=== PATIENT | female | born 1950 | race Caucasian/White ===

== ENCOUNTER 2023-05-22 08:50 | Emergency (ER) | payer OTHER, SELFPAY ==
[2023-05-22 08:57] VITALS: BP 101/59
[2023-05-22 09:05] LABS: Glucose - Point of Care 197 mg/dl (70-99)
[2023-05-22 09:58] LABS: Hemoglobin 13.7 g/dL (12.0-16.0); Mean Corp Hgb Conc. 36.1 g/dL (33.0-37.0); Mean Corpuscular Hgb 31.1 pg (27.0-31.0); Mean Corpuscular Volume 86.4 fL (81.0-99.0); Mean Platelet Volume 10.6 fL (7.4-10.4); Platelet Count 240 10^3/uL (130-400); Red Cell Dist. Width 11.9 % (11.5-14.5); White Blood Cell Count 7.7 10^3/uL (4.8-10.8)
[2023-05-22 10:13] LABS: ALT (SGPT) 16 U/L (0-35); AST (SGOT) 19 U/L (14-36); Albumin 3.5 g/dl (3.5-5.0); Alkaline Phosphatase 133 U/L (38-126); Blood Urea Nitrogen 14 mg/dl (7-17); Calcium 9.4 mg/dl (8.4-10.2); Carbon Dioxide 24 mmol/L (22-30); Chloride 101 mmol/L (98-107); Glucose 211 mg/dl (70-99); Potassium 4.2 mmol/L (3.5-5.1); Sodium 135 mmol/L (135-145); Total Bilirubin 0.6 mg/dl (0.2-1.3); Total Protein 6.1 g/dl (6.3-8.2); eGFR > 60.00
--- NOTE | 2023-05-22 10:47 | ED.GENMED ---
History of Present Illness
General
Chief Complaint: Blood Sugar Problem
Source: patient
Exam Limitations: none
Time Seen by Provider: 05/22/23 09:18
Nursing documentation reviewed up to this point in time: agreed with
Travel History
Have you had any contact with someone who has COVID-19?: No
Do you have any symptoms of coronavirus? Fever > 100 degrees, chills, cough, shortness of breath, sore throat, loss of taste or smell, muscle aches, or headache?: No
History of Present Illness
History of Present Illness:
Patient with history of type 2 diabetes on metformin, with recent hemoglobin A1c 13 last week, presents to ED secondary to elevated blood sugar noted on her glucometer this morning, which registered 'high' when checked multiple times. Denies
abdominal pain. Denies nausea or vomiting. Denies fever or chills. Denies recent illness. Denies recent change in medications or diet. Patient is scheduled to speak with her primary care physician next week regarding her treatment. In the
meantime, patient does admit that she has not been as careful with her diet.
Past History
Past History
ED Past Medical History: CAD, Cancer (basal cell), GERD, HTN, Hypercholesterolemia, NIDDM, Psychiatric (Anxiety, Depression) and Other (Restless leg syndrome, josefina ramirez, PNA)
ED Past Surgical History: Cardiac (Stents x 4), Gynecological (Partial hysterectomy), Orthopedic (Foot surgery, Carpal tunnel, Knee surgery X 3), Tonsilectomy and Other (Basal cell removal, breast augmentation)
Social History
Tobacco: Smoker
Alcohol: None
Drug: None
Personal:
Living: alone
Employment: Employed
Family History
Family History: Other
Review of Systems
Review of Systems
Allergies reviewed?: Yes
All Other Systems: ROS reviewed and negative except as documented in HPI and ROS
Constitutional: Reports no symptoms
EENT: Reports no symptoms
Respiratory: Reports no symptoms
ABD/GI: Reports no symptoms
: Reports no symptoms
Musculoskeletal: Reports no symptoms
Skin: Reports no symptoms
Neurological: Reports no symptoms
Phy Exam
Physical Exam
Physical Exam:
Physical Exam
General: no apparent distress, not acutely ill. afebrile
Head: nc/at. eomi
Neck: supple. no meningeal signs
Heart: s1/s2 regular rate and rhythm, no murmur. equal radial pulses.
Lungs: no acute respiratory distress. clear bilaterally
Abdomen: normal bowel sounds. not tender.
Neuro: alert and oriented. no focal neurological deficits
Skin: no rash
Psychiatric: well kept. interactive and cooperative
Extremities: no edema. no calf tenderness.
Course
Orders/Labs/Results
Orders:
Orders
05/22/23 09:53
Complete Blood Count/No Diff Urgent
Comprehensive Metabolic Panel Urgent
Abnormal Lab Results
05/22/23 05/22/23
09:02 09:53
MCH 31.1 H pg
(27.0-31.0)
MPV 10.6 H fL
(7.4-10.4)
Creatinine 0.5 L mg/dL
(0.6-1.0)
Glucose 211 H mg/dl
(70-99)
Alkaline Phosphatase 133 H U/L
(38-126)
Total Protein 6.1 L g/dl
(6.3-8.2)
POC Glucose 197 H mg/dl
(70-99)
05/22/23 09:53
05/22/23 09:53
Vital Signs
Initial and Last Documented VS:
Initial Vital Signs
Temp Pulse Resp BP Pulse Ox
98.1 F 79 18 101/59 98
05/22/23 08:57 05/22/23 08:57 05/22/23 08:57 05/22/23 08:57 05/22/23 08:57
Last Documented Vital Signs
Temp Pulse Resp BP Pulse Ox
98.1 F 78 16 121/74 98
05/22/23 08:57 05/22/23 11:25 05/22/23 11:25 05/22/23 11:25 05/22/23 11:25
MDM/Problems Addressed
MDM/Problems Addressed:
Blood work noted, significant for mild hyperglycemia without anion gap. Patient otherwise remains afebrile, hemodynamically stable, and nontoxic-appearing. Patient advised to speak with her primary care physician tomorrow regarding her treatment
plan, including obtaining or recalibrating her glucometer.
*Critical Care Note
Total Time (30-74mins, 75-104mins- exclusive of procedures): Not Applicable
ED Attending Note
-
Portions of this chart may have been created with voice recognition software.� Occasional wrong word or��sound alike� substitutions may have occurred due to the inherent limitations of voice recognition software.
Discharge Plan
Departure
Patient Disposition: Home (Routine Discharge)
Date of Disposition: 05/22/23
Time of Disposition: 11:08
Patient with high blood pressure during this ER visit?: Yes
Discharge Problem:
Hyperglycemia
Instructions: Guide to Eating When You Have Diabetes, High Blood Sugar, Adult (DC), Diabetes and diet
Prescriptions:
No Action
pramipexole 0.25 MG tablet
0.5 mg PO QPM
Patient Comments:
FOR RESTLESS LEGS
Rx Instructions:
MAY TAKE 0.75MG
spironolactone 25 MG tablet
50 mg PO DAILY
losartan 25 MG tablet
25 mg PO DAILY
ibuprofen [Advil] 200 MG tablet
200 mg PO PRN PRN (Reason: arthritis )
aspirin [Aspirin Childrens] 81 MG tablet,chewable
81 mg PO DAILY
nitroglycerin 0.4 MG tablet, sublingual
0.4 mg sublingual [id number] PRN (Reason: chest pain) Qty: 25 2RF
metformin 1,000 MG tablet
1,000 mg PO BID Qty: 0 0RF
simvastatin 40 mg Tablet
40 mg PO HS
furosemide [Lasix] 20 mg Tablet
20 mg PO DAILY PRN (Reason: ANKLE SWELLING)
repaglinide 2 mg Tablet
2 mg PO BID
Patient Comments:
BEFORE MEALS
cholecalciferol (vitamin D3) [Vitamin D3] 50 mcg (2,000 unit) Capsule
50 mcg PO DAILY
gabapentin 400 mg Tablet
400 mg PO DAILY
estradiol 0.01 % (0.1 mg/gram) Cream
1 g VAGINAL .TWICE PER WEEK
doxycycline hyclate 100 mg capsule
100 mg PO BID 10 Days Qty: 20 0RF
oxycodone 5 mg tablet
5 mg PO Q8H PRN (Reason: Pain) Qty: 10 0RF
azithromycin 250 mg tablet
250 mg PO DAILY 4 Days Qty: 4 0RF
Referrals:
Fly,Mimi, DO [Family Provider] -
Activity Restrictions/Additional Instructions:
As discussed, please follow-up with your primary care physician for reevaluation, including potentially adding a second agent to your current diabetic medication regimen.
Interventions
Interventions:
*Risk Screen - Suicide Last Done: 05/22/23 08:59
*General Assessment Last Done: 05/22/23 08:59
*Neglect/Abuse Screening Last Done: 05/22/23 08:59
ED- Fall Risk Assessment Last Done: 05/22/23 11:25
*ED COVID-19 Vaccine History Last Done: 05/22/23 08:59
*Nursing Disposition Last Done: 05/22/23 11:25
ED- Neurological Assessment Last Done: 05/22/23 09:46
Discharge Date and Time
Discharge Date/Time: 05/22/23 11:26
[2023-05-22 11:25] VITALS: BP 121/74
== END 2023-05-22 11:26 | disposition home or self-care (01) ==
LOC: EMR 08:50
PROVIDERS: EMERGENCY PHYSICIAN Emergency Medicine; FAMILY PHYSICIAN Internal Medicine
DX: E11.65 Type 2 diabetes mellitus with hyperglycemia (principal); I25.10 Atherosclerotic heart disease of native coronary artery without angina pectoris; K21.9 Gastro-esophageal reflux disease without esophagitis; I10 Essential (primary) hypertension; E78.00 Pure hypercholesterolemia, unspecified; G25.81 Restless legs syndrome; F17.200 Nicotine dependence, unspecified, uncomplicated; Z95.5 Presence of coronary angioplasty implant and graft
CPT/HCPCS: 99283; 80053; 82962; 85027

== ENCOUNTER 2023-05-26 11:22 | Emergency (ER) | payer OTHER, SELFPAY ==
[2023-05-26 11:30] VITALS: BP 134/80
--- NOTE | 2023-05-26 11:59 | ED.GENMED ---
History of Present Illness
General
Chief Complaint: Musculo-Skeletal Complaint
Time Seen by Provider: 05/26/23 11:40
Travel History
Have you had any contact with someone who has COVID-19?: No
Do you have any symptoms of coronavirus? Fever > 100 degrees, chills, cough, shortness of breath, sore throat, loss of taste or smell, muscle aches, or headache?: No
History of Present Illness
History of Present Illness:
73-year-old female presents to the emergency department for evaluation of right upper chest wall pain ongoing for the past 2 to 3 weeks. She states it began after receiving a forceful hug from her boyfriend and has not relented since onset. Pain
is pleuritic, nonradiating. Has not taken any [id number] medications for symptoms. Denies any cough or shortness of breath, denies any leg swelling
Past History
Past History
ED Past Medical History: CAD, Cancer (basal cell), GERD, HTN, Hypercholesterolemia, NIDDM, Psychiatric (Anxiety, Depression) and Other (Restless leg syndrome, josefina ramirez, PNA)
ED Past Surgical History: Cardiac (Stents x 4), Gynecological (Partial hysterectomy), Orthopedic (Foot surgery, Carpal tunnel, Knee surgery X 3), Tonsilectomy and Other (Basal cell removal, breast augmentation)
Social History
Tobacco: Smoker
Alcohol: None
Drug: None
Personal:
Living: alone
Employment: Employed
Family History
Family History: Other
Review of Systems
Review of Systems
Allergies reviewed?: Yes
All Other Systems: ROS reviewed and negative except as documented in HPI and ROS
Phy Exam
Physical Exam
Physical Exam:
GEN: Well appearing, NAD, WDWN
HEENT: Oral mucosa moist, no scleral icterus
Cardiac: Regular rate and rhythm, no murmurs
Lung: No respiratory distress, no tachypnea, lungs clear to auscultation bilaterally
MSK: No gross deformity or injuries. Focal chest wall tenderness to the right anterior axillary line, no crepitus or deformities
Skin: Good color, no pallor or jaundice, no rashes
Neuro: AO x3, moves all extremities freely
Psych: Calm, cooperative
Course
Orders/Labs/Results
Orders:
Orders
05/26/23 11:59
CR Chest - 2 Views Urgent
Comment:
Reason For Exam: R chest injury
Vital Signs
Initial and Last Documented VS:
Initial Vital Signs
Temp Pulse Resp BP Pulse Ox
98.8 F 89 18 134/80 97
05/26/23 11:30 05/26/23 11:30 05/26/23 11:30 05/26/23 11:30 05/26/23 11:30
Last Documented Vital Signs
Temp Pulse Resp BP Pulse Ox
98.8 F 89 18 134/80 97
05/26/23 11:30 05/26/23 11:30 05/26/23 11:30 05/26/23 11:30 05/26/23 11:30
MDM/Problems Addressed
MDM/Problems Addressed:
Patient's chest x-ray was independently interpreted by me showing no evidence for osseous abnormality or pulmonary injury. Likely chest wall pain on the basis of prior trauma, recommend NSAIDs and topical lidocaine
*Critical Care Note
Total Time (30-74mins, 75-104mins- exclusive of procedures): Not Applicable
ED Attending Note
-
Portions of this chart may have been created with voice recognition software.� Occasional wrong word or��sound alike� substitutions may have occurred due to the inherent limitations of voice recognition software.
Discharge Plan
Departure
Patient Disposition: Home (Routine Discharge)
Date of Disposition: 05/26/23
Time of Disposition: 13:23
Patient with high blood pressure during this ER visit?: No
Discharge Problem:
Muscle strain of anterior chest wall
Instructions: Chest Pain That Is Not Caused by the Heart (DC)
Prescriptions:
No Action
pramipexole 0.25 MG tablet
0.5 mg PO QPM
Patient Comments:
FOR RESTLESS LEGS
Rx Instructions:
MAY TAKE 0.75MG
spironolactone 25 MG tablet
50 mg PO DAILY
losartan 25 MG tablet
25 mg PO DAILY
ibuprofen [Advil] 200 MG tablet
200 mg PO PRN PRN (Reason: arthritis )
aspirin [Aspirin Childrens] 81 MG tablet,chewable
81 mg PO DAILY
nitroglycerin 0.4 MG tablet, sublingual
0.4 mg sublingual [id number] PRN (Reason: chest pain) Qty: 25 2RF
metformin 1,000 MG tablet
1,000 mg PO BID Qty: 0 0RF
simvastatin 40 mg Tablet
40 mg PO HS
furosemide [Lasix] 20 mg Tablet
20 mg PO DAILY PRN (Reason: ANKLE SWELLING)
repaglinide 2 mg Tablet
2 mg PO BID
Patient Comments:
BEFORE MEALS
cholecalciferol (vitamin D3) [Vitamin D3] 50 mcg (2,000 unit) Capsule
50 mcg PO DAILY
gabapentin 400 mg Tablet
400 mg PO DAILY
estradiol 0.01 % (0.1 mg/gram) Cream
1 g VAGINAL .TWICE PER WEEK
doxycycline hyclate 100 mg capsule
100 mg PO BID 10 Days Qty: 20 0RF
oxycodone 5 mg tablet
5 mg PO Q8H PRN (Reason: Pain) Qty: 10 0RF
azithromycin 250 mg tablet
250 mg PO DAILY 4 Days Qty: 4 0RF
Referrals:
Fly,Mimi, DO [Family Provider] -
Activity Restrictions/Additional Instructions:
Try ibuprofen and topical lidocaine patches for pain control
Interventions
Interventions:
*Risk Screen - Suicide Last Done: 05/26/23 11:30
*General Assessment Last Done: 05/26/23 11:30
*Neglect/Abuse Screening Last Done: 05/26/23 11:30
ED- Fall Risk Assessment Last Done: 05/26/23 12:07
*Nursing Disposition Last Done: 05/26/23 13:34
ED- Cardiac Assessment Last Done: 05/26/23 12:07
ED-Musculoskeletal Assessment Last Done: 05/26/23 12:07
ED- Pulmonary Assessment Last Done: 05/26/23 12:07
Discharge Date and Time
Discharge Date/Time: 05/26/23 13:35
== END 2023-05-26 13:35 | disposition home or self-care (01) ==
LOC: EMR 11:22
PROVIDERS: EMERGENCY PHYSICIAN Student in an Organized Health Care Education/Training Program; FAMILY PHYSICIAN Internal Medicine
DX: S29.011A Strain of muscle and tendon of front wall of thorax, initial encounter (principal); R07.89 Other chest pain; S21.101A Unspecified open wound of right front wall of thorax without penetration into thoracic cavity, initial encounter; X58.XXXA Exposure to other specified factors, initial encounter; Y93.89 Activity, other specified
CPT/HCPCS: 99283; 71046

== ENCOUNTER → 2023-06-29 11:43 | Day surgery (SDC) | payer OTHER, SELFPAY | LOC: SDS 11:43 | PROVIDERS: ATTENDING PHYSICIAN Internal Medicine | DX: D32.0 Benign neoplasm of cerebral meninges (principal); R40.0 Somnolence | CPT/HCPCS: 70553; A9575 ==

== ENCOUNTER 2023-07-19 22:12 | Emergency (ER) | payer OTHER, SELFPAY ==
[2023-07-19 22:15] VITALS: BP 118/60
[2023-07-19 22:39] LABS: % Basophils 0.7 % (0-2); % Eosinophils 1.8 % (0-6); % Immature Granulocytes 0.8 % (0-0.5); % Lymphocytes 24.3 % (20.5-51.1); % Monocytes 7.9 % (1.7-9.3); % Neutrophils 64.5 % (42.2-75.2); Absolute Basophils 0.1 10^3/uL (0-0.2); Absolute Eosinophils 0.2 10^3/uL (0-0.7); Absolute Immature Granulocytes 0.1 10^3/uL (0-0.05); Absolute Lymphocytes 2.1 10^3/uL (1.2-3.4); Absolute Monocytes 0.7 10^3/uL (0.1-0.6); Absolute Neutrophils 5.6 10^3/uL (1.4-6.5); Hematocrit 39.3 % (37.0-47.0); Hemoglobin 13.5 g/dL (12.0-16.0); Mean Corp Hgb Conc. 34.4 g/dL (33.0-37.0); Mean Corpuscular Hgb 30.3 pg (27.0-31.0); Mean Corpuscular Volume 88.1 fL (81.0-99.0); Mean Platelet Volume 9.8 fL (7.4-10.4); Nucleated Red Blood Cells % 0 %; Platelet Count 253 10^3/uL (130-400); Red Blood Cell Count 4.46 10^6/uL (4.20-5.40); Red Cell Dist. Width 12.9 % (11.5-14.5); White Blood Cell Count 8.7 10^3/uL (4.8-10.8)
[2023-07-19 22:51] LABS: ALT (SGPT) 20 U/L (0-35); AST (SGOT) 25 U/L (14-36); Alkaline Phosphatase 118 U/L (38-126); Blood Urea Nitrogen 25 mg/dl (7-17); Calcium 9.5 mg/dl (8.4-10.2); Carbon Dioxide 29 mmol/L (22-30); Chloride 105 mmol/L (98-107); Glucose 89 mg/dl (70-99); Potassium 4.5 mmol/L (3.5-5.1); Sodium 138 mmol/L (135-145); Total Bilirubin 0.4 mg/dl (0.2-1.3); Total Protein 6.6 g/dl (6.3-8.2); eGFR 53.39
[2023-07-20] VITALS (8 sets, daily range): BP systolic 96–133; BP diastolic 60–85; PULSE 73–80; BMI 27.8
--- NOTE | 2023-07-20 00:06 | ED.GENMED ---
History of Present Illness
General
Chief Complaint: Fainting Sensation
Source: patient
Exam Limitations: none
Time Seen by Provider: 07/19/23 23:40
Travel History
Have you had any contact with someone who has COVID-19?: No
Do you have any symptoms of coronavirus? Fever > 100 degrees, chills, cough, shortness of breath, sore throat, loss of taste or smell, muscle aches, or headache?: No
History of Present Illness
History of Present Illness:
This is a 73 year old female that comes in with c/o dizziness. States that she awoke yesterday morning around 4-4:30am and she was very dizzy. States that she felt like her head was spinning and she felt like she was going to pass out. States that
she could hardly walk. States that she went back to sleep till about 10:30am. States that she still felt dizzy when she got up and felt like she was going to pass out. State that she decided to wait to see if she felt better as she didn't want to
drive like that. States that she feels some better towards the end of the day but she still feels lightheaded. States that she did have a little diarrhea today. Denies any fever, chills, chest pain, SOB, abd pain, nausea, vomiting, headache, urinary
burning.
Past History
Past History
ED Past Medical History: CAD, Cancer (basal cell), GERD, HTN, Hypercholesterolemia, NIDDM, [place], Psychiatric (Anxiety, Depression) and Other (Restless leg syndrome, josefina ramirez, PNA, Headache, )
ED Past Surgical History: Cardiac (Stents x 4), Cholecystectomy, Gynecological (Partial hysterectomy), Orthopedic (Foot surgery, Carpal tunnel, Knee surgery X 3), Tonsilectomy and Other (Basal cell removal, breast augmentation, Abd adhesions )
Social History
Tobacco: Former smoker
Alcohol: Occasional
Drug: None
Personal:
Living: alone
Employment: Employed
Family History
Family History: Other
Review of Systems
Review of Systems
All Other Systems: ROS reviewed and negative except as documented in HPI and ROS
Constitutional: Reports no symptoms; Denies fever or chills
EENT: Reports no symptoms
Respiratory: Reports no symptoms; Denies cough or trouble breathing
Cardiac: Reports no symptoms; Denies chest pain
ABD/GI: Reports diarrhea; Denies abdominal pain, nausea or vomiting
: Reports no symptoms; Denies dysuria, frequency or urgency
Musculoskeletal: Reports no symptoms
Skin: Reports no symptoms
Neurological: Reports dizzy; Denies headache
Psychiatric: Reports no symptoms
Phy Exam
General Physical Exam
General Presentation: no apparent distress
General age: appears stated age
General Skin: warm and dry
General Habitus: elderly
General Mental: alert
General Hydration: appears well hydrated
ENT Exam
ENT Exam: TM's normal, pharynx normal and neck supple
Eye Exam
Eye Exam: PERRL and EOMI
Cardiovascular Exam
Cardiovascular Exam: regular rate/rhythm, no murmur and normal peripheral pulses
Pulmonary Exam
Pulmonary Exam: lungs clear, no respiratory distress, no rales, chest non tender, no crackles, no rhonchi, no wheezing and no cough
Gastrointestinal Exam
Gastrointestinal Exam: normal bowel sounds, soft, no organomegaly, no pulsatile mass, non distended and tender (Epigastric tenderness with palpation)
NIH Stroke Score
Level of Consciousness: 0 - Alert
LOC questions: 0-Answers both correctly
LOC Commands: 0-Performs both correctly
Best Gaze: 0-Normal
Visual Lloyd: 0=Normal, no visual loss
Facial palsy: 0=Normal, symmetrical
Motor - Right Arm: 0=No drift 10 seconds
Motor - Left Arm: 0=No drift 10 seconds
Motor - Right Le-No drift 5 seconds
Motor - Left Le-No drift 5 seconds
Limb Ataxia: 0-Absent
Sensation: 0-Normal
Best Language: 0-No aphasia
Dysarthria: 0-Normal
Extinction and Inattention: 0-No abnormality
Total Score:: 0
Musculoskeletal Exam
Musculoskeletal Exam: full ROM and edema (+1 pitting edema of ankles)
Skin Exam
Skin Exam: normal color, warm/dry, no rash and no petechia
Psychiatric Exam
Psychiatric Exam: normal mood/affect
Course
Orders/Labs/Results
Orders:
Orders
07/19/23 22:17
Electrocardiogram (*1) Urgent
Reason for Study: Syncope
EKG- Treatment ONCE
07/19/23 22:32
CMP [Comprehensive Metabolic Panel] Urgent
Complete Blood Count/With Diff Urgent
07/20/23 00:05
CT Head W/o Iv Contrast Urgent
Comment:
Reason For Exam: dizziness, feels her balance was off
Orthostatic VS- Treatment ONCE
0.9% Sodium Chloride 1000 ml [Nss] 1,000 ml IV BOLUS
07/20/23 01:13
Troponin I Urgent
Abnormal Lab Results
07/19/23
22:32
Abs Immat Gran (auto) 0.1 H 10^3/uL
(0-0.05)
Absolute Monos (auto) 0.7 H 10^3/uL
(0.1-0.6)
Immature Gran % 0.8 H %
(0-0.5)
BUN 25 H mg/dl
(7-17)
Creatinine 1.1 H mg/dL
(0.6-1.0)
07/19/23 22:32
07/19/23 22:32
Dehydration. Troponin <0.012
Vital Signs
Initial and Last Documented VS:
Initial Vital Signs
Temp Pulse Resp BP Pulse Ox
97.4 F 86 18 118/60 98
07/19/23 22:15 07/19/23 22:15 07/19/23 22:15 07/19/23 22:15 07/19/23 22:15
Last Documented Vital Signs
Temp Pulse Resp BP Pulse Ox
97.4 F 74 14 96/60 93
07/19/23 22:15 07/20/23 01:00 07/20/23 01:00 07/20/23 01:00 07/20/23 01:00
MDM/Problems Addressed
Differential Diagnosis Includes:
vertigo, dehydration.
MDM/Problems Addressed:
This is a 73 year old female that comes in with c/o dizziness. State that she got up at 4-4:30am and was dizzy. States that her head was spinning and she felt like she was going to pass out. States that she went back to bed and slept till 10:30am.
States that she was still dizzy when she got up. States that she waited to see if she would feel better and it got a little better. However, she felt she needed to be seen.
Will get labs, CT head. Give IV fluids
Back into see patient. patient resting comfortable. Explained that her blood work shows dehydration and her CT of the head was normal. Questioned patient how she felt when she stood up for the Orthostatic vitals signs. States that she was still
dizzy and had to hold onto the stretcher. Will walk patient after Troponin is back.
Back into see patient. Explained that the troponin is normal. Got patient OOB to ambulate. Patient states that she just feels like her head is not clear and is a little unsteady on her feet. States that she feels better then she did before. Was
going to admit patient due to dizziness and patient refused. States that she needs to go home. Will discharge patient home .
Chronic conditions affecting care: DM
Acute Exacerbation and/or Progression of Chronic Illness:
NA
*Radiology
Radiology exam reviewed: radiology read reviewed (CT head- No acute intracranial findinigs. No evidence of intracranial hemorrhage, mass-effect, midline shift, or extra-axial fluid collection. Atherosclerotic vascular diseae. )
*Pulse Oximetry
Patient hypoxic: no
*EKG
Interpreted by ED Provider?: Yes
Heart Rate: 78
Rate: normal
Rhythm: sinus
[place]: normal axis
Interval: normal interval
QRS Pattern: normal QRS
Ischemia: no ischemia
*Critical Care Note
Total Time (30-74mins, 75-104mins- exclusive of procedures): Not Applicable
ED Attending Note
-
Portions of this chart may have been created with voice recognition software.� Occasional wrong word or��sound alike� substitutions may have occurred due to the inherent limitations of voice recognition software.
Discharge Plan
Departure
Patient Disposition: Home (Routine Discharge)
Date of Disposition: 07/20/23
Time of Disposition: 02:07
Patient with high blood pressure during this ER visit?: No
Condition: Good
Covid-19: Not Applicable
Discharge Problem:
Acute dehydration, Dizziness
Instructions: Dehydration, Adult (DC), Dizziness, Adult ED
Prescriptions:
No Action
pramipexole 0.25 MG tablet
0.5 mg PO QPM
Patient Comments:
FOR RESTLESS LEGS
Rx Instructions:
MAY TAKE 0.75MG
spironolactone 25 MG tablet
50 mg PO DAILY
losartan 25 MG tablet
25 mg PO DAILY
ibuprofen [Advil] 200 MG tablet
200 mg PO PRN PRN (Reason: arthritis )
aspirin [Aspirin Childrens] 81 MG tablet,chewable
81 mg PO DAILY
nitroglycerin 0.4 MG tablet, sublingual
0.4 mg sublingual [id number] PRN (Reason: chest pain) Qty: 25 2RF
metformin 1,000 MG tablet
1,000 mg PO BID Qty: 0 0RF
simvastatin 40 mg Tablet
40 mg PO HS
furosemide [Lasix] 20 mg Tablet
20 mg PO DAILY PRN (Reason: ANKLE SWELLING)
repaglinide 2 mg Tablet
2 mg PO BID
Patient Comments:
BEFORE MEALS
cholecalciferol (vitamin D3) [Vitamin D3] 50 mcg (2,000 unit) Capsule
50 mcg PO DAILY
gabapentin 400 mg Tablet
400 mg PO DAILY
estradiol 0.01 % (0.1 mg/gram) Cream
1 g VAGINAL .TWICE PER WEEK
doxycycline hyclate 100 mg capsule
100 mg PO BID 10 Days Qty: 20 0RF
oxycodone 5 mg tablet
5 mg PO Q8H PRN (Reason: Pain) Qty: 10 0RF
azithromycin 250 mg tablet
250 mg PO DAILY 4 Days Qty: 4 0RF
Referrals:
Fly,Mimi, DO [Family Provider] - Follow up in 2-3 days
Activity Restrictions/Additional Instructions:
As discussed, your blood work shows that you are dehydrated. Please increase your water intake to 8-8oz glasses daily. Your CT of the head was normal along with your Troponin. You have been offered admission but refused. Please follow up with the
family doctor for further evaluation. IF YOU HAVE ANY OTHER CONCERNS PLEASE RETURN TO THE EMERGENCY ROOM.
Interventions
Interventions:
*Risk Screen - Suicide Last Done: 07/19/23 22:15
*General Assessment Last Done: 07/19/23 23:54
*Neglect/Abuse Screening Last Done: 07/19/23 22:15
ED- Fall Risk Assessment Last Done: 07/19/23 23:54
*ED COVID-19 Vaccine History Last Done: 07/19/23 23:54
ED- Neurological Assessment Last Done: 07/19/23 23:54
ED- Cardiac Assessment Last Done: 07/19/23 23:54
Discharge Date and Time
Print Language: ICELANDIC
[2023-07-20] MEDS: NSS 1000 IV (01:12)
[2023-07-20 02:01] LABS: Troponin I < 0.012 ng/ml
== END 2023-07-20 02:37 | disposition home or self-care (01) ==
LOC: EMR 22:12
PROVIDERS: Clinical Nurse Specialist Family Health; EMERGENCY PHYSICIAN Student in an Organized Health Care Education/Training Program; FAMILY PHYSICIAN Internal Medicine
DX: R42 Dizziness and giddiness (principal); E86.0 Dehydration; I25.10 Atherosclerotic heart disease of native coronary artery without angina pectoris; K21.9 Gastro-esophageal reflux disease without esophagitis; I10 Essential (primary) hypertension; E78.00 Pure hypercholesterolemia, unspecified; E11.9 Type 2 diabetes mellitus without complications; I25.2 Old myocardial infarction; F41.8 Other specified anxiety disorders; G25.81 Restless legs syndrome; Z87.891 Personal history of nicotine dependence; Z90.49 Acquired absence of other specified parts of digestive tract; Z95.5 Presence of coronary angioplasty implant and graft
CPT/HCPCS: 99284; 96360; 70450; 80053; 84484; 85025; 93005

== ENCOUNTER → 2023-07-29 18:30 | Outpatient (REF) | payer OTHER, SELFPAY | LOC: MRI 3T 18:30 | PROVIDERS: ATTENDING PHYSICIAN Orthopaedic Surgery Hand Surgery; FAMILY PHYSICIAN Internal Medicine | DX: S43.101A Unspecified dislocation of right acromioclavicular joint, initial encounter (principal); M25.511 Pain in right shoulder | CPT/HCPCS: 73221 ==

== ENCOUNTER 2023-09-30 22:23 | Emergency (ER) | payer OTHER, SELFPAY ==
[2023-09-30 22:29] VITALS: BP 134/68
[2023-09-30 22:44] LABS: Urine Albumin Negative (Neg - Trace); Urine Bilirubin Negative (Negative); Urine Character Slightly Cloudy (Clear); Urine Color Yellow; Urine Glucose Negative (Negative); Urine Ketone Negative (Negative); Urine Leukocyte 2+ (Negative); Urine Nitrite Negative (Negative); Urine Occult Blood Trace (Negative); Urine Specific Gravity 1.015 (<1.030); Urine Urobilinogen Negative (Neg - 1+)
[2023-09-30 22:51] LABS: Urine Bacteria Many (Negative); Urine Red Blood Cell 0-2 /HPF (0-2); Urine White Cell 26-30 /HPF (0-5)
[2023-09-30 22:52] VITALS: BMI 27.3
[2023-09-30 23:10] LABS: % Basophils 0.9 % (0-2); % Eosinophils 1.3 % (0-6); % Immature Granulocytes 0.4 % (0-0.5); % Lymphocytes 25.5 % (20.5-51.1); % Monocytes 6.8 % (1.7-9.3); % Neutrophils 65.1 % (42.2-75.2); Absolute Basophils 0.1 10^3/uL (0-0.2); Absolute Eosinophils 0.1 10^3/uL (0-0.7); Absolute Lymphocytes 1.9 10^3/uL (1.2-3.4); Absolute Monocytes 0.5 10^3/uL (0.1-0.6); Absolute Neutrophils 4.9 10^3/uL (1.4-6.5); Hematocrit 38.1 % (37.0-47.0); Hemoglobin 13.3 g/dL (12.0-16.0); Mean Corp Hgb Conc. 34.9 g/dL (33.0-37.0); Mean Corpuscular Hgb 30.4 pg (27.0-31.0); Mean Corpuscular Volume 87.2 fL (81.0-99.0); Mean Platelet Volume 9.9 fL (7.4-10.4); Nucleated Red Blood Cells % 0 %; Platelet Count 250 10^3/uL (130-400); Red Blood Cell Count 4.37 10^6/uL (4.20-5.40); Red Cell Dist. Width 12.5 % (11.5-14.5); White Blood Cell Count 7.5 10^3/uL (4.8-10.8)
[2023-09-30 23:18] VITALS: BP 142/77
--- NOTE | 2023-09-30 23:22 | ED.GENMED ---
History of Present Illness
General
Chief Complaint: Back Pain
Time Seen by Provider: 09/30/23 23:09
Travel History
Have you had any contact with someone who has COVID-19?: No
Do you have any symptoms of coronavirus? Fever > 100 degrees, chills, cough, shortness of breath, sore throat, loss of taste or smell, muscle aches, or headache?: No
History of Present Illness
History of Present Illness:
HPI: The patient has been having back pain / UTI symptoms 8d ago and was seen by PCP 7d ago and placed on Keflex. Tried Advil w/o improvement. She has been having back pain. She states she does not normally have dysuria with her urinary tract
infections but rather just has back pain.
EXAM:
GENERAL: Well appearing in no distress
HEENT: Moist oral mucosa
CARDIOVASCULAR: No murmurs, normal heart rate, regular rhythm, No chest wall tenderness
PULMONARY: No respiratory distress, breath sounds are clear and equal
ABDOMEN: Soft with no peritoneal signs, mild suprapubic tenderness
BACK: No CVA tenderness other than perhaps minimal right CVA tenderness
NEUROLOGIC: Excellent strength all extremities, no coordination deficits
PSYCHIATRIC: Appropriate mental status, normal insight and judgement
EXTREMITIES: Nontender, no edema, moves all extremities equally
SKIN: No rash, no lesions
TIME OF INITIAL ENCOUNTER: 11:20 PM
NUMBER AND COMPLEXITY OF PROBLEMS ADDRESSED AT THE ENCOUNTER
� Chronic conditions affecting care: High blood pressure, hyperlipidemia, CAD/VT, diabetes, anxiety/depression, thyroid disease
� Acute Exacerbation and/or Progression of Chronic Illness: This is an acute but recurring problem
� Differential Diagnosis includes: UTI, pyelonephritis, ureteral stone, diverticulitis unlikely
AMOUNT AND/OR COMPLEXITY OF DATA TO BE REVIEWED AND ANALYZED
� I performed an independent evaluation of and my interpretation is:
EKG:
CT:
X-rays:
Laboratory Studies: White count normal at 7.5, urinalysis shows 26-30 white cells with many bacteria and 2+ leukocyte esterase. Renal function normal.
Other:
� Review of other/old records: I look for old records but there are no old urine cultures for review. The patient was seen here with dehydration 2 months ago.
� Clinical information was obtained by an independent historian: None needed
� Prescriptions/Medications Considered but not given:
� Further testing considered but not performed: CT imaging however the patient has no significant CVA tenderness and symptoms are more consistent with UTI as opposed to kidney stone.
RISK OF COMPLICATIONS AND/OR MORBIDITY OR MORTALITY OF PATIENT MANAGEMENT
� Social determinants of health affecting care: Lives at home
� Discussion with other providers:
� Escalation of care including admission/observation vs risk of discharge considered: The patient is a diabetic and still has signs of urinary tract infection despite being on oral medications. Therefore I offered and considered
admission to the hospital however the patient strong prefers outpatient management show I feel would be reasonable. Give a dose of IV Rocephin as well as Toradol and will also switch to Cipro. She states she is tolerated Cipro in the past.
Past History
Past History
ED Past Medical History: CAD, Cancer (basal cell), GERD, HTN, Hypercholesterolemia, NIDDM, [place], Psychiatric (Anxiety, Depression) and Other (Restless leg syndrome, josefina ramirez, PNA, Headache, )
ED Past Surgical History: Cardiac (Stents x 4), Cholecystectomy, Gynecological (Partial hysterectomy), Orthopedic (Foot surgery, Carpal tunnel, Knee surgery X 3), Tonsilectomy and Other (Basal cell removal, breast augmentation, Abd adhesions )
Social History
Tobacco: Former smoker
Alcohol: Occasional
Drug: None
Personal:
Living: alone
Employment: Employed
Family History
Family History: Other
Phy Exam
Physical Exam
Physical Exam:
See HPI
Course
Orders/Labs/Results
Orders:
Orders
09/30/23 22:37
Urinalysis Reflex To Culture Urgent
Date Specimen was Collected: 09/30/23
Time Specimen was Collected: 22:36
Urine Microscopic Reflex Cult Urgent
Urine Culture Urgent
JOHNY Source: U
Specimen Description:
Date Specimen was Collected: 09/30/23
Time Specimen was Collected: 22:36
09/30/23 23:04
CMP [Comprehensive Metabolic Panel] Urgent
Complete Blood Count/With Diff Urgent
09/30/23 23:23
CefTRIAXone [Rocephin] 1,000 mg IV NOW STA
09/30/23 23:35
Ketorolac [Toradol] 15 mg IV NOW STA
Abnormal Lab Results
09/30/23 09/30/23
22:37 23:04
BUN 18 H mg/dl
(7-17)
Glucose 169 H mg/dl
(70-99)
Alkaline Phosphatase 135 H U/L
(38-126)
Ur Occult Blood Reflex Trace A
(Negative)
Leukocyte Esterase Rfl 2+ A
(Negative)
Urine WBC (Reflex) 26-30 A /HPF
(0-5)
Urine Bacteria (Reflex) Many A
(Negative)
09/30/23 23:04
09/30/23 23:04
Vital Signs
Initial and Last Documented VS:
Initial Vital Signs
Temp Pulse Resp BP Pulse Ox
99.1 F 81 15 134/68 99
09/30/23 22:29 09/30/23 22:29 09/30/23 22:29 09/30/23 22:29 09/30/23 22:29
Last Documented Vital Signs
Temp Pulse Resp BP Pulse Ox
98.4 F 83 18 142/77 99
09/30/23 23:05 09/30/23 23:18 09/30/23 23:18 09/30/23 23:18 09/30/23 23:18
*Critical Care Note
Total Time (30-74mins, 75-104mins- exclusive of procedures): Not Applicable
ED Attending Note
-
Portions of this chart may have been created with voice recognition software.� Occasional wrong word or��sound alike� substitutions may have occurred due to the inherent limitations of voice recognition software.
Discharge Plan
Departure
Patient Disposition: Home (Routine Discharge)
Date of Disposition: 09/30/23
Time of Disposition: 23:35
Patient with high blood pressure during this ER visit?: Yes
Discharge Problem:
Urinary tract infection
Prescriptions:
New
ciprofloxacin HCl 500 mg tablet
500 mg PO BID Qty: 14 0RF
No Action
pramipexole 0.25 MG tablet
0.5 mg PO QPM
Patient Comments:
FOR RESTLESS LEGS
Rx Instructions:
MAY TAKE 0.75MG
spironolactone 25 MG tablet
50 mg PO DAILY
losartan 25 MG tablet
25 mg PO DAILY
ibuprofen [Advil] 200 MG tablet
200 mg PO PRN PRN (Reason: arthritis )
aspirin [Aspirin Childrens] 81 MG tablet,chewable
81 mg PO DAILY
nitroglycerin 0.4 MG tablet, sublingual
0.4 mg sublingual [id number] PRN (Reason: chest pain) Qty: 25 2RF
metformin 1,000 MG tablet
1,000 mg PO BID Qty: 0 0RF
simvastatin 40 mg Tablet
40 mg PO HS
furosemide [Lasix] 20 mg Tablet
20 mg PO DAILY PRN (Reason: ANKLE SWELLING)
repaglinide 2 mg Tablet
2 mg PO BID
Patient Comments:
BEFORE MEALS
cholecalciferol (vitamin D3) [Vitamin D3] 50 mcg (2,000 unit) Capsule
50 mcg PO DAILY
gabapentin 400 mg Tablet
400 mg PO DAILY
estradiol 0.01 % (0.1 mg/gram) Cream
1 g VAGINAL .TWICE PER WEEK
doxycycline hyclate 100 mg capsule
100 mg PO BID 10 Days Qty: 20 0RF
oxycodone 5 mg tablet
5 mg PO Q8H PRN (Reason: Pain) Qty: 10 0RF
azithromycin 250 mg tablet
250 mg PO DAILY 4 Days Qty: 4 0RF
Activity Restrictions/Additional Instructions:
The urinalysis tonight does show signs of infection. Your white blood cell count is normal. Your blood sugar is high at 169. We gave a dose of Rocephin as well as a dose of IV Toradol to help with the pain. Continue intermittent use of
ibuprofen. You can also try Tylenol. I sent a prescription to your pharmacy for Cipro. Return here if worse. Follow-up with your primary care doctor.
Interventions
Interventions:
*Risk Screen - Suicide Last Done: 09/30/23 22:29
*General Assessment Last Done: 09/30/23 22:29
*Neglect/Abuse Screening Last Done: 09/30/23 22:29
ED-Musculoskeletal Assessment Last Done: 09/30/23 22:53
Discharge Date and Time
Print Language: CROATIAN
[2023-09-30 23:25] LABS: ALT (SGPT) 15 U/L (0-35); AST (SGOT) 22 U/L (14-36); Albumin 4.1 g/dl (3.5-5.0); Alkaline Phosphatase 135 U/L (38-126); Blood Urea Nitrogen 18 mg/dl (7-17); Calcium 9.7 mg/dl (8.4-10.2); Carbon Dioxide 24 mmol/L (22-30); Chloride 107 mmol/L (98-107); Estimated Creatinine Clearance 87 ml/min; Glucose 169 mg/dl (70-99); Sodium 141 mmol/L (135-145); Total Bilirubin 0.4 mg/dl (0.2-1.3); Total Protein 6.8 g/dl (6.3-8.2); eGFR > 60.00
[2023-09-30] MEDS: TORADOL 15 MG IV (23:39)
[2023-09-30] MEDS: ROCEPHIN 1000 MG IV (23:42)
[2023-09-30 23:50] VITALS: BP 123/66
== END 2023-10-01 00:17 | disposition home or self-care (01) ==
LOC: EMR 22:23
PROVIDERS: EMERGENCY PHYSICIAN Emergency Medicine; FAMILY PHYSICIAN Internal Medicine
DX: N39.0 Urinary tract infection, site not specified (principal); I10 Essential (primary) hypertension; Z87.891 Personal history of nicotine dependence; E11.9 Type 2 diabetes mellitus without complications
CPT/HCPCS: 99284; 96374; 96375; 80053; 81003; 81015; 85025; 87086

== ENCOUNTER 2023-10-15 16:35 | Emergency (ER) | payer OTHER, SELFPAY ==
[2023-10-15 16:46] VITALS: BP 105/57
[2023-10-15 17:40] VITALS: BP 126/53
[2023-10-15 17:47] LABS: % Basophils 0.6 % (0-2); % Immature Granulocytes 0.6 % (0-0.5); % Lymphocytes 20.2 % (20.5-51.1); % Neutrophils 71.6 % (42.2-75.2); Absolute Basophils 0.1 10^3/uL (0-0.2); Absolute Eosinophils 0.1 10^3/uL (0-0.7); Absolute Immature Granulocytes 0.1 10^3/uL (0-0.05); Absolute Lymphocytes 2.2 10^3/uL (1.2-3.4); Absolute Monocytes 0.6 10^3/uL (0.1-0.6); Absolute Neutrophils 7.6 10^3/uL (1.4-6.5); Hematocrit 40.6 % (37.0-47.0); Hemoglobin 14.3 g/dL (12.0-16.0); Mean Corp Hgb Conc. 35.2 g/dL (33.0-37.0); Mean Corpuscular Hgb 30.4 pg (27.0-31.0); Mean Corpuscular Volume 86.4 fL (81.0-99.0); Mean Platelet Volume 10.1 fL (7.4-10.4); Nucleated Red Blood Cells % 0 %; Platelet Count 237 10^3/uL (130-400); Red Cell Dist. Width 12.7 % (11.5-14.5); White Blood Cell Count 10.6 10^3/uL (4.8-10.8)
[2023-10-15 18:12] LABS: ALT (SGPT) 15 U/L (0-35); AST (SGOT) 24 U/L (14-36); Albumin 4.2 g/dl (3.5-5.0); Alkaline Phosphatase 104 U/L (38-126); Blood Urea Nitrogen 19 mg/dl (7-17); Calcium 9.5 mg/dl (8.4-10.2); Carbon Dioxide 27 mmol/L (22-30); Chloride 100 mmol/L (98-107); Glucose 142 mg/dl (70-99); Potassium 4.1 mmol/L (3.5-5.1); Sodium 138 mmol/L (135-145); Total Bilirubin 0.6 mg/dl (0.2-1.3); Total Protein 6.9 g/dl (6.3-8.2); eGFR > 60.00
--- NOTE | 2023-10-15 18:27 | ED.GENMED ---
History of Present Illness
General
Chief Complaint: Fainting Sensation
Time Seen by Provider: 10/15/23 18:12
History of Present Illness
History of Present Illness:
HPI: Patient came in because of a near syncopal event/fall. I saw this patient 2 weeks ago related to ongoing urinary symptoms which I switched antibiotic to Cipro. Today while shopping in [place], she abruptly had vertiginous symptoms. She
fell but did not strike her head and she was caught by a worker at the store. She did not have any chest pain or shortness of breath. She went home and started crying 'for 2 hours'. She was able to drive herself here.
EXAM:
GENERAL: Well appearing in no distress
HEENT: Moist oral mucosa
CARDIOVASCULAR: No murmurs, normal heart rate, regular rhythm, No chest wall tenderness
PULMONARY: No respiratory distress, breath sounds are clear and equal
ABDOMEN: Soft with no peritoneal signs, no tenderness
NEUROLOGIC: Excellent strength all extremities, no coordination deficits, normal finger-nose testing
PSYCHIATRIC: Appropriate mental status, normal insight and judgement
EXTREMITIES: Nontender, no edema, moves all extremities equally
SKIN: No rash, no lesions
TIME OF INITIAL ENCOUNTER: 6:30 PM
NUMBER AND COMPLEXITY OF PROBLEMS ADDRESSED AT THE ENCOUNTER
� Chronic conditions affecting care: High blood pressure, hyperlipidemia, CAD, diabetes, anxiety/depression
� Acute Exacerbation and/or Progression of Chronic Illness: This is an acute problem
� Differential Diagnosis includes: Positional vertigo, doubt dysrhythmia, CVA very unlikely, hypoglycemia, dehydration
AMOUNT AND/OR COMPLEXITY OF DATA TO BE REVIEWED AND ANALYZED
� I performed an independent evaluation of and my interpretation is:
EKG:
CT:
X-rays:
Laboratory Studies: White count 10.6, hemoglobin 14.3, normal renal function, glucose 142, lactic elevated
Other:
� Review of other/old records: Urine culture from 2 weeks ago suggested contamination, white count from 2 weeks ago was lower than it is tonight
� Clinical information was obtained by an independent historian: None needed
� Prescriptions/Medications Considered but not given:
� Further testing considered but not performed: Considered CT brain however the patient has a nonfocal neurologic examination with no abnormal coordination
RISK OF COMPLICATIONS AND/OR MORBIDITY OR MORTALITY OF PATIENT MANAGEMENT
� Social determinants of health affecting care: Lives at home.
� Discussion with other providers:
� Escalation of care including admission/observation vs risk of discharge considered: The patient also was concerned of UTI as a cause of her episode of vertigo. Temperature was slightly high here and states this is higher than
her typical normal�will check lactic and blood cultures as her white count is slightly higher than prior. She was restarted on another round of Cipro recently for possible UTI recurrence. Lactic 2.8 - ordered additional IVF. Given the elevation
of the lactic, urinalysis obtained but shows no sign of infection. Of note, the patient is on metformin which I suspect is the more likely cause of the mild elevation of lactate. On reassessment at 9:40 PM, the patient overall feels improved going
home.
Past History
Past History
ED Past Medical History: CAD, Cancer (basal cell), GERD, HTN, Hypercholesterolemia, NIDDM, [place], Psychiatric (Anxiety, Depression) and Other (Restless leg syndrome, josefina ramirez, PNA, Headache, )
ED Past Surgical History: Cardiac (Stents x 4), Cholecystectomy, Gynecological (Partial hysterectomy), Orthopedic (Foot surgery, Carpal tunnel, Knee surgery X 3), Tonsilectomy and Other (Basal cell removal, breast augmentation, Abd adhesions )
Social History
Tobacco: Former smoker
Alcohol: Occasional
Drug: None
Personal:
Living: alone
Employment: Employed
Family History
Family History: Other
Phy Exam
Physical Exam
Physical Exam:
See HPI
Course
Orders/Labs/Results
Orders:
Orders
10/15/23 17:43
Complete Blood Count/With Diff Urgent
Comprehensive Metabolic Panel Urgent
10/15/23 18:30
Electrocardiogram (*1) Urgent
Reason for Study: Syncope
EKG- Treatment ONCE
10/15/23 18:38
0.9% Sodium Chloride 500 ml [Nss] 500 ml IV BOLUS
10/15/23 18:50
Lactic Acid Q4H
Comment: CANCEL 2nd LACTIC ACID IF 1st LACTIC ACID IS LESS THAN 2
10/15/23 18:51
Blood Culture Q30M
JOHNY Source: Blood/Venous
Specimen Description:
Blood Culture Q30M
JOHNY Source: Blood/Venous
Specimen Description:
10/15/23 19:59
0.9% Sodium Chloride 1000 ml [Nss] 1,000 ml IV BOLUS
10/15/23 20:11
Urinalysis Reflex To Culture Urgent
Date Specimen was Collected: 10/15/23
Time Specimen was Collected: 20:08
10/15/23 21:40
Lactic Acid Q4H
Comment: CANCEL 2nd LACTIC ACID IF 1st LACTIC ACID IS LESS THAN 2
Abnormal Lab Results
10/15/23 10/15/23 10/15/23
17:43 18:50 20:11
Abs Immat Gran (auto) 0.1 H 10^3/uL
(0-0.05)
Absolute Neuts (auto) 7.6 H 10^3/uL
(1.4-6.5)
Immature Gran % 0.6 H %
(0-0.5)
Lymphocytes % 20.2 L %
(20.5-51.1)
BUN 19 H mg/dl
(7-17)
Glucose 142 H mg/dl
(70-99)
Lactic Acid 2.8 H mmol/L
(0.7-2.0)
Urine Ketones Trace A
(Negative)
10/15/23 17:43
10/15/23 17:43
Vital Signs
Initial and Last Documented VS:
Initial Vital Signs
Temp Pulse Resp BP Pulse Ox
99.5 F 95 18 105/57 98
10/15/23 16:46 10/15/23 16:46 10/15/23 16:46 10/15/23 16:46 10/15/23 16:46
Last Documented Vital Signs
Temp Pulse Resp BP Pulse Ox
99.5 F 95 18 126/53 98
10/15/23 16:46 10/15/23 16:46 10/15/23 16:46 10/15/23 17:40 10/15/23 16:46
*Critical Care Note
Total Time (30-74mins, 75-104mins- exclusive of procedures): Not Applicable
ED Attending Note
-
Portions of this chart may have been created with voice recognition software.� Occasional wrong word or��sound alike� substitutions may have occurred due to the inherent limitations of voice recognition software.
Discharge Plan
Departure
Patient Disposition: Home (Routine Discharge)
Date of Disposition: 10/15/23
Time of Disposition: 22:23
Patient with high blood pressure during this ER visit?: Yes
Discharge Problem:
Headache
Prescriptions:
No Action
pramipexole 0.25 MG tablet
0.5 mg PO QPM
Patient Comments:
FOR RESTLESS LEGS
Rx Instructions:
MAY TAKE 0.75MG
spironolactone 25 MG tablet
50 mg PO DAILY
losartan 25 MG tablet
25 mg PO DAILY
ibuprofen [Advil] 200 MG tablet
200 mg PO PRN PRN (Reason: arthritis )
aspirin [Aspirin Childrens] 81 MG tablet,chewable
81 mg PO DAILY
nitroglycerin 0.4 MG tablet, sublingual
0.4 mg sublingual [id number] PRN (Reason: chest pain) Qty: 25 2RF
metformin 1,000 MG tablet
1,000 mg PO BID Qty: 0 0RF
simvastatin 40 mg Tablet
40 mg PO HS
furosemide [Lasix] 20 mg Tablet
20 mg PO DAILY PRN (Reason: ANKLE SWELLING)
repaglinide 2 mg Tablet
2 mg PO BID
Patient Comments:
BEFORE MEALS
cholecalciferol (vitamin D3) [Vitamin D3] 50 mcg (2,000 unit) Capsule
50 mcg PO DAILY
gabapentin 400 mg Tablet
400 mg PO DAILY
estradiol 0.01 % (0.1 mg/gram) Cream
1 g VAGINAL .TWICE PER WEEK
doxycycline hyclate 100 mg capsule
100 mg PO BID 10 Days Qty: 20 0RF
oxycodone 5 mg tablet
5 mg PO Q8H PRN (Reason: Pain) Qty: 10 0RF
azithromycin 250 mg tablet
250 mg PO DAILY 4 Days Qty: 4 0RF
ciprofloxacin HCl 500 mg tablet
500 mg PO BID Qty: 14 0RF
Referrals:
Fly,Mimi, DO [Family Provider] -
Activity Restrictions/Additional Instructions:
Your initial lactic acid level was slightly elevated but after fluids it was back to normal. This can sometimes be seen with metformin use. Other basic work is unremarkable. The urinalysis shows no sign of infection. Return here if worse.
Interventions
Interventions:
*Risk Screen - Suicide Last Done: 10/15/23 17:50
*General Assessment Last Done: 10/15/23 17:50
*Neglect/Abuse Screening Last Done: 10/15/23 17:50
*ED COVID-19 Vaccine History Last Done: 10/15/23 22:45
*Nursing Disposition Last Done: 10/15/23 22:45
ED- Neurological Assessment Last Done: 10/15/23 17:48
Discharge Date and Time
Discharge Date/Time: 10/15/23 22:45
Print Language: [id number]
[2023-10-15] MEDS: NSS 500 IV (18:54)
[2023-10-15 19:11] LABS: Lactic Acid 2.8 mmol/L (0.7-2.0)
[2023-10-15 20:19] LABS: Urine Albumin Negative (Neg - Trace); Urine Bilirubin Negative (Negative); Urine Character Clear (Clear); Urine Color Yellow; Urine Glucose Negative (Negative); Urine Ketone Trace (Negative); Urine Leukocyte Negative (Negative); Urine Nitrite Negative (Negative); Urine Occult Blood Negative (Negative); Urine Urobilinogen Negative (Neg - 1+)
[2023-10-15] MEDS: NSS 1000 IV (20:33)
[2023-10-15 22:22] LABS: Lactic Acid 1.7 mmol/L (0.7-2.0)
== END 2023-10-15 22:45 | disposition home or self-care (01) ==
LOC: EMR 16:35
PROVIDERS: EMERGENCY PHYSICIAN Emergency Medicine; FAMILY PHYSICIAN Internal Medicine
DX: R51.9 Headache, unspecified (principal); I25.10 Atherosclerotic heart disease of native coronary artery without angina pectoris; K21.9 Gastro-esophageal reflux disease without esophagitis; I10 Essential (primary) hypertension; E78.00 Pure hypercholesterolemia, unspecified; E11.9 Type 2 diabetes mellitus without complications; G25.81 Restless legs syndrome; Z87.891 Personal history of nicotine dependence; Z90.49 Acquired absence of other specified parts of digestive tract; Z95.5 Presence of coronary angioplasty implant and graft
CPT/HCPCS: 99283; 80053; 81003; 83605; 85025; 87040; 93005

== ENCOUNTER 2023-11-01 21:18 | Emergency (ER) | payer OTHER, SELFPAY ==
[2023-11-01 21:19] VITALS: BP 115/67
[2023-11-01 21:42] VITALS: BP 115/58
[2023-11-01 21:44] VITALS: BMI 25.3
[2023-11-01 21:46] LABS: % Basophils 0.6 % (0-2); % Eosinophils 1.5 % (0-6); % Immature Granulocytes 0.4 % (0-0.5); % Lymphocytes 21.6 % (20.5-51.1); % Monocytes 5.5 % (1.7-9.3); % Neutrophils 70.4 % (42.2-75.2); Absolute Basophils 0.1 10^3/uL (0-0.2); Absolute Eosinophils 0.2 10^3/uL (0-0.7); Absolute Lymphocytes 2.2 10^3/uL (1.2-3.4); Absolute Monocytes 0.6 10^3/uL (0.1-0.6); Absolute Neutrophils 7.1 10^3/uL (1.4-6.5); Hematocrit 40.5 % (37.0-47.0); Hemoglobin 14.2 g/dL (12.0-16.0); Mean Corp Hgb Conc. 35.1 g/dL (33.0-37.0); Mean Corpuscular Hgb 30.5 pg (27.0-31.0); Mean Corpuscular Volume 87.1 fL (81.0-99.0); Mean Platelet Volume 10.1 fL (7.4-10.4); Nucleated Red Blood Cells % 0 %; Platelet Count 268 10^3/uL (130-400); Red Blood Cell Count 4.65 10^6/uL (4.20-5.40); White Blood Cell Count 10.1 10^3/uL (4.8-10.8)
[2023-11-01 22:00] VITALS: BP 105/59
[2023-11-01 22:00] LABS: ALT (SGPT) 13 U/L (0-35); AST (SGOT) 21 U/L (14-36); Albumin 4.3 g/dl (3.5-5.0); Alkaline Phosphatase 115 U/L (38-126); Blood Urea Nitrogen 30 mg/dl (7-17); Calcium 9.7 mg/dl (8.4-10.2); Carbon Dioxide 34 mmol/L (22-30); Chloride 97 mmol/L (98-107); Estimated Creatinine Clearance 53 ml/min; Glucose 185 mg/dl (70-99); Potassium 3.9 mmol/L (3.5-5.1); Sodium 139 mmol/L (135-145); Total Bilirubin 0.5 mg/dl (0.2-1.3); Total Protein 6.9 g/dl (6.3-8.2); eGFR > 60.00
--- NOTE | 2023-11-01 22:15 | ED.GENMED ---
History of Present Illness
<Dhiraj Craven MD, Resident - Last Filed: 11/04/23 22:34>
General
Chief Complaint: Fainting Sensation
Time Seen by Provider: 11/01/23 21:34
History of Present Illness
History of Present Illness:
73-year-old female with history of hypertension, hyperlipidemia, CAD status post CABG , type 2 diabetes melitis, anxiety, depression presented to the ED with complaints of lightheadedness for the past 3 to 4 days she describes the lightheaded as a
feeling of passing out. Although she typically walks unassisted, she has needed to hold onto something to walk over the past few days. She admits symptoms are worse with standing from sitting position. She has also been feeling lethargic and
fatigued for the past 6 months. This morning, she has she was so lightheaded that she could not drive to her family doctor. While texting a friend of her symptoms in a car, she fell asleep for over an hour. Upon waking up and stepping out of the
car, she felt like passing out. She experienced the same feeling in the afternoon and slept for like 4 to 5 hours before deciding to come to the ED for further evaluation. She mentioned that sometimes she feels like she walks like a 'drunk lady'.
The patient denies headache ,room spinning ,double vision ,chest pain, and shortness of breath.
Past History
<Dhiraj Craven MD, Resident - Last Filed: 11/04/23 22:34>
Past History
ED Past Medical History: CAD, Cancer (basal cell), GERD, HTN, Hypercholesterolemia, NIDDM, PR, Psychiatric (Anxiety, Depression) and Other (Restless leg syndrome, josefina ramirez, PNA, Headache, )
ED Past Surgical History: Cardiac (Stents x 4), Cholecystectomy, Gynecological (Partial hysterectomy), Orthopedic (Foot surgery, Carpal tunnel, Knee surgery X 3), Tonsilectomy and Other (Basal cell removal, breast augmentation, Abd adhesions )
Social History
Tobacco: Former smoker
Alcohol: Occasional
Drug: None
Personal:
Living: alone
Employment: Employed
Family History
Family History: Other
Review of Systems
<Dhiraj Craven MD, Resident - Last Filed: 11/04/23 22:34>
Review of Systems
Neurological: Reports dizzy
Phy Exam
<Dhiraj Craven MD, Resident - Last Filed: 11/04/23 22:34>
General Physical Exam
General Presentation: well appearing and no apparent distress
Eye Exam
Eye Exam: PERRL and other (no horizontal nystagmus)
Cardiovascular Exam
Cardiovascular Exam: regular rate/rhythm
Pulmonary Exam
Pulmonary Exam: lungs clear, no rales, no crackles, no rhonchi and no wheezing
Gastrointestinal Exam
Gastrointestinal Exam: normal bowel sounds and tender (epigastrium and left lower quadrant, no guarding, no rigidity, no rebound tenderness)
Neurological Exam
Neurological Exam: alert and oriented x3
Psychiatric Exam
Psychiatric Exam: normal mood/affect
Course
<Dhiraj Craven MD, Resident - Last Filed: 11/04/23 22:34>
Orders/Labs/Results
Orders:
Orders
11/01/23 21:31
EKG [Electrocardiogram (*1)] Urgent
Reason for Study: Vertigo / Dizzy
EKG- Treatment ONCE
11/01/23 21:36
CBC/With Diff [Complete Blood Count/With Diff] Urgent
CMP [Comprehensive Metabolic Panel] Urgent
11/01/23 22:39
CT Head W/o Iv Contrast Urgent
Comment:
Reason For Exam: dizziness, history of meningioma
0.9% Sodium Chloride 500 ml [Nss] 500 ml IV BOLUS
Abnormal Lab Results
11/01/23
21:36
Absolute Neuts (auto) 7.1 H 10^3/uL
(1.4-6.5)
Chloride 97 L mmol/L
(98-107)
Carbon Dioxide 34 H mmol/L
(22-30)
BUN 30 H mg/dl
(7-17)
Glucose 185 H mg/dl
(70-99)
11/01/23 21:36
11/01/23 21:36
Vital Signs
Initial and Last Documented VS:
Initial Vital Signs
Temp Pulse Resp BP Pulse Ox
98.1 F 88 22 115/67 99
11/01/23 21:19 11/01/23 21:19 11/01/23 21:19 11/01/23 21:19 11/01/23 21:19
Last Documented Vital Signs
Temp Pulse Resp BP Pulse Ox
98.1 F 90 22 136/82 94
11/01/23 21:19 11/02/23 00:15 11/02/23 00:15 11/02/23 00:00 11/02/23 00:15
<Inocente Nathan, DO - Last Filed: 11/01/23 22:42>
Orders/Labs/Results
Orders:
Orders
11/01/23 21:31
EKG [Electrocardiogram (*1)] Urgent
Reason for Study: Vertigo / Dizzy
EKG- Treatment ONCE
11/01/23 21:36
CBC/With Diff [Complete Blood Count/With Diff] Urgent
CMP [Comprehensive Metabolic Panel] Urgent
11/01/23 22:39
CT Head W/o Iv Contrast Urgent
Comment:
Reason For Exam: dizziness, history of meningioma
0.9% Sodium Chloride 500 ml [Nss] 500 ml IV BOLUS
Abnormal Lab Results
11/01/23
21:36
Absolute Neuts (auto) 7.1 H 10^3/uL
(1.4-6.5)
Chloride 97 L mmol/L
(98-107)
Carbon Dioxide 34 H mmol/L
(22-30)
BUN 30 H mg/dl
(7-17)
Glucose 185 H mg/dl
(70-99)
11/01/23 21:36
11/01/23 21:36
Vital Signs
Initial and Last Documented VS:
Initial Vital Signs
Temp Pulse Resp BP Pulse Ox
98.1 F 88 22 115/67 99
11/01/23 21:19 11/01/23 21:19 11/01/23 21:19 11/01/23 21:19 11/01/23 21:19
Last Documented Vital Signs
Temp Pulse Resp BP Pulse Ox
98.1 F 90 22 136/82 94
11/01/23 21:19 11/02/23 00:15 11/02/23 00:15 11/02/23 00:00 11/02/23 00:15
<Dhiraj Craven MD, Resident - Last Filed: 11/04/23 22:34>
*Critical Care Note
Total Time (30-74mins, 75-104mins- exclusive of procedures): Not Applicable
<Dhiraj Craven MD, Resident - Last Filed: 11/04/23 22:34>
Update Note
Update Note:
73-year-old female presented to the ED with lightheadedness. Patient has a history of meningioma. MRI of the brain 06/29/2023 showed no acute intracranial abnormalities 8 to 10 mm lateral left frontal meningioma without secondary complication. EKG
shows normal sinus rhythm and laboratory evaluation reveals hyperglycemia. Head CT is to be ordered to rule out neurological conditions. IV fluids given for mild dehydration. These episodes of lightheadedness could be due to arrhythmia. We will
observe the patient for couple hours. If everything remains stable, the plan is for her to follow-up with her family doctor and a speeder operator to discuss placing a Holter monitor to monitor her heart rate.
ED Attending Note
<Dhiraj Craven MD, Resident - Last Filed: 11/04/23 22:34>
-
Portions of this chart may have been created with voice recognition software.� Occasional wrong word or��sound alike� substitutions may have occurred due to the inherent limitations of voice recognition software.
<Inocente Nathan DO - Last Filed: 11/01/23 22:42>
ED Attending Note
Patient seen and examined by attending physician: Yes
I performed a history and physical exam of patient and discussed management with resident, I reviewed resident's note and agree with documented findings and plan of care.: Yes
ED Attending Note:
I have seen and evaluated the patient with a [id number] encounter. I have spoken to the advance practicer provider and involved in the medical history, the physical exam, medical decision making.
Evaluation and management service: agree unless noted differently below.
Results interpretation: agree unless noted differently below.
Focused HPI: 73-year-old female presenting with lightheadedness. This has been ongoing for the past few days. It usually occurs in the morning when she gets out of bed. Patient was worried because it is happening at nighttime. Patient denies
chest pain, shortness of breath or headache. Patient denies palpitations
Physical exam: Sitting in bed comfortably. Negative Mateo-Hallpike. Normal finger-nose bilaterally. Heart regular rate and rhythm. Symptomatic when going from supine to seated
Medical Decision Making: We discussed likely orthostasis. Will give IV fluids. Given her risk factors and active smoker, will obtain CT head. After we had a long discussion about her symptoms, patient started to explain how much stress she is
under. We discussed that her stress could be a factor in all of her symptoms. Patient does agree and acknowledge. We also discussed different ways of smoking cessation. If patient feeling better after fluids and if CT head is negative, we
discussed talking to her PCP and speeder operator about a possible Holter monitor
Discharge Plan
Departure
Patient Disposition: Home (Routine Discharge)
Date of Disposition: 11/02/23
Time of Disposition: 00:21
Patient with high blood pressure during this ER visit?: Yes
Condition: Good
Discharge Problem:
Near syncope
Prescriptions:
No Action
pramipexole 0.25 MG tablet
0.5 mg PO QPM
Patient Comments:
FOR RESTLESS LEGS
Rx Instructions:
MAY TAKE 0.75MG
spironolactone 25 MG tablet
50 mg PO DAILY
losartan 25 MG tablet
25 mg PO DAILY
ibuprofen [Advil] 200 MG tablet
200 mg PO PRN PRN (Reason: arthritis )
aspirin [Aspirin Childrens] 81 MG tablet,chewable
81 mg PO DAILY
nitroglycerin 0.4 MG tablet, sublingual
0.4 mg sublingual [id number] PRN (Reason: chest pain) Qty: 25 2RF
metformin 1,000 MG tablet
1,000 mg PO BID Qty: 0 0RF
simvastatin 40 mg Tablet
40 mg PO HS
furosemide [Lasix] 20 mg Tablet
20 mg PO DAILY PRN (Reason: ANKLE SWELLING)
repaglinide 2 mg Tablet
2 mg PO BID
Patient Comments:
BEFORE MEALS
cholecalciferol (vitamin D3) [Vitamin D3] 50 mcg (2,000 unit) Capsule
50 mcg PO DAILY
gabapentin 400 mg Tablet
400 mg PO DAILY
estradiol 0.01 % (0.1 mg/gram) Cream
1 g VAGINAL .TWICE PER WEEK
doxycycline hyclate 100 mg capsule
100 mg PO BID 10 Days Qty: 20 0RF
oxycodone 5 mg tablet
5 mg PO Q8H PRN (Reason: Pain) Qty: 10 0RF
azithromycin 250 mg tablet
250 mg PO DAILY 4 Days Qty: 4 0RF
ciprofloxacin HCl 500 mg tablet
500 mg PO BID Qty: 14 0RF
Referrals:
Fly,Mimi, DO [Family Provider] - Follow up in 2-3 days
Saad Hunt DO [Active] - Follow up in 5-7 days
Activity Restrictions/Additional Instructions:
IF symptoms return of chest pain, dizziness, palpitations, SOB please return to ED as soon as possible.
Interventions
Interventions:
*Risk Screen - Suicide Last Done: 11/01/23 21:20
*General Assessment Last Done: 11/01/23 21:44
*Neglect/Abuse Screening Last Done: 11/01/23 21:20
ED- Fall Risk Assessment Last Done: 11/01/23 21:44
*Nursing Disposition Last Done: 11/02/23 00:36
ED- Neurological Assessment Last Done: 11/01/23 21:44
ED- Cardiac Assessment Last Done: 11/01/23 21:44
Discharge Date and Time
Discharge Date/Time: 11/02/23 00:39
Print Language: MACEDONIAN
[2023-11-01] MEDS: NSS 500 IV (22:47)
[2023-11-01 23:00] VITALS: BP 125/67
[2023-11-02] VITALS: BP 136/82
== END 2023-11-02 00:39 | disposition home or self-care (01) ==
LOC: EMR 21:18
PROVIDERS: EMERGENCY PHYSICIAN Student in an Organized Health Care Education/Training Program; FAMILY PHYSICIAN Internal Medicine
DX: R55 Syncope and collapse (principal); I10 Essential (primary) hypertension; E78.00 Pure hypercholesterolemia, unspecified; I25.10 Atherosclerotic heart disease of native coronary artery without angina pectoris; Z95.1 Presence of aortocoronary bypass graft; E11.9 Type 2 diabetes mellitus without complications; Z87.891 Personal history of nicotine dependence
CPT/HCPCS: 99284; 96360; 70450; 80053; 85025; 93005

== ENCOUNTER 2023-11-19 14:12 | Emergency (ER) | payer OTHER, SELFPAY ==
[2023-11-19 14:14] VITALS: BP 131/85
--- NOTE | 2023-11-19 15:15 | ED.MUSCINJ ---
HPI-Injury
General
Chief Complaint: Musculo-Skeletal Complaint
Source: patient
Exam Limitations: none
Time Seen by Provider: 11/19/23 15:14
Nursing documentation reviewed up to this point in time: agreed with
History of Present Illness-Injury
Initial Injury comments:
73-year-old female with history of HTN, HLD, SC, GERD, NIDDM, anxiety/depression presents with R shoulder pain that started last p.m.. No recollection of overuse or recent injury.
Patient injured right shoulder in a fall October 2022. She was evaluated at [facility] and followed up with Dr. Freire. 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 Freire. She cannot afford the surgery at this
time. The pain she has today is different than her typical pain from this injury. Her chronic pain is upper scapular area. This pain is over the humeral head. She took Ibuprofen 400 mg twice with no relief. Pain with any movement
Past History
Past History
ED Past Medical History: CAD, Cancer (basal cell), GERD, HTN, Hypercholesterolemia, NIDDM, SC, Psychiatric (Anxiety, Depression), Other (Restless leg syndrome, josefina ramirez, PNA, Headache, ) and Other (Right shoulder deformity from fall 2022,
followed by Dr. Freire)
ED Past Surgical History: Cardiac (Stents x 4), Cholecystectomy, Gynecological (Partial hysterectomy), Orthopedic (Foot surgery, Carpal tunnel, Knee surgery X 3), Tonsilectomy and Other (Basal cell removal, breast augmentation, Abd adhesions )
Social History
Tobacco: Former smoker
Alcohol: Occasional
Drug: None
Personal:
Living: alone
Employment: Employed
Family History
Family History: Other
Review of Systems
Review of Systems
Allergies reviewed?: Yes
All Other Systems: ROS reviewed and negative except as documented in HPI and ROS
Constitutional: Denies fever
Musculoskeletal: Reports other (right shoulder pain. Chronic deformity distal clavical from previous fall.)
Skin: Reports no symptoms
Neurological: Denies weakness or numbness
Phy Exam
Physical Exam
Physical Exam:
GENERAL: No acute distress. A&Ox3.
CONSTITUTIONAL: Afebrile.
RESPIRATORY: Regular respirations, nonlabored, lungs clear.
CARDIOVASCULAR: Regular rate and rhythm, no murmurs, no rubs.
MUSCULOSKELETAL: Very tender over humeral head anterior and laterally, No notable swelling. Significant limited ROM. Distal n/v intact. Well perfused.
SKIN: Warm, dry, pink
PSYCH: Normal mood and affect. Well kept, interactive and appropriate
NEUROLOGIC: Awake, alert and oriented. No focal neurological deficits. Hand grasps equal 5/5.
Injury Course
Orders/Labs/Results
Orders:
Orders
11/19/23 14:19
CR Shoulder - Right Min 2 View Urgent
Comment:
Reason For Exam: pain
11/19/23 15:34
Bedside Glucose- Treatment ONCE
11/19/23 16:06
Ketorolac [Toradol] 30 mg IM NOW STA
Abnormal Lab Results
11/19/23
15:35
POC Glucose 171 H mg/dl
(70-99)
MDM/Problems Addressed
Differential Diagnosis Includes:
bursitis, calcific bursitis, sprain
MDM/Problems Addressed:
73-year-old female with history of HTN, HLD, SC, GERD, NIDDM, anxiety/depression presents with R shoulder pain that started last p.m.. No recollection of overuse or recent injury.
Patient injured right shoulder in a fall October 2022. She was evaluated at [facility] and followed up with Dr. Freire. 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 Freire. She cannot afford the surgery at this
time. The pain she has today is different than her typical pain from this injury. Her chronic pain is upper scapular area. This pain is over the humeral head. She took Ibuprofen 400 mg twice with no relief. Pain with any movement
X-ray right shoulder initially read by this examiner: Mild DJD, nothing acute
Sent a prescription for diclofenac gel to patient's pharmacy, she received a message on her phone that her insurance does not cover it. She states she has no money so that prescription was canceled
She states she was here once before and someone gave her something for pain that was nonnarcotic started with the T and it worked well. Assuming it is Toradol we will give her a dose of IM Toradol right now and send a prescription to her pharmacy
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 Pt offered sling but states she has a sling at home she will lose. Stressed importance of follow up w Dr. Freire.
She was very appreciative of the care.
*Critical Care Note
Total Time (30-74mins, 75-104mins- exclusive of procedures): Not Applicable
ED Attending Note
-
Portions of this chart may have been created with voice recognition software.� Occasional wrong word or��sound alike� substitutions may have occurred due to the inherent limitations of voice recognition software.
Discharge Plan
Departure
Patient Disposition: Home (Routine Discharge)
Date of Disposition: 11/19/23
Time of Disposition: 15:59
Patient with high blood pressure during this ER visit?: No
Condition: Good
Discharge Problem:
Acute pain of right shoulder, Acute bursitis of right shoulder
Instructions: Ketorolac (Systemic), Shoulder Bursitis (DC)
Prescriptions:
New
ketorolac 10 mg tablet
10 mg PO Q8H PRN (Reason: Pain) Qty: 20 0RF
Rx Instructions:
maximum total duration of 5 days from all oral, intranasal, or parenteral formulations
No Action
pramipexole 0.25 MG tablet
0.5 mg PO QPM
Patient Comments:
FOR RESTLESS LEGS
Rx Instructions:
MAY TAKE 0.75MG
spironolactone 25 MG tablet
50 mg PO DAILY
losartan 25 MG tablet
25 mg PO DAILY
ibuprofen [Advil] 200 MG tablet
200 mg PO PRN PRN (Reason: arthritis )
aspirin [Aspirin Childrens] 81 MG tablet,chewable
81 mg PO DAILY
nitroglycerin 0.4 MG tablet, sublingual
0.4 mg sublingual [id number] PRN (Reason: chest pain) Qty: 25 2RF
metformin 1,000 MG tablet
1,000 mg PO BID Qty: 0 0RF
simvastatin 40 mg Tablet
40 mg PO HS
furosemide [Lasix] 20 mg Tablet
20 mg PO DAILY PRN (Reason: ANKLE SWELLING)
repaglinide 2 mg Tablet
2 mg PO BID
Patient Comments:
BEFORE MEALS
cholecalciferol (vitamin D3) [Vitamin D3] 50 mcg (2,000 unit) Capsule
50 mcg PO DAILY
gabapentin 400 mg Tablet
400 mg PO DAILY
estradiol 0.01 % (0.1 mg/gram) Cream
1 g VAGINAL .TWICE PER WEEK
doxycycline hyclate 100 mg capsule
100 mg PO BID 10 Days Qty: 20 0RF
oxycodone 5 mg tablet
5 mg PO Q8H PRN (Reason: Pain) Qty: 10 0RF
azithromycin 250 mg tablet
250 mg PO DAILY 4 Days Qty: 4 0RF
ciprofloxacin HCl 500 mg tablet
500 mg PO BID Qty: 14 0RF
Referrals:
Mimi Keller DO [Family Provider] -
Kehinde Freire MD [Active] - Next open appointment
Activity Restrictions/Additional Instructions:
As we discussed, I sent a prescription to your pharmacy for Toradol 10 mg to to take every 8 hours as needed for pain. Do not use it for more than one week.
Call Dr. Freire's office Tuesday a.m. for next available appointment as he MAY recommend an injection for pain
Your blood sugar is 171 so we cannot use steroids at this time.
Heating pad may help.
Interventions
Interventions:
*Risk Screen - Suicide Last Done: 11/19/23 14:14
*General Assessment Last Done: 11/19/23 14:14
*Neglect/Abuse Screening Last Done: 11/19/23 14:14
ED- Fall Risk Assessment Last Done: 11/19/23 16:36
*ED COVID-19 Vaccine History Last Done: 11/19/23 14:14
*Nursing Disposition Last Done: 11/19/23 16:36
ED-Musculoskeletal Assessment Last Done: 11/19/23 16:00
Discharge Date and Time
Discharge Date/Time: 11/19/23 16:37
Print Language: RUSSIAN
[2023-11-19 15:38] LABS: Glucose - Point of Care 171 mg/dl (70-99)
[2023-11-19] MEDS: TORADOL 30 MG IM (16:11)
== END 2023-11-19 16:37 | disposition home or self-care (01) ==
LOC: EMR 14:12
PROVIDERS: EMERGENCY PHYSICIAN Student in an Organized Health Care Education/Training Program; FAMILY PHYSICIAN Internal Medicine
DX: M75.51 Bursitis of right shoulder (principal); M25.511 Pain in right shoulder; Z87.891 Personal history of nicotine dependence; I10 Essential (primary) hypertension; E78.00 Pure hypercholesterolemia, unspecified; K21.9 Gastro-esophageal reflux disease without esophagitis; E11.9 Type 2 diabetes mellitus without complications; F41.9 Anxiety disorder, unspecified; F32.A Depression, unspecified
CPT/HCPCS: 99284; 96372; 73030; 82962

== ENCOUNTER 2023-11-26 22:01 | Emergency (ER) | payer OTHER, SELFPAY ==
[2023-11-26 22:05] VITALS: BP 130/98
[2023-11-27 00:55] VITALS: BP 145/66; BMI 25.4
--- NOTE | 2023-11-27 01:27 | ED.GENMED ---
History of Present Illness
General
Chief Complaint: Anxiety
Source: patient
Exam Limitations: none
Time Seen by Provider: 11/27/23 01:01
Nursing documentation reviewed up to this point in time: agreed with
History of Present Illness
History of Present Illness:
73-year-old female presents with anxiety. She states that for the last few years she has been increasingly anxious. She states that she is selling her home of 38 years due to inability to afford it. This has been going on for some time. She has
seen her family doctor and had a prescription for Ativan. She states that she lost the prescription before getting it filled. She denies suicidal or homicidal ideation, intent, or plan. She was seen by crisis who cleared her.
Past History
Past History
ED Past Medical History: CAD, Cancer (basal cell), GERD, HTN, Hypercholesterolemia, NIDDM, CA, Psychiatric (Anxiety, Depression), Other (Restless leg syndrome, josefina ramirez, PNA, Headache, ) and Other (Right shoulder deformity from fall 2022,
followed by Dr. Freire)
ED Past Surgical History: Cardiac (Stents x 4), Cholecystectomy, Gynecological (Partial hysterectomy), Orthopedic (Foot surgery, Carpal tunnel, Knee surgery X 3), Tonsilectomy and Other (Basal cell removal, breast augmentation, Abd adhesions )
Social History
Tobacco: Former smoker
Alcohol: Occasional
Drug: None
Personal:
Living: alone
Employment: Employed
Family History
Family History: Other
Review of Systems
Review of Systems
Allergies reviewed?: Yes
Other source history: family
All Other Systems: ROS reviewed and negative except as documented in HPI and ROS
Constitutional: Reports no symptoms; Denies fever or fatigue
EENT: Reports no symptoms
Respiratory: Reports no symptoms
Cardiac: Reports no symptoms
ABD/GI: Reports no symptoms
: Reports no symptoms
Musculoskeletal: Reports no symptoms
Skin: Reports no symptoms
Neurological: Reports no symptoms
Endocrine: Reports no symptoms
Hematologic/Lymphatic: Reports no symptoms
Psychiatric: Reports depression and anxiety; Denies suicidal or hallucinations
Phy Exam
General Physical Exam
General Presentation: well appearing and no apparent distress
General Skin: warm and dry
General Habitus: normal
General Mental: alert
General Hydration: appears well hydrated
ENT Exam
ENT Exam: EOMI, pharynx normal, neck supple and normocephalic
Eye Exam
Eye Exam: PERRL, cornea clear and conjunctiva normal
Cardiovascular Exam
Cardiovascular Exam: regular rate/rhythm, no edema, no murmur and normal peripheral pulses
Pulmonary Exam
Pulmonary Exam: lungs clear, no respiratory distress, no rales, no crackles, no rhonchi, no stridor, no wheezing and no cough
Gastrointestinal Exam
Gastrointestinal Exam: normal bowel sounds, non tender, soft, no organomegaly, no pulsatile mass and non distended
Neurological Exam
Neurological Exam: alert, oriented x3, no motor deficits and speech normal
Musculoskeletal Exam
Musculoskeletal Exam: full ROM and no edema
Skin Exam
Skin Exam: normal color, warm/dry, no rash and no petechia
Psychiatric Exam
Psychiatric Exam: anxious and depressed
Course
Vital Signs
Initial and Last Documented VS:
Initial Vital Signs
Temp Pulse Resp BP Pulse Ox
98.2 F 80 22 130/98 100
11/26/23 22:05 11/26/23 22:05 11/26/23 22:05 11/26/23 22:05 11/26/23 22:05
Last Documented Vital Signs
Temp Pulse Resp BP Pulse Ox
98.2 F 65 18 145/66 94
11/26/23 22:05 11/27/23 00:55 11/27/23 00:55 11/27/23 00:55 11/27/23 00:55
*Critical Care Note
Total Time (30-74mins, 75-104mins- exclusive of procedures): Not Applicable
Update Note
Update Note:
Patient requested prescription for Ativan. I feel that this is reasonable at this time. She has true anxiety and does have good follow-up with her family doctor. She will get a prescription for an angiolytic from him. Patient denies suicidal
homicidal ideation, intent, or plan.
ED Attending Note
-
Portions of this chart may have been created with voice recognition software.� Occasional wrong word or��sound alike� substitutions may have occurred due to the inherent limitations of voice recognition software.
Discharge Plan
Departure
Patient Disposition: Home (Routine Discharge)
Date of Disposition: 11/27/23
Time of Disposition: 01:44
Patient with high blood pressure during this ER visit?: Yes
Condition: Good
Discharge Problem:
Anxiety
Instructions: Depression, Adult (DC), Anxiety, Adult (DC), BLOOD PRESSURE
Prescriptions:
New
lorazepam [Ativan] 0.5 mg tablet
0.5 mg PO BID PRN (Reason: anxiety) Qty: 10 0RF
No Action
pramipexole 0.25 MG tablet
0.5 mg PO QPM
Patient Comments:
FOR RESTLESS LEGS
Rx Instructions:
MAY TAKE 0.75MG
spironolactone 25 MG tablet
50 mg PO DAILY
losartan 25 MG tablet
25 mg PO DAILY
ibuprofen [Advil] 200 MG tablet
200 mg PO PRN PRN (Reason: arthritis )
aspirin [Aspirin Childrens] 81 MG tablet,chewable
81 mg PO DAILY
nitroglycerin 0.4 MG tablet, sublingual
0.4 mg sublingual [id number] PRN (Reason: chest pain) Qty: 25 2RF
metformin 1,000 MG tablet
1,000 mg PO BID Qty: 0 0RF
simvastatin 40 mg Tablet
40 mg PO HS
furosemide [Lasix] 20 mg Tablet
20 mg PO DAILY PRN (Reason: ANKLE SWELLING)
repaglinide 2 mg Tablet
2 mg PO BID
Patient Comments:
BEFORE MEALS
cholecalciferol (vitamin D3) [Vitamin D3] 50 mcg (2,000 unit) Capsule
50 mcg PO DAILY
gabapentin 400 mg Tablet
400 mg PO DAILY
estradiol 0.01 % (0.1 mg/gram) Cream
1 g VAGINAL .TWICE PER WEEK
doxycycline hyclate 100 mg capsule
100 mg PO BID 10 Days Qty: 20 0RF
oxycodone 5 mg tablet
5 mg PO Q8H PRN (Reason: Pain) Qty: 10 0RF
azithromycin 250 mg tablet
250 mg PO DAILY 4 Days Qty: 4 0RF
ciprofloxacin HCl 500 mg tablet
500 mg PO BID Qty: 14 0RF
ketorolac 10 mg tablet
10 mg PO Q8H PRN (Reason: Pain) Qty: 20 0RF
Rx Instructions:
maximum total duration of 5 days from all oral, intranasal, or parenteral formulations
Referrals:
Mimi Keller DO [Family Provider] -
Liu Calderon [Active] -
Activity Restrictions/Additional Instructions:
It was a pleasure meeting you and taking part in your care. We hope for your continued healing and wellness.
Please read discharge instructions in their entirety. However, they are for general education and may not describe your exact diagnosis at discharge. Information on your ER visit and medical conditions were discussed with you along with appropriate
follow up information...
If indicated, please take your medications as instructed and indicated on discharge paperwork.
Please schedule a follow up appointment as directed. Call to schedule an appointment
Please return to the emergency department with ANY change in, persisting, or worsening of symptoms. If any of your symptoms do not improve, or persist, or become more severe within 6-12 hours, please return to the emergency department for further
care.
Please return to the emergency department if you develop a headache, neck pain/stiffness, fever greater than 100.4F, chest pain, shortness of breath, persistent nausea, vomiting, slurred speech, difficulty walking, numbness/tingling, weakness, signs
of infection or any other symptoms that are worrisome to you.
If you have any questions or concerns please do not hesitate to call the Hospital at or E-mail me directly at [email or web address]
Interventions
Interventions:
*Risk Screen - Suicide Last Done: 11/26/23 22:05
*General Assessment Last Done: 11/27/23 01:00
*Neglect/Abuse Screening Last Done: 11/26/23 22:05
ED- Fall Risk Assessment Last Done: 11/27/23 01:01
*ED COVID-19 Vaccine History Last Done: 11/27/23 01:00
*Nursing Disposition Last Done: 11/27/23 01:30
ED-Psychological Assessment Last Done: 11/27/23 01:01
Discharge Date and Time
Print Language: ETHIOPIAN
== END 2023-11-27 01:45 | disposition home or self-care (01) ==
LOC: EMR 22:01
PROVIDERS: EMERGENCY PHYSICIAN Student in an Organized Health Care Education/Training Program; FAMILY PHYSICIAN Internal Medicine
DX: F41.9 Anxiety disorder, unspecified (principal); F32.A Depression, unspecified; I10 Essential (primary) hypertension; E11.9 Type 2 diabetes mellitus without complications; E78.00 Pure hypercholesterolemia, unspecified; I25.10 Atherosclerotic heart disease of native coronary artery without angina pectoris; G25.81 Restless legs syndrome; K21.9 Gastro-esophageal reflux disease without esophagitis; Z79.84 Long term (current) use of oral hypoglycemic drugs; Z85.828 Personal history of other malignant neoplasm of skin; Z87.891 Personal history of nicotine dependence; Z95.5 Presence of coronary angioplasty implant and graft; Z90.49 Acquired absence of other specified parts of digestive tract; Z88.5 Allergy status to narcotic agent; Z88.8 Allergy status to other drugs, medicaments and biological substances; Z88.6 Allergy status to analgesic agent; Z91.041 Radiographic dye allergy status
CPT/HCPCS: 99283

== ENCOUNTER 2024-02-16 01:03 | Emergency (ER) | payer OTHER, SELFPAY ==
[2024-02-16 01:11] VITALS: BP 140/75
[2024-02-16 02:28] VITALS: BMI 38.8
--- NOTE | 2024-02-16 02:35 | ED.GENMED ---
History of Present Illness
General
Chief Complaint: Chest Pain
Source: patient and previous hospital records (Previous ED visits, November with complaints of anxiety, earlier November bursitis of the shoulder, October for episode of near syncope, September and episode of headache, February 2023 episode of chest pain.
Reportedly unremarkable negative stress test just prior to that ED visit.)
Exam Limitations: none
Time Seen by Provider: 02/16/24 02:23
Nursing documentation reviewed up to this point in time: agreed with
History of Present Illness
History of Present Illness:
This is a 73-year-old woman who has history of hypertension, hyperlipidemia, CAD with reported ID [id number] with stents x 4 at that time. She has history of GERD, [id number] diabetes as well as anxiety.
She follows with Dr. Ritter, cardiology at [place].
She states she is in the process of relocating, as such has been packing and tonight while in a storage unit, looking through boxes she developed substernal chest pressure around 11:30 PM. Chest pressure was mild to moderate in nature,
nonradiating, associated with mild shortness of breath, mild nausea but no diaphoresis, no palpitations, no dizziness nor lightheadedness. Chest pressure felt quite different from discomfort she felt with ID in 2018 at that time had severe pressure
to her back, left shoulder.
She does continue to smoke cigarettes but has been cutting down, currently at 10 cigarettes/day.
She denies heavy lifting nor injury. She has not had a cough, no fever no chills, no leg pain or swelling.
Currently chest pain-free. She did not take anything for discomfort.
Past History
Past History
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
followed by Dr. Freire)
ED Past Surgical History: Cardiac (Stents x 4 2018), Cholecystectomy, Gynecological (Partial hysterectomy), Orthopedic (Foot surgery, Carpal tunnel, Knee surgery X 3), Tonsilectomy and Other (Basal cell removal, breast augmentation, Abd adhesions )
Social History
Tobacco: Smoker
Alcohol: Occasional
Drug: None
Personal:
Living: alone
Employment: Employed
Family History
Family History: Other (Noncontributory)
Phy Exam
Physical Exam
Physical Exam:
GENERAL: 73-year-old woman appears her stated age, sleeping upon initially entering exam room. Awakens easily and once awake she is bright and alert, pleasant, appears in no acute distress.
EYE: anicteric
NECK: Supple, nontender, no meningismus, no significant adenopathy.
ENT: oral mucosa is moist. No rhinorrhea.
CARDIAC: Regular rate and rhythm. no murmur. No chest wall tenderness.
LUNGS: Clear breath sounds bilaterally, no acute respiratory distress, no wheezes/rales/rhonchi
ABDOMEN: Soft, nondistended, without focal tenderness, no r/g, normoactive BS.
NEUROLOGICAL: Alert and oriented x3, no focal neuro deficits.
SKIN: Warm and dry, normal color, skin intact. No rash.
MUSCULOSKELETAL: No C/C/E. peripheral pulses are full and equal b/l. No palpable tenderness.
PSYCH: Normal and appropriate interaction.
Scores
Heart Score for Chest Pain Patients
STEMI patient?: No
History: Slightly or Non-Suspicious
ECG: Normal
Age: >/= 65 years
Risk Factors: >/= 3 Risk Factors or History of CAD
Troponin: </= Normal Limit
Heart Score for Chest Pain Patients: 4
Heart Score Risk: 20.3% MACE over next 6 weeks
Course
Orders/Labs/Results
Orders:
Orders
02/16/24 01:04
Electrocardiogram (*1) Urgent
Reason for Study: Chest Pain
EKG- Treatment ONCE
02/16/24 02:44
Complete Blood Count/With Diff Urgent
Comprehensive Metabolic Panel Urgent
Lipase Urgent
PTT Urgent
Troponin I Urgent
02/16/24 04:27
Mag Hydrox/Al Hydrox/Simeth [Maalox] 30 ml Phenobarb/Hyoscy/Atropine/Scop [] 10 ml Viscous Lidocaine 2% [Xylocaine Viscous Cup] 10 ml PO NOW
Pantoprazole [Protonix IV] 40 mg IV NOW STA
Abnormal Lab Results
02/16/24
02:44
RBC 4.17 L 10^6/uL
(4.20-5.40)
Hct 36.2 L %
(37.0-47.0)
Chloride 108 H mmol/L
(98-107)
Creatinine 0.5 L mg/dL
(0.6-1.0)
Glucose 147 H mg/dl
(70-99)
Calcium 8.0 L mg/dl
(8.4-10.2)
Total Protein 5.7 L g/dl
(6.3-8.2)
Albumin 3.4 L g/dl
(3.5-5.0)
02/16/24 02:44
02/16/24 02:44
Vital Signs
Initial and Last Documented VS:
Initial Vital Signs
Temp Pulse Resp BP Pulse Ox
97.9 F 74 18 140/75 99
02/16/24 01:11 02/16/24 01:11 02/16/24 01:11 02/16/24 01:11 02/16/24 01:11
Last Documented Vital Signs
Temp Pulse Resp BP Pulse Ox
97.9 F 77 15 143/75 95
02/16/24 01:11 02/16/24 04:00 02/16/24 04:00 02/16/24 03:00 02/16/24 03:45
MDM/Problems Addressed
Differential Diagnosis Includes:
Concern for ACS, GERD, musculoskeletal chest wall pain. PE/dissection are unlikely.
EKG overall unremarkable and unchanged from previous October 2023.
Will check labs including troponin.
Chronic conditions affecting care: DM, HTN, CAD and Other (History of GERD)
Acute Exacerbation and/or Progression of Chronic Illness: Other (I suspect exacerbation of GERD)
*Pulse Oximetry
Patient hypoxic: no
*EKG
Interpreted by ED Provider?: Yes
Interpretation: normal
Comparison EKG: no changes (Unchanged from previous October 2023)
Rate: normal
Rhythm: sinus
Bradley: normal axis
Interval: normal interval
QRS Pattern: normal QRS
Ischemia: no ischemia
*Sharepoint Web Developer Interpretation
Rate: normal
Interpretation: normal
Rhythm: sinus
*Critical Care Note
Total Time (30-74mins, 75-104mins- exclusive of procedures): Not Applicable
Update Note
Update Note:
02/16/2024 0430 AM
Patient remains chest pain-free. Sleeps when undisturbed.
Labs are unremarkable save for mild hypocalcemia. Troponin is negative.
I suspect an element of GERD.
Will give an IV dose of Protonix.
Plan is for discharge to home with recommendations for prompt follow-up with her primary administrative law judge, Dr. Anne in [place] for recheck.
Return precautions discussed.
ED Attending Note
-
Portions of this chart may have been created with voice recognition software.� Occasional wrong word or��sound alike� substitutions may have occurred due to the inherent limitations of voice recognition software.
Discharge Plan
Departure
Patient Disposition: Home (Routine Discharge)
Date of Disposition: 02/16/24
Time of Disposition: 04:32
Patient with high blood pressure during this ER visit?: No
Condition: Good
Discharge Problem:
Nonspecific chest pain
Instructions: Acid Reflux and GERD in Adults (DC), Chest Pain NON-DHP Retail Field Representative Follow Up
Prescriptions:
No Action
pramipexole 0.25 MG tablet
0.5 mg PO QPM
Patient Comments:
FOR RESTLESS LEGS
Rx Instructions:
MAY TAKE 0.75MG
spironolactone 25 MG tablet
50 mg PO DAILY
losartan 25 MG tablet
25 mg PO DAILY
ibuprofen [Advil] 200 MG tablet
200 mg PO PRN PRN (Reason: arthritis )
aspirin [Aspirin Childrens] 81 MG tablet,chewable
81 mg PO DAILY
nitroglycerin 0.4 MG tablet, sublingual
0.4 mg sublingual [id number] PRN (Reason: chest pain) Qty: 25 2RF
metformin 1,000 MG tablet
1,000 mg PO BID Qty: 0 0RF
simvastatin 40 mg Tablet
40 mg PO HS
furosemide [Lasix] 20 mg Tablet
20 mg PO DAILY PRN (Reason: ANKLE SWELLING)
repaglinide 2 mg Tablet
2 mg PO BID
Patient Comments:
BEFORE MEALS
cholecalciferol (vitamin D3) [Vitamin D3] 50 mcg (2,000 unit) Capsule
50 mcg PO DAILY
gabapentin 400 mg Tablet
400 mg PO DAILY
estradiol 0.01 % (0.1 mg/gram) Cream
1 g VAGINAL .TWICE PER WEEK
doxycycline hyclate 100 mg capsule
100 mg PO BID 10 Days Qty: 20 0RF
oxycodone 5 mg tablet
5 mg PO Q8H PRN (Reason: Pain) Qty: 10 0RF
azithromycin 250 mg tablet
250 mg PO DAILY 4 Days Qty: 4 0RF
ciprofloxacin HCl 500 mg tablet
500 mg PO BID Qty: 14 0RF
ketorolac 10 mg tablet
10 mg PO Q8H PRN (Reason: Pain) Qty: 20 0RF
Rx Instructions:
maximum total duration of 5 days from all oral, intranasal, or parenteral formulations
lorazepam [Ativan] 0.5 mg tablet
0.5 mg PO BID PRN (Reason: anxiety) Qty: 10 0RF
Referrals:
Fly,Mimi, DO [Family Provider] -
Interventions
Interventions:
*Risk Screen - Suicide Last Done: 02/16/24 01:11
*General Assessment Last Done: 02/16/24 01:11
*Neglect/Abuse Screening Last Done: 02/16/24 01:11
ED- Fall Risk Assessment Last Done: 02/16/24 02:28
*ED COVID-19 Vaccine History Last Done: 02/16/24 02:28
ED- Cardiac Assessment Last Done: 02/16/24 02:28
Discharge Date and Time
Print Language: CENTRAL AFRICAN
[2024-02-16 02:43] VITALS: BP 150/73
[2024-02-16 03:00] VITALS: BP 143/75
[2024-02-16 03:08] LABS: % Basophils 0.6 % (0-2); % Eosinophils 2.5 % (0-6); % Immature Granulocytes 0.4 % (0-0.5); % Lymphocytes 25.3 % (20.5-51.1); % Monocytes 6.4 % (1.7-9.3); % Neutrophils 64.8 % (42.2-75.2); Absolute Basophils 0.1 10^3/uL (0-0.2); Absolute Eosinophils 0.2 10^3/uL (0-0.7); Absolute Lymphocytes 2.1 10^3/uL (1.2-3.4); Absolute Monocytes 0.5 10^3/uL (0.1-0.6); Absolute Neutrophils 5.3 10^3/uL (1.4-6.5); Hematocrit 36.2 % (37.0-47.0); Hemoglobin 12.9 g/dL (12.0-16.0); Mean Corp Hgb Conc. 35.6 g/dL (33.0-37.0); Mean Corpuscular Hgb 30.9 pg (27.0-31.0); Mean Corpuscular Volume 86.8 fL (81.0-99.0); Mean Platelet Volume 10.3 fL (7.4-10.4); Nucleated Red Blood Cells % 0 %; Platelet Count 247 10^3/uL (130-400); Red Blood Cell Count 4.17 10^6/uL (4.20-5.40); Red Cell Dist. Width 12.7 % (11.5-14.5); White Blood Cell Count 8.1 10^3/uL (4.8-10.8)
[2024-02-16 03:14] LABS: APTT 30.2 Sec (23.4-35.0)
[2024-02-16 03:26] LABS: ALT (SGPT) 13 U/L (0-35); AST (SGOT) 16 U/L (14-36); Albumin 3.4 g/dl (3.5-5.0); Alkaline Phosphatase 112 U/L (38-126); Blood Urea Nitrogen 14 mg/dl (7-17); Carbon Dioxide 22 mmol/L (22-30); Chloride 108 mmol/L (98-107); Estimated Creatinine Clearance 68 ml/min; Glucose 147 mg/dl (70-99); Lipase 247 U/L (23-300); Potassium 3.8 mmol/L (3.5-5.1); Sodium 140 mmol/L (135-145); Total Bilirubin 0.3 mg/dl (0.2-1.3); Total Protein 5.7 g/dl (6.3-8.2); eGFR > 60.00
[2024-02-16 03:29] LABS: Troponin I < 0.012 ng/ml
[2024-02-16 04:00] VITALS: BP 136/75
[2024-02-16] MEDS: PROTONIX IV 40 MG IV (04:46)
== END 2024-02-16 04:52 | disposition home or self-care (01) ==
LOC: EMR 01:03
PROVIDERS: EMERGENCY PHYSICIAN Emergency Medicine; FAMILY PHYSICIAN Internal Medicine
DX: R07.89 Other chest pain (principal); I10 Essential (primary) hypertension; E78.00 Pure hypercholesterolemia, unspecified; I25.10 Atherosclerotic heart disease of native coronary artery without angina pectoris; E11.9 Type 2 diabetes mellitus without complications; F41.9 Anxiety disorder, unspecified; G25.81 Restless legs syndrome; I25.2 Old myocardial infarction; K21.9 Gastro-esophageal reflux disease without esophagitis; Z90.49 Acquired absence of other specified parts of digestive tract; Z95.5 Presence of coronary angioplasty implant and graft; F17.210 Nicotine dependence, cigarettes, uncomplicated
CPT/HCPCS: 99283; 96374; 80053; 83690; 84484; 85025; 85730; 93005

== ENCOUNTER 2024-04-13 22:23 | Emergency (ER) | payer OTHER, SELFPAY ==
[2024-04-13 22:23] VITALS: BMI 26.4
[2024-04-13 22:39] VITALS: BP 127/64
[2024-04-13 23:00] LABS: % Basophils 0.9 % (0-2); % Eosinophils 1.8 % (0-6); % Immature Granulocytes 0.5 % (0-0.5); % Lymphocytes 25.8 % (20.5-51.1); % Monocytes 7.1 % (1.7-9.3); % Neutrophils 63.9 % (42.2-75.2); Absolute Basophils 0.1 10^3/uL (0-0.2); Absolute Eosinophils 0.2 10^3/uL (0-0.7); Absolute Lymphocytes 2.2 10^3/uL (1.2-3.4); Absolute Monocytes 0.6 10^3/uL (0.1-0.6); Absolute Neutrophils 5.5 10^3/uL (1.4-6.5); Hematocrit 39.1 % (37.0-47.0); Hemoglobin 13.5 g/dL (12.0-16.0); Mean Corp Hgb Conc. 34.5 g/dL (33.0-37.0); Mean Corpuscular Hgb 30.1 pg (27.0-31.0); Mean Corpuscular Volume 87.3 fL (81.0-99.0); Mean Platelet Volume 9.8 fL (7.4-10.4); Nucleated Red Blood Cells % 0 %; Platelet Count 247 10^3/uL (130-400); Red Blood Cell Count 4.48 10^6/uL (4.20-5.40); Red Cell Dist. Width 12.3 % (11.5-14.5); Urine Albumin Negative (Neg - Trace); Urine Bilirubin Negative (Negative); Urine Character Clear (Clear); Urine Color Straw; Urine Glucose Negative (Negative); Urine Ketone Negative (Negative); Urine Leukocyte Trace (Negative); Urine Nitrite Negative (Negative); Urine Occult Blood Negative (Negative); Urine Urobilinogen Negative (Neg - 1+); White Blood Cell Count 8.6 10^3/uL (4.8-10.8)
[2024-04-13 23:08] LABS: Urine Red Blood Cell 0-2 /HPF (0-2); Urine Squamous Cell 0-2 /LPF (Few)
[2024-04-13 23:20] LABS: ALT (SGPT) 13 U/L (0-35); AST (SGOT) 18 U/L (14-36); Alkaline Phosphatase 115 U/L (38-126); Blood Urea Nitrogen 18 mg/dl (7-17); Calcium 9.3 mg/dl (8.4-10.2); Carbon Dioxide 36 mmol/L (22-30); Chloride 96 mmol/L (98-107); Glucose 232 mg/dl (70-99); Lipase 408 U/L (23-300); Potassium 4.3 mmol/L (3.5-5.1); Sodium 136 mmol/L (135-145); Total Bilirubin 0.4 mg/dl (0.2-1.3); Total Protein 6.6 g/dl (6.3-8.2); eGFR > 60.00
[2024-04-14 05:42] VITALS: BP 118/64
[2024-04-14] MEDS: TORADOL 15 MG IM (05:46)
[2024-04-14 07:00] VITALS: BP 94/63
--- NOTE | 2024-04-14 07:14 | ED.GENMED ---
History of Present Illness
General
Chief Complaint: Abdominal Pain
Time Seen by Provider: 04/14/24 05:24
History of Present Illness
History of Present Illness:
73-year-old female with history of high blood pressure, diabetes, homelessness presenting for abdominal pain. Patient reports symptoms started yesterday on the right side with radiation to her back. Denies any nausea or vomiting. Denies any
changes in her stool. Denies any fever. Denies chest pain or difficulty breathing. Reports history of appendectomy and cholecystectomy in the past. Denies any issues with urination. She has not tried any medications for pain. Denies injury or
trauma. Denies additional acute medical
Past History
Past History
ED Past Medical History: CAD, Cancer (basal cell), GERD, HTN, Hypercholesterolemia, NIDDM, CA, Psychiatric (Anxiety, Depression), Other (Restless leg syndrome, josefina ramirez, PNA, Headache, ) and Other (Right shoulder deformity from fall 2022,
followed by Dr. Freire)
ED Past Surgical History: Cardiac (Stents x 4 2018), Cholecystectomy, Gynecological (Partial hysterectomy), Orthopedic (Foot surgery, Carpal tunnel, Knee surgery X 3), Tonsilectomy and Other (Basal cell removal, breast augmentation, Abd adhesions )
Social History
Tobacco: Smoker
Alcohol: Occasional
Drug: None
Personal:
Living: alone
Employment: Employed
Family History
Family History: Other (Noncontributory)
Phy Exam
Physical Exam
Physical Exam:
General: Well-appearing, no clinical signs of dehydration, nontoxic and in no acute distress
HEENT: protecting airway
Neck: appears supple
CV: Normal heart rate, regular rhythm
Resp: No accessory muscle use, no increased work of breathing, lungs clear to auscultation bilaterally
Abd: Soft and non-distended, mild generalized tenderness to the right side of the abdomen and right side of thoracic back, without overlying
Extremities: No deformities, no swelling
Neuro: alert, no focal neurologic deficit
: deferred
Rectal: deferred
Psych: Normal affect
Skin: Intact
Course
Orders/Labs/Results
Orders:
Orders
04/13/24 22:54
Complete Blood Count/With Diff Urgent
Comprehensive Metabolic Panel Urgent
Lipase Urgent
Urinalysis Reflex To Culture Urgent
Date Specimen was Collected: 04/13/24
Time Specimen was Collected: 22:42
Urine Microscopic Reflex Cult Urgent
04/14/24 05:39
CT Abd/pel Without Iv Or Oral Urgent
Reason For Exam: right sided abdominal and flank pain
Ketorolac [Toradol] 15 mg IM NOW STA
Abnormal Lab Results
04/13/24
22:54
Chloride 96 L mmol/L
(98-107)
Carbon Dioxide 36 H mmol/L
(22-30)
BUN 18 H mg/dl
(7-17)
Glucose 232 H mg/dl
(70-99)
Lipase 408 H U/L
(23-300)
Leukocyte Esterase Rfl Trace A
(Negative)
04/13/24 22:54
04/13/24 22:54
Vital Signs
Initial and Last Documented VS:
Initial Vital Signs
Temp Pulse Resp BP Pulse Ox
98.9 F 83 18 127/64 98
04/13/24 22:39 04/13/24 22:39 04/13/24 22:39 04/13/24 22:39 04/13/24 22:39
Last Documented Vital Signs
Temp Pulse Resp BP Pulse Ox
98.9 F 76 14 104/13 96
04/13/24 22:39 04/14/24 05:42 04/14/24 05:42 04/14/24 08:02 04/14/24 08:02
MDM/Problems Addressed
MDM/Problems Addressed:
73-year-old female presenting for right-sided abdominal pain and back pain, onset yesterday. Vital signs on arrival are normal.
On exam, patient is sleeping, requiring awakening. She is afebrile today. Mild generalized tenderness to the right side of the abdomen and the right flank. Lower suspicion for acute intra-abdominal pathology given benign examination and history
of appendectomy and cholecystectomy. Gastric pathology is a consideration versus musculoskeletal quality to pain versus kidney stone. Patient with a history of allergy to contrast. Will obtain CT imaging and continue to closely monitor
*Critical Care Note
Total Time (30-74mins, 75-104mins- exclusive of procedures): Not Applicable
ED Attending Note
-
Portions of this chart may have been created with voice recognition software.� Occasional wrong word or��sound alike� substitutions may have occurred due to the inherent limitations of voice recognition software.
Discharge Plan
Departure
Patient Disposition: Home (Routine Discharge)
Date of Disposition: 04/14/24
Time of Disposition: 09:33
Patient with high blood pressure during this ER visit?: No
Condition: Good
Discharge Problem:
Abdominal pain
Instructions: Abdominal Pain
Prescriptions:
No Action
pramipexole 0.25 MG tablet
0.5 mg PO QPM
Patient Comments:
FOR RESTLESS LEGS
Rx Instructions:
MAY TAKE 0.75MG
spironolactone 25 MG tablet
50 mg PO DAILY
losartan 25 MG tablet
25 mg PO DAILY
ibuprofen [Advil] 200 MG tablet
200 mg PO PRN PRN (Reason: arthritis )
aspirin [Aspirin Childrens] 81 MG tablet,chewable
81 mg PO DAILY
nitroglycerin 0.4 MG tablet, sublingual
0.4 mg sublingual [id number] PRN (Reason: chest pain) Qty: 25 2RF
metformin 1,000 MG tablet
1,000 mg PO BID Qty: 0 0RF
simvastatin 40 mg Tablet
40 mg PO HS
furosemide [Lasix] 20 mg Tablet
20 mg PO DAILY PRN (Reason: ANKLE SWELLING)
repaglinide 2 mg Tablet
2 mg PO BID
Patient Comments:
BEFORE MEALS
cholecalciferol (vitamin D3) [Vitamin D3] 50 mcg (2,000 unit) Capsule
50 mcg PO DAILY
gabapentin 400 mg Tablet
400 mg PO DAILY
estradiol 0.01 % (0.1 mg/gram) Cream
1 g VAGINAL .TWICE PER WEEK
doxycycline hyclate 100 mg capsule
100 mg PO BID 10 Days Qty: 20 0RF
oxycodone 5 mg tablet
5 mg PO Q8H PRN (Reason: Pain) Qty: 10 0RF
azithromycin 250 mg tablet
250 mg PO DAILY 4 Days Qty: 4 0RF
ciprofloxacin HCl 500 mg tablet
500 mg PO BID Qty: 14 0RF
ketorolac 10 mg tablet
10 mg PO Q8H PRN (Reason: Pain) Qty: 20 0RF
Rx Instructions:
maximum total duration of 5 days from all oral, intranasal, or parenteral formulations
lorazepam [Ativan] 0.5 mg tablet
0.5 mg PO BID PRN (Reason: anxiety) Qty: 10 0RF
Referrals:
UNKNOWN - PT DOES,NOT KNOW [Family Provider] -
Activity Restrictions/Additional Instructions:
You were seen in the emergency department for abdominal pain
You were found to have normal blood work and CT imaging of your abdomen
Please follow-up closely with your primary care physician.
Return to the emergency department for any worsening of your symptoms, or any development of chest pain, difficulty breathing, abdominal pain with persistent vomiting and inability to tolerate food or liquid by mouth (concern for dehydration),
weakness, headache or confusion, fever greater than 100.4, or any additional symptoms that are concerning to you.
Thank you for choosing [facility].
Interventions
Interventions:
*Risk Screen - Suicide Last Done: 04/14/24 04:04
*General Assessment Last Done: 04/14/24 04:00
*Neglect/Abuse Screening Last Done: 04/14/24 04:04
ED- Fall Risk Assessment Last Done: 04/14/24 05:35
*ED COVID-19 Vaccine History Last Done: 04/14/24 04:03
PH-Ubixkc-Dhvhbjcqhn Assessment Last Done: 04/14/24 03:57
Discharge Date and Time
Print Language: GREEK
[2024-04-14 08:02] VITALS: BP 104/13
== END 2024-04-14 10:00 | disposition home or self-care (01) ==
LOC: EMR 22:23
PROVIDERS: EMERGENCY PHYSICIAN Student in an Organized Health Care Education/Training Program
DX: R10.9 Unspecified abdominal pain (principal); E11.9 Type 2 diabetes mellitus without complications; Z59.00 Homelessness unspecified; F17.200 Nicotine dependence, unspecified, uncomplicated; I10 Essential (primary) hypertension
CPT/HCPCS: 99284; 96372; 74176; 80053; 81003; 81015; 83690; 85025

== ENCOUNTER 2024-09-04 11:23 | Emergency (ER) | payer OTHER, SELFPAY ==
[2024-09-04 11:43] VITALS: BP 153/82
[2024-09-04 12:08] LABS: % Basophils 0.4 % (0-2); % Eosinophils 0.8 % (0-6); % Immature Granulocytes 0.4 % (0-0.5); % Monocytes 6.9 % (1.7-9.3); % Neutrophils 71.5 % (42.2-75.2); Absolute Eosinophils 0.1 10^3/uL (0-0.7); Absolute Lymphocytes 1.8 10^3/uL (1.2-3.4); Absolute Monocytes 0.6 10^3/uL (0.1-0.6); Absolute Neutrophils 6.4 10^3/uL (1.4-6.5); Hematocrit 38.3 % (37.0-47.0); Hemoglobin 13.1 g/dL (12.0-16.0); Mean Corp Hgb Conc. 34.2 g/dL (33.0-37.0); Mean Corpuscular Hgb 31.9 pg (27.0-31.0); Mean Corpuscular Volume 93.2 fL (81.0-99.0); Mean Platelet Volume 10.1 fL (7.4-10.4); Nucleated Red Blood Cells % 0 %; Platelet Count 226 10^3/uL (130-400); Red Blood Cell Count 4.11 10^6/uL (4.20-5.40); White Blood Cell Count 8.9 10^3/uL (4.8-10.8)
[2024-09-04 12:22] LABS: ALT (SGPT) 12 U/L (0-35); AST (SGOT) 16 U/L (14-36); Albumin 4.1 g/dl (3.5-5.0); Alkaline Phosphatase 105 U/L (38-126); Blood Urea Nitrogen 23 mg/dl (7-17); Calcium 9.5 mg/dl (8.4-10.2); Carbon Dioxide 28 mmol/L (22-30); Chloride 107 mmol/L (98-107); Glucose 195 mg/dl (70-99); Potassium 4.9 mmol/L (3.5-5.1); Sodium 140 mmol/L (135-145); Total Bilirubin 0.5 mg/dl (0.2-1.3); Total Protein 6.6 g/dl (6.3-8.2); eGFR > 60.00
[2024-09-04 12:30] LABS: Urine Albumin Negative (Neg - Trace); Urine Bilirubin Negative (Negative); Urine Character Clear (Clear); Urine Color Yellow; Urine Glucose 1+ (Negative); Urine Ketone Negative (Negative); Urine Leukocyte 2+ (Negative); Urine Nitrite Negative (Negative); Urine Occult Blood Negative (Negative); Urine Urobilinogen Negative (Neg - 1+)
[2024-09-04 12:46] LABS: Urine Urothelial Cell 0-2 /LPF (FEW)
[2024-09-04 12:47] LABS: Urine Hyaline Cast 0-2 /LPF (0-2); Urine Squamous Cell >30 /LPF (Few)
[2024-09-04 12:49] LABS: Urine Bacteria Few (Negative); Urine Red Blood Cell 0-2 /HPF (0-2)
[2024-09-04 13:43] VITALS: BP 138/72
--- NOTE | 2024-09-04 14:09 | ED.GENMED ---
History of Present Illness
General
Chief Complaint: Dehydration Symptoms
Source: patient
Exam Limitations: none
Time Seen by Provider: 09/04/24 13:23
Nursing documentation reviewed up to this point in time: agreed with
History of Present Illness
History of Present Illness:
74-year-old female states 2 days ago she felt 'a little dizzy, she made an appointment to see her PCP and saw her PCP yesterday. At that office she states her blood pressure was 70/40 and she was sent to [facility] ER. She was given IV fluids and
magnesium and told that she was dehydrated and had acute kidney injury. She is homeless, she lives in her car, she has a boyfriend in [place] [place], she has access to food and drink and her medications, she has a [employer] dog that was in her car the
entire time she was in the ER at [facility]. They wanted to admit her to [facility] but because of her dog she refused and she signed out AMA. Prior to discharge they told her she would if she did not continue to get IV fluids as her kidneys
are failing.
She left, took her dog to her boyfriend's house in [place] today and on her way back came here instead of [facility]. She states she drank a lot more water last night and today than she usually does.
She states she feels better today, no weakness or dizziness or lightheadedness.
Past History
Past History
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
followed by Dr. Freire)
ED Past Surgical History: Cardiac (Stents x 4 2017), Cholecystectomy, Gynecological (Partial hysterectomy), Orthopedic (Foot surgery, Carpal tunnel, Knee surgery X 3), Tonsilectomy and Other (Basal cell removal, breast augmentation, Abd adhesions )
Social History
Tobacco: Smoker
Alcohol: Occasional
Drug: None
Personal:
Living: alone
Employment: Employed
Family History
Family History: Other (Noncontributory)
Review of Systems
Review of Systems
Allergies reviewed?: Yes
All Other Systems: ROS reviewed and negative except as documented in HPI and ROS
Constitutional: Denies fever or fatigue
Respiratory: Denies cough or trouble breathing
Cardiac: Denies chest pain
ABD/GI: Denies abdominal pain, nausea, vomiting, diarrhea or anorexia
: Denies dysuria, frequency or difficulty voiding
Musculoskeletal: Reports no symptoms
Skin: Reports no symptoms
Neurological: Reports no symptoms
Phy Exam
Physical Exam
Physical Exam:
GENERAL: No acute distress. A&Ox3.
CONSTITUTIONAL: Afebrile.
EYES: clear, conjunctivae normal
ENMT: moist mucus membranes, Pharynx nl
RESPIRATORY: Regular respirations, nonlabored, lungs clear.
CARDIOVASCULAR: Regular rate and rhythm, no murmurs, no rubs.
GI: Soft, nontender, normal BS
MUSCULOSKELETAL: Moves with ease. Well perfused.
SKIN: Warm, dry, pink
PSYCH: Normal mood and affect. Well kept, interactive and appropriate
NEUROLOGIC: Awake, alert and oriented. No focal neurological deficits
Course
Orders/Labs/Results
Orders:
Orders
09/04/24 11:55
Complete Blood Count/With Diff Urgent
Comprehensive Metabolic Panel Urgent
Urinalysis Reflex To Culture Urgent
Date Specimen was Collected: 09/04/24
Time Specimen was Collected: 11:49
Urine Microscopic Reflex Cult Urgent
Urine Culture Urgent
JOHNY Source: U
Specimen Description:
Date Specimen was Collected: 09/04/24
Time Specimen was Collected: 11:49
Abnormal Lab Results
09/04/24
11:55
RBC 4.11 L 10^6/uL
(4.20-5.40)
MCH 31.9 H pg
(27.0-31.0)
Lymphocytes % 20.0 L %
(20.5-51.1)
BUN 23 H mg/dl
(7-17)
Glucose 195 H mg/dl
(70-99)
Leukocyte Esterase Rfl 2+ A
(Negative)
Urine Bacteria (Reflex) Few A
(Negative)
Urine Glucose 1+ A
(Negative)
09/04/24 11:55
09/04/24 11:55
Vital Signs
Initial and Last Documented VS:
Initial Vital Signs
Temp Pulse Resp BP Pulse Ox
98.2 F 88 18 153/82 99
09/04/24 11:43 09/04/24 11:43 09/04/24 11:43 09/04/24 11:43 09/04/24 11:43
Last Documented Vital Signs
Temp Pulse Resp BP Pulse Ox
98.1 F 79 18 138/72 98
09/04/24 13:43 09/04/24 13:43 09/04/24 13:43 09/04/24 13:43 09/04/24 13:43
MDM/Problems Addressed
MDM/Problems Addressed:
[id number] female states 2 days ago she felt 'a little dizzy, she made an appointment to see her PCP and saw her PCP yesterday. At that office she states her blood pressure was 70/40 and she was sent to [facility] ER. She was given IV
fluids and magnesium and told that she was dehydrated and had acute kidney injury. She is homeless, she lives in her car, she has a boyfriend in [place], she has access to food and drink and her medications, she has a Chihuahua dog that was in her
car the entire time she was in the ER at [facility]. They wanted to admit her to [facility] but because of her dog she refused and she signed out AMA. Prior to discharge they told her she would if she did not continue to get IV fluids as her
kidneys are failing.
She left, took her dog to her boyfriend's house in [place] [facility] [place] today and on her way back came here instead of [facility]. She states she drank a lot more water last night and today than she usually does.
She states she feels better today, no weakness or dizziness or lightheadedness.
2:15 p.m.
CBC normal
CMP normal save for glucose of 195. Patient is on metformin and takes it sporadically as she does all her medications. She is informed to take it regularly
Given a copy of all her lab results
UA unremarkable
Patient is pleasant, appears well, informed her to stay hydrated.
She states she is living out of her car, she has a boyfriend in [place], she is comfortable and has access to all her medications, food and drink.
Stable for discharge.
Pharmacy updated her medication list. She states she takes her medications sporadically.
*Critical Care Note
Total Time (30-74mins, 75-104mins- exclusive of procedures): Not Applicable
ED Attending Note
-
Portions of this chart may have been created with voice recognition software.� Occasional wrong word or��sound alike� substitutions may have occurred due to the inherent limitations of voice recognition software.
Discharge Plan
Departure
Patient Disposition: Home (Routine Discharge)
Patient with high blood pressure during this ER visit?: No
Condition: Good
Discharge Problem:
Health education
Prescriptions:
No Action
pramipexole 0.25 MG tablet
0.75 mg PO QPM
aspirin [Aspirin Childrens] 81 MG tablet,chewable
81 mg PO DAILY
nitroglycerin 0.4 MG tablet, sublingual
0.4 mg sublingual [id number] PRN (Reason: chest pain) Qty: 25 2RF
metformin 1,000 MG tablet
1,000 mg PO BID Qty: 0 0RF
simvastatin 40 mg Tablet
40 mg PO HS
repaglinide 2 mg Tablet
2 mg PO AC
gabapentin 400 mg Tablet
400 mg PO DAILY
estradiol 0.01 % (0.1 mg/gram) Cream
1 g VAGINAL .TWICE PER WEEK
methylphenidate HCl [Ritalin] 5 mg Tablet
5 mg PO BID
albuterol sulfate [ProAir HFA] 90 mcg/actuation Hfa Aerosol Inhaler
2 puff INHALATION R Q6HPRN PRN (Reason: sob)
bupropion HCl [Wellbutrin XL] 150 mg Tablet Extended Release 24 Hr
150 mg PO BID
dulaglutide 4.5 mg/0.5 mL Pen Injector
4.5 mg SC QWEEK
lorazepam [Ativan] 0.5 mg tablet
0.5 mg PO BIDPRN PRN (Reason: anxiety)
Referrals:
Fly,Mimi, DO [Family Provider] - As needed
Activity Restrictions/Additional Instructions:
As we discussed, nothing worrisome in your workup here today. No sign of dehydration. No sign of kidney insufficiency. No sign of urinary tract infection.
Your blood pressure is normal.
Interventions
Interventions:
*Risk Screen - Suicide Last Done: 09/04/24 11:43
*General Assessment Last Done: 09/04/24 11:43
*Neglect/Abuse Screening Last Done: 09/04/24 11:43
*ED- Fall Risk Assessment Last Done: 09/04/24 14:00
*ED COVID-19 Vaccine History Last Done: 09/04/24 14:00
*Nursing Disposition Last Done: 09/04/24 14:37
ED- Cardiac Assessment Last Done: 09/04/24 13:36
ED- Neurological Assessment Last Done: 09/04/24 13:36
ED- Pulmonary Assessment Last Done: 09/04/24 13:36
Discharge Date and Time
Discharge Date/Time: 09/04/24 14:38
Print Language: GRENADIAN
== END 2024-09-04 14:38 | disposition home or self-care (01) ==
LOC: EMR 11:23
PROVIDERS: Emergency Medicine; EMERGENCY PHYSICIAN Student in an Organized Health Care Education/Training Program; FAMILY PHYSICIAN Internal Medicine
DX: Z71.89 Other specified counseling (principal); Z59.02 Unsheltered homelessness; F17.200 Nicotine dependence, unspecified, uncomplicated
CPT/HCPCS: 99283; 80053; 81003; 81015; 85025; 87086

== ENCOUNTER 2024-10-31 14:29 | Inpatient (IN) | payer OTHER, SELFPAY ==
[2024-10-31] VITALS (27 sets, daily range): BP systolic 105–177; BP diastolic 59–98; BMI 25.5
--- NOTE | 2024-10-31 12:55 | ED.GENMED ---
History of Present Illness
General
Chief Complaint: Chest Pain
Source: patient
Exam Limitations: none
Time Seen by Provider: 10/31/24 12:48
Nursing documentation reviewed up to this point in time: agreed with
History of Present Illness
History of Present Illness:
74-year-old female presents emergency room due to chest pain ongoing since yesterday. She had some pain this morning which brought her in. She denies any at this time. STEMI alert called upon reviewing her EKG.
Past History
Past History
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
followed by Dr. Freire)
ED Past Surgical History: Cardiac (Stents x 4 2018), Cholecystectomy, Gynecological (Partial hysterectomy), Orthopedic (Foot surgery, Carpal tunnel, Knee surgery X 3), Tonsilectomy and Other (Basal cell removal, breast augmentation, Abd adhesions )
Social History
Tobacco: Smoker
Alcohol: Occasional
Drug: None
Personal:
Living: alone
Employment: Employed
Family History
Family History: Other (Noncontributory)
Review of Systems
Review of Systems
Allergies reviewed?: Yes
Constitutional: Reports no symptoms
EENT: Reports no symptoms
Respiratory: Reports no symptoms
Cardiac: Reports chest pain
ABD/GI: Reports no symptoms
: Reports no symptoms
Musculoskeletal: Reports no symptoms
Skin: Reports no symptoms
Neurological: Reports no symptoms
Endocrine: Reports no symptoms
Hematologic/Lymphatic: Reports no symptoms
Psychiatric: Reports no symptoms
Phy Exam
Physical Exam
Physical Exam:
Physical Exam
General: no apparent distress, not acutely ill
Neck: supple. no meningeal signs. normal posterior pharynx
Heart: s1/s2 Tachycardia, no murmur. equal radial
pulses.
HEENT: Pupils equal round reactive to light, EOMI
Lungs: no acute respiratory distress. clear bilaterally
Abdomen: normal bowel sounds. not tender. no CVAT
Neuro: alert and oriented. no focal neurological deficits cranial nerves II through XII intact
Skin: no rash
Psychiatric: well kept. interactive and cooperative
Extremities: Bilateral tibial edema. no calf tenderness. negative homans. good distal pulses
Scores
Heart Score for Chest Pain Patients
STEMI patient?: Yes
Course
Orders/Labs/Results
Orders:
Orders
10/31/24 12:38
Electrocardiogram (*1) Urgent
Reason for Study: Chest Pain
EKG- Treatment ONCE
10/31/24 12:58
IV Insert/Care/Rem.- Treatment PRN
Aspirin Chewable [Low Strength Aspirin] 324 mg PO NOW STA
Heparin 4,900 units IV NOW STA
Ticagrelor [Brilinta] 180 mg PO ONCE ONE
Pulse Ox/cont/shift [RESP] Stat
Quantity: 1
10/31/24 12:59
Cardiac Monitoring- Treatment ONCE
10/31/24 13:01
Complete Blood Count/With Diff Urgent
Comprehensive Metabolic Panel Urgent
NT-proBNP Urgent
Troponin I Urgent
10/31/24 13:11
Fentanyl Citrate/Pf [Sublimaze] 100 mcg .ROUTE .STK-MED ONE
Heparin 10,000 units .ROUTE .STK-MED ONE
Midazolam HCl [Versed] 2 mg .ROUTE .STK-MED ONE
Abnormal Lab Results
10/31/24
13:01
WBC 11.1 H 10^3/uL
(4.8-10.8)
MCH 31.4 H pg
(27.0-31.0)
Absolute Neuts (auto) 8.8 H 10^3/uL
(1.4-6.5)
Neutrophils % 79.6 H %
(42.2-75.2)
Lymphocytes % 12.3 L %
(20.5-51.1)
BUN 21 H mg/dl
(7-17)
Glucose 312 H mg/dl
(70-99)
10/31/24 13:01
10/31/24 13:01
Vital Signs
Initial and Last Documented VS:
Initial Vital Signs
Temp Pulse Resp BP Pulse Ox
98.7 F 107 16 139/90 98
10/31/24 12:36 10/31/24 12:36 10/31/24 12:36 10/31/24 12:36 10/31/24 12:36
Last Documented Vital Signs
Temp Pulse Resp BP Pulse Ox
98.7 F 113 21 177/98 98
10/31/24 12:36 10/31/24 12:49 10/31/24 12:49 10/31/24 12:49 10/31/24 12:58
MDM/Problems Addressed
Differential Diagnosis Includes:
ACS, PE
MDM/Problems Addressed:
74-year-old female with STEMI. Now pain-free.
Chronic conditions affecting care: HTN, CAD and Cardiomyopathy
Acute Exacerbation and/or Progression of Chronic Illness: CAD and Cardiomyopathy
*Pulse Oximetry
SaO2: 98
Oxygen Mode of Delivery: Room air
Patient hypoxic: no
*EKG
Interpreted by ED Provider?: Yes
EKG Intrepretation Date: 10/31/24
EKG Intrepretation Time: 12:43
Interpretation: abnormal
Comparison EKG: no comparison EKG present
Heart Rate: 98
Rate: normal
Rhythm: sinus
Honaker: normal axis
Interval: normal interval
QRS Pattern: normal QRS
Ischemia: ST elevation
*Care Professional Interpretation
Rate: normal
Interpretation: normal
Heart Rate: 98
Rhythm: sinus
*Critical Care Note
Total Time (30-74mins, 75-104mins- exclusive of procedures): Not Applicable
Data Reviewed
Review of Other/Old Records Reveals: Operative Reports (09/02/17, STENTS IN MID lad, PROXIMA lad, MID rca, OSTIAL rca)
Source: records
Patient Management
Social determinants of health affecting care: Living situation, Financial situation and Poor social support
Discussion with other providers: Rental Sales Associate (cardiology Dr. Ramos)
Escalation/DeEscalation of care consider admission/obs:
admit to central lab technician indicated
ED Attending Note
-
Portions of this chart may have been created with voice recognition software.� Occasional wrong word or��sound alike� substitutions may have occurred due to the inherent limitations of voice recognition software.
Discharge Plan
Departure
Patient Disposition: MANAGER TECHNICAL
Date of Disposition: 10/31/24
Time of Disposition: 13:02
Admit to: laborer concrete paving
Presentation/result/management discussed w/ accepting MD/DO: Dr. Ramos, cardioinvasive
Patient with high blood pressure during this ER visit?: Yes
Condition: Fair
Discharge Problem:
ST elevation (STEMI) myocardial infarction
Prescriptions:
No Action
pramipexole 0.25 MG tablet
0.75 mg PO QPM
aspirin [Aspirin Childrens] 81 MG tablet,chewable
81 mg PO DAILY
nitroglycerin 0.4 MG tablet, sublingual
0.4 mg sublingual [id number] PRN (Reason: chest pain) Qty: 25 2RF
metformin 1,000 MG tablet
1,000 mg PO BID Qty: 0 0RF
simvastatin 40 mg Tablet
40 mg PO HS
repaglinide 2 mg Tablet
2 mg PO AC
gabapentin 400 mg Tablet
400 mg PO DAILY
estradiol 0.01 % (0.1 mg/gram) Cream
1 g VAGINAL .TWICE PER WEEK
methylphenidate HCl [Ritalin] 5 mg Tablet
5 mg PO BID
albuterol sulfate [ProAir HFA] 90 mcg/actuation Hfa Aerosol Inhaler
2 puff INHALATION R Q6HPRN PRN (Reason: sob)
bupropion HCl [Wellbutrin XL] 150 mg Tablet Extended Release 24 Hr
150 mg PO BID
dulaglutide 4.5 mg/0.5 mL Pen Injector
4.5 mg SC QWEEK
lorazepam [Ativan] 0.5 mg tablet
0.5 mg PO BIDPRN PRN (Reason: anxiety)
Referrals:
UNKNOWN - PT NOT,INTERVIEWE [Family Provider]
Interventions
Interventions:
*Risk Screen - Suicide Last Done: 10/31/24 12:36
*General Assessment Last Done: 10/31/24 12:51
*Neglect/Abuse Screening Last Done: 10/31/24 12:36
ED- Cardiac Assessment Last Done: 10/31/24 12:50
Discharge Date and Time
Print Language: FRENCH
[2024-10-31 13:07] LABS: Hematocrit 38.9 % (37.0-47.0); Hemoglobin 13.6 g/dL (12.0-16.0); Mean Corp Hgb Conc. 35.0 g/dL (33.0-37.0); Mean Corpuscular Volume 89.8 fL (81.0-99.0); Nucleated Red Blood Cells % 0 %; Platelet Count 248 10^3/uL (130-400); Red Cell Dist. Width 12.3 % (11.5-14.5)
[2024-10-31 13:23] LABS: AST (SGOT) 18 U/L (14-36); Albumin 4.2 g/dl (3.5-5.0); Alkaline Phosphatase 107 U/L (38-126); Blood Urea Nitrogen 21 mg/dl (7-17); Calcium 10.1 mg/dl (8.4-10.2); Carbon Dioxide 25 mmol/L (22-30); Chloride 105 mmol/L (98-107); Estimated Creatinine Clearance 75 ml/min; Glucose 312 mg/dl (70-99); Potassium 3.9 mmol/L (3.5-5.1); Sodium 137 mmol/L (135-145); Total Protein 6.8 g/dl (6.3-8.2); eGFR > 60.00
[2024-10-31 13:37] LABS: Troponin I 0.121 ng/ml
[2024-10-31 13:53] LABS: ALT (SGPT) 13 U/L (0-35)
[2024-10-31 14:02] LABS: ACT-LR - POC 266 Seconds (116-155)
[2024-10-31 14:10] LABS: ACT-LR - POC 279 Seconds (116-155)
[2024-10-31 14:23] LABS: ACT-LR - POC 302 Seconds (116-155)
--- NOTE | 2024-10-31 14:37 | HPS.HSE ---
Addendum entered and electronically signed by Smiley Ramos MD 11/01/24 18:34:
I saw and examined the patient.
The Customer Retention Representative's note was reviewed and I agree with the note.
Comment: Patient is a 74-year-old female with past medical history of hypertension, hyperlipidemia, type 2 diabetes mellitus, depression/anxiety, coronary artery disease status post multivessel PCI with stents to LAD and RCA in 2018, chronic heart
failure with preserved ejection fraction on Lasix who presents after 3-4 episodes of 20 to 30 minutes of substernal chest discomfort since yesterday. Patient was emergently seen in the emergency room given on presentation she was noted to have ST
elevations in the anterolateral leads concerning for a possible ST elevation SC. For the time she presented to the emergency room she was chest pain-free
On exam she is well-appearing in no acute distress, awake, alert and oriented x 3, talking in full sentences without distress, tachycardic normal S1 and S2, no murmurs, rubs or gallops, fine bibasilar Rales, abdomen is soft, nontender, nondistended
with active bowel sounds, warm extremities without significant edema.
Of note she tells me that they had struggles going up the right radial access before.
Recommendations:
1. Though she presented to the emergency room chest pain-free given her history of chest pain since yesterday which made us concerned about a late presenting SC in the setting of significant ST changes, after discussing the risk and benefits,
decision was made to proceed with urgent heart catheterization for concern for high risk ACS and late presenting SC. Detailed informed consent was obtained from patient after reviewing the risk and benefits with her in significant detail.
2. ACS medications including full dose aspirin, statin, beta-viktor, IV unfractionated heparin and Brilinta loaded with 180 mg of Brilinta.
Further recommendations based on heart catheterization.
Smiley Ramos MD, [facility], [facility]
Original Note:
Family Physician
-
Family Physician: Mimi Keller DO
Primary Coordinate Measuring Equipment Operator: Noel Anne MD
Chief Complaint
-
Anterior STEMI
History of Present Illness
74-year-old female h/o CAD MV PCI LAD x2, RCA x2, HTN, HLD, DM2, depression who presents to [facility] ER with ongoing chest pain since yesterday. She had some pain this morning which brought her in. On arrival her chest pain has subsided. STEMI alert
called upon reviewing her EKG with anterior LAVONNE. She was given heparin, asa and Brilinta and brought urgently to cath lab tech.
Medical History
Past Medical History
Past Medical History: Reports CAD (PCI LADx2, RCAx2 2018), Cancer (basal cell skin), GERD, HTN, Hypercholesterolemia and Psychiatric (Anxiety and depression)
Past Surgical History: Reports Cholecystectomy, Gynocological (partial hysterectomy), Orthopedic (carpal tunnel, meniscus x3) and Tonsilectomy
Additional Past Surgical History:
breast augmentation
Social History
Tobacco: Smoker
Alcohol: Occasional
Personal: Partner
Living: Homeless (lives in her car with her dog)
Family History
Family History: Sudden (mother 36)
Allergies / Home Medications
Allergies reflects when Allergies were last updated in [employer].
Home Medications with original date entered in [employer]
Allergy/Medication List:
Allergies
Allergy/AdvReac Type Severity Reaction Status Date / Time
acetaminophen (From Allergy irritates Verified 10/31/24 12:38
Tylenol-Codeine #3) stomach
atorvastatin (From Lipitor) Allergy body aches Verified 10/31/24 12:38
codeine (From Allergy irritates Verified 10/31/24 12:38
Tylenol-Codeine #3) stomach
guaifenesin (From Entex LA) Allergy Swelling Verified 10/31/24 12:38
hydromorphone Allergy n/v Verified 10/31/24 12:38
Iodinated Contrast Media (IV Allergy Unknown Verified 10/31/24 13:05
Dye, Iodine Containing
Contrast )
iodine Allergy inflammatio Verified 10/31/24 12:38
n
lisinopril Allergy cough Verified 10/31/24 12:38
phenylephrine HCl (From Allergy Swelling Verified 10/31/24 12:38
Entex LA)
phenylpropanolamine HCl Allergy Swelling Verified 10/31/24 12:38
(From Entex LA)
povidone-iodine Allergy inflammatio Verified 10/31/24 12:38
n
satin tape Allergy blistering Uncoded 10/31/24 12:38
�Medication �Instructions �Recorded �Confirmed �Type
aspirin 81 mg chewable tablet 81 mg PO DAILY 08/29/17 10/31/24 History
(Aspirin Childrens)
nitroglycerin 0.4 mg sublingual 0.4 mg sublingual [id number] PRN 08/29/17 10/31/24 Rx
tablet chest pain #25 tabs
gabapentin 400 mg tablet 400 mg PO DAILY 02/16/23 10/31/24 History
repaglinide 2 mg tablet 2 mg PO AC 02/16/23 10/31/24 History
albuterol sulfate 90 mcg/actuation 2 puff inhalation R Q6HPRN PRN sob 09/04/24 10/31/24 History
aerosol inhaler
bupropion HCl 150 mg 24 hr tablet, 150 mg PO BID 09/04/24 10/31/24 History
extended release (Wellbutrin XL)
dulaglutide 4.5 mg/0.5 mL 4.5 mg SC QWEEK 09/04/24 10/31/24 History
subcutaneous pen injector
lorazepam 0.5 mg tablet (Ativan) 0.5 mg PO BIDPRN PRN anxiety 09/04/24 10/31/24 History
methylphenidate HCl 5 mg tablet 5 mg PO BID PRN to focus 09/04/24 10/31/24 History
(Ritalin)
cholecalciferol (vitamin D3) 50 50 mcg PO DAILY 10/31/24 10/31/24 History
mcg (2,000 unit) tablet (Vitamin
D3)
furosemide 40 mg tablet (Lasix) 40 mg PO DAILY 10/31/24 10/31/24 History
metformin 1,000 mg tablet 1,000 mg PO DAILY 10/31/24 10/31/24 History
pramipexole 0.5 mg tablet 0.5 mg PO QPM 10/31/24 10/31/24 History
pramipexole 0.75 mg tablet 0.75 mg PO DAILY PRN restless leg 10/31/24 10/31/24 History
simvastatin 40 mg tablet 40 mg PO DAILY 10/31/24 10/31/24 History
levothyroxine 25 mcg tablet 25 mcg PO DAILY 11/01/24 11/01/24 History
(Synthroid)
Review of Systems
-
Cardiac: Reports Chest Pain (resolved on arrival to ER)
Physical Exam
Vital Signs
Vital Signs
Temp Pulse Resp BP Pulse Ox
98.7 F 113 21 177/98 98
10/31/24 12:36 10/31/24 12:49 10/31/24 12:49 10/31/24 12:49 10/31/24 12:58
Physical Exam
General: Conversant
Laboratory Results
-
10/31/24 13:01
10/31/24 13:01
Laboratory Results
Total Bilirubin 0.6 mg/dl (0.2-1.3) 10/31/24 13:01
AST 18 U/L (14-36) 10/31/24 13:01
ALT 13 U/L (0-35) 10/31/24 13:01
Alkaline Phosphatase 107 U/L (38-126) 10/31/24 13:01
Troponin I 0.121 ng/ml H* 10/31/24 13:01
Data Reviewed
-
Medical Tests (Nuc Med, Echo, EKG etc): Report Reviewed by me
Lab Data: Labs Reviewed by me
Old Records: Requested (from Coordinate Measuring Equipment Operator Dr. Anne)
Impression/Plan
-
Family Physician: Mimi Keller DO
Primary Coordinate Measuring Equipment Operator: Noel Anne MD
74-year-old female h/o CAD MV PCI LAD x2, RCA x2, HTN, HLD, DM2, depression she is currently living in her car with her [facility]. She presents to [facility] ER with ongoing chest pain since yesterday. She had some pain this morning which brought her in.
On arrival her chest pain has subsided. STEMI alert called upon reviewing her EKG with anterior LAVONNE. She was given heparin, asa and Brilinta and brought urgently to cath lab tech.
IMPRESSION:
STEMI
SC/CAD prior PCI LAD x2 and RCAx2 09/02/17
HTN
HLD
NIDDM
GERD
Restless leg syndrome
Skin cancer basal cell
Anxiety
Depression
Smoker
PLAN:
Admit IVU post urgent cath
Serial troponin to peak
Check Echo in am
DAPT ASA/Brilinta (CM to eval cost)
Check Lipids - switch simvastatin to rosuvastatin
DM - check A1c, SSI, hold metformin post 48hrs post procedure
cardiac rehab c/s
f/u Dr. Anne in 2-4 weeks
--- NOTE | 2024-10-31 15:53 | CM ---
Priced Brilinta + Prasugrel through patient's insurance plan; [phone].
Estimated cost of Brilinta would be 116.05/mo; Estimated cost of Prasugrel would be $19.78/mo.
TT to KAREN to update.
[2024-10-31 16:06] LABS: Glucose - Point of Care 158 mg/dl (70-99)
--- NOTE | 2024-10-31 16:38 | CM ---
Attempted to meet w/ patient at bedside to complete initial assessment.
Pt. was with nursing. Will re-attempt at a later time.
--- NOTE | 2024-10-31 17:08 | ITS.CL.CATH ---
Spreader - Catheterization
Cardiac Catheterization
Procedure Report:
LEFT HEART CATHETERIZATION AND CORONARY INTERVENTION
Date of Procedure: October 31, 2024
Referring: [facility]
PROCEDURES:
1. Left heart catheterization, coronary angiogram.
2. Moderate sedation.
3. Successful percutaneous coronary artery intervention of a hazy 95% mid LAD stenosis (type C lesion, MADELINE 3) with one 2.5 x 34 mm Medtronic Zaire drug-eluting stent, postdilated using IVUS guidance with 2.5 x 20 mm NC balloon at 18 brent distally
and 2.75 x 15 mm NC balloon at 20 brent proximally with an excellent angiographic result
4. Intravascular Ultrasound (IVUS)
INDICATION: Late presenting HI, high risk ACS
ACCESS: Right common femoral artery, 6Fr. sheath, under US guidance using micropuncture kit.
HEMODYNAMICS : (mmHg)
AO (s/d) : 129/70
LVEDP : 21
No significant gradient across the aortic valve to suggest aortic stenosis.
CORONARY FINDINGS
Dominance: Right
Left main: Large caliber vessel that gives rise to the LAD and LCx branches and is free of angiographic disease.
LAD: Large caliber vessel that gives off two small caliber major diagonals as it course in the interventricular groove to wrap around the apex. The ostial LAD has a 30% stenosis. There are proximal and mid-LAD widely patent stents. Just proximal to
the LAD stent is a 95% stenosis that is the culprit for the HI.�
LCx: Large caliber co-dominant vessel that gives off a large caliber first major obtuse marginal, and several small caliber left posterolateral branches and a left posterior descending artery. The ostial to proximal OM1 has 30-40% stenosis.�
RCA: Large caliber dominant vessel that gives off a long small caliber right posterior descending artery. The ostial RCA has a widely patent stent. The RCA is severely diffusely disease with proximal to mid-vessel long area of 80-90% stenosis. The
RPDA is a small caliber vessel with a mid-vessel 95% stenosis in a location where it is < 2mm.
CORONARY INTERVENTION: We then proceeded with PCI of the LAD. LCA was selectively engaged using 6Fr EBU 3.5 guide.�The patient was given adjunctive heparin and had received aspirin pre-treatment and ticagrelor. �An 0.014� RunThrough wire was
navigated into the distal LAD. �The severe 95% stenosis (MADELINE III, type C) was pre-dilated with a 2.5 x 15 mm Trek Rx balloon and then stented with a 2.5 x 34mm [place] drug-eluting stent that was post-dilated using IVUS guidance with a 2.5 mm
in the mid to distal segment and 2.75 mm in the proximal segment with NC Trek Zach balloons at high pressures. We then performed intravascular ultrasound that showed excellent stent apposition and expansion without proximal or distal edge dissection.
There was 0% residual stenosis of the stented segment and preserved MADELINE III flow at completion angiography.
SEDATION: 67 minutes of procedural sedation was utilized. IV Midazolam and IV Fentanyl were administered. An independent medical engineer was present to assist with and help manage the patient's level of consciousness and physiologic status.
RADIATION SUMMARY: Fluoro Time (min): 7.3, Dose (mGy): 642.37, DAP (Gy.cm2) : 45.6
Closure Device: Femoral angiography demonstrated arteriotomy in the common femoral artery before the bifurcation and below the inferior epigastric artery.�There were no intra-procedural complications. �The sheath was removed with Perclose for groin
hemostasis. �
CONCLUSIONS
1. Successful percutaneous coronary artery intervention of a hazy 95% mid LAD stenosis (type C lesion, MADELINE 3) with one 2.5 x 34 mm Medtronic Zaire drug-eluting stent, postdilated using IVUS guidance with 2.5 x 20 mm NC balloon at 18 brent distally and
2.75 x 15 mm NC balloon at 20 brent proximally with an excellent angiographic result.
2. LVEDP 21mmHG.
RECOMMENDATIONS
1. Bedrest per protocol.
2. Continue aggressive medical therapy and risk factor modification for secondary CAD prevention.
3. Continue ASA 81 mg daily for life.
4. Continue Brilinta for at least 12 months of uninterrupted dual anti-platelet therapy given drug-eluting stent (ABDOULAYE) implantation to mitigate the risk of stent thrombosis. This is not to be stopped for any reason without the guidance of a
cooperer.
5. Hydrate with normal saline to mitigate the risk of contrast-induced acute kidney injury.
6. Referral for outpatient cardiac rehab.
7. Echocardiogram to assess LVEF
8. Follow-up with Dr. Anne.
Copy to: Dr. Noel Anne ([facility] Cardiology)
Smiley Ramos MD, FACC, [facility]
--- NOTE | 2024-10-31 18:21 | PTCARENOTE ---
Received patient from the worm farm laborer at 1451 after PCI done via right femoral artery. Patient lying flat in bed, dressing right groin was dry and intact. Reinforced activity restrictions and need to maintain bedrest x 3 hours. Patient needed frequent
reminding to keep her head on the pillow and to hold her groin when coughing. At 1530 check, patient had a scant amount of drainage on the dressing. When rechecked, right groin dressing was saturated. Dressing removed, oozing noted at site, held
pressure x 15mins and hemostasis pad applied. Tawny Claire NP aware and I informed the patient that she would need to maintain bedrest an additional hour. At site check at 1730, patient found with both legs bent up and right groin dressing again
saturated. Dressing removed, applied manual pressure, Dr. Ramos notified, Yudith TALBERT from CVICU in to see the patient, applied additional pressure to right groin. New hemostasis pad and dressing applied with sandbag. Pure wick placed on the patient
and she was instructed of need to remain in bed tonight. Reinforced post cath restrictions, call flores in reach.
[2024-10-31] MEDS: CRESTOR 20 MG PO (18:40)
[2024-10-31] MEDS: NOVOLOG FLEXPEN-MODERATE RESISTANCE 1 UNITS SC (18:41)
--- NOTE | 2024-10-31 19:26 | PTCARENOTE ---
No further bleeding from the right groin but proximal to cath site area is now firm. Pressure applied and TT to Dr. Ramos. Patient also very concerned about receiving her mirapex for restless leg. Order obtained from Dr. Ramos and CVICU BROADCAST SYSTEMS ENGINEER's seeing
patient, plan to apply fem-stop. Patient informed of maintaining activity restrictions and remaining on bedrest.
[2024-10-31] MEDS: MIRAPEX, GENERIC 0.75 MG PO (19:46)
--- NOTE | 2024-10-31 20:45 | PTCARENOTE ---
Received patient at change of shift. SR on the monitor, HR in the 80s. Firm R groin noted during nursing hand off, pressure held by nurse and CT surgery PA. Groin now soft, dressing intact. No complaints from pt at this time, call flores within reach.
--- NOTE | 2024-10-31 21:48 | CON.HOSP ---
Consultation
-
Date/Time Consultation Requested: 10/31/24 7:25PM
Date/Time Consultation Performed: 10/31/24 9:00PM
Requesting Provider: Dr. Ramos
Performing Provider: Dr. Pressley
Reason for Consultation: Medical Management
Family Physician
-
Family Physician: INTERVIEWE UNKNOWN - PT NOT
Chief Complaint
-
Chest Pain
History of Present Illness
Patient is a 74y F with PMH significant for ASCVD, hypertension and DM-II who presents to ED complaining of chest pain. Patient started with chest pain yesterday AM. She had 3-4 episodes, each lasting about 10 minutes. Episodes occurred at
rest. She presented to the ED today for evaluation and EKG was concerning for STEMI. Patient was seen by Cardiology and taken for urgent cardiac catheterization. Cath revealed 90% lesion to the LAD which was stented.
Patient seen and examined in the IVU. She is resting comfortably. She denies any chest pain, dyspnea at present.
She complains of back pain which she attributes to position restrictions and R femoral pressure application earlier (at puncture site / for hemostasis).
No other complaints of concerns at present.
Medical History
Past Medical History
Past Medical History: Reports Other
Additional Past Medical History:
ASCVD
Hypertension
DM-II
Hypothyroidism
Restless Leg Syndrome
Past Surgical History: Reports Other
Additional Past Surgical History:
PTCA with Stent (x5 including today)
Partial Hysterectomy
Breast Implants
Carpal Tunnel Surgery
Left Knee Arthroscopy
Right Ankle Surgery
Cholecystectomy
T&A
Social History
Tobacco: Smoker (Current every day smoker. > 40 pack years total use.)
Alcohol: Occasional (Rare)
Drug: None
Personal: Other
Living: Homeless (Lives in her car.)
Family History
Family History: Other (Mother: Sudden at age 36.)
Allergies / Home Medications
Allergies reflects when Allergies were last updated in [facility].
Home Medications with original date entered in [facility]
Allergy/Medication List:
Allergies
Allergy/AdvReac Type Severity Reaction Status Date / Time
acetaminophen (From Allergy irritates Verified 10/31/24 12:38
Tylenol-Codeine #3) stomach
atorvastatin (From Lipitor) Allergy body aches Verified 10/31/24 12:38
codeine (From Allergy irritates Verified 10/31/24 12:38
Tylenol-Codeine #3) stomach
guaifenesin (From Entex LA) Allergy Swelling Verified 10/31/24 12:38
hydromorphone Allergy n/v Verified 10/31/24 12:38
Iodinated Contrast Media (IV Allergy Unknown Verified 10/31/24 13:05
Dye, Iodine Containing
Contrast )
iodine Allergy inflammatio Verified 10/31/24 12:38
n
lisinopril Allergy cough Verified 10/31/24 12:38
phenylephrine HCl (From Allergy Swelling Verified 10/31/24 12:38
Entex LA)
phenylpropanolamine HCl Allergy Swelling Verified 10/31/24 12:38
(From Entex LA)
povidone-iodine Allergy inflammatio Verified 10/31/24 12:38
n
satin tape Allergy blistering Uncoded 10/31/24 12:38
Home Medications
aspirin 81 mg chewable tablet (Aspirin Childrens) 81 mg PO DAILY 08/29/17
nitroglycerin 0.4 mg sublingual tablet 0.4 mg sublingual [id number] PRN chest pain #25 tabs 08/29/17
gabapentin 400 mg tablet 400 mg PO DAILY 02/16/23
repaglinide 2 mg tablet 2 mg PO AC 02/16/23
albuterol sulfate 90 mcg/actuation aerosol inhaler 2 puff inhalation R [id number] PRN sob 09/04/24
bupropion HCl 150 mg 24 hr tablet, extended release (Wellbutrin XL) 150 mg PO BID 09/04/24
dulaglutide 4.5 mg/0.5 mL subcutaneous pen injector 4.5 mg SC QWEEK 09/04/24
lorazepam 0.5 mg tablet (Ativan) 0.5 mg PO BIDPRN PRN anxiety 09/04/24
methylphenidate HCl 5 mg tablet (Ritalin) 5 mg PO BID PRN to focus 09/04/24
cholecalciferol (vitamin D3) 50 mcg (2,000 unit) tablet (Vitamin D3) 50 mcg PO DAILY 10/31/24
furosemide 40 mg tablet (Lasix) 40 mg PO DAILY 10/31/24
metformin 1,000 mg tablet 1,000 mg PO DAILY 10/31/24
pramipexole 0.5 mg tablet 0.5 mg PO QPM 10/31/24
pramipexole 0.75 mg tablet 0.75 mg PO DAILY PRN restless leg 10/31/24
simvastatin 40 mg tablet 40 mg PO DAILY 10/31/24
Review of Systems
-
History Source: Patient
Constitutional: Denies Fever or Chills
EENT: Denies Sore Throat
Respiratory: Denies Cough or Trouble Breathing
Cardiac: Denies Chest Pain or Palpitations
Abdomen/GI: Denies Abdominal Pain, Nausea, Vomiting or Diarrhea
: Denies Dysuria or Frequency
Musculoskeletal: Denies Joint Pain or Edema
Neurological: Denies Dizzy or Headache
Psych: Denies Depression or Anxiety
Physical Exam
Vital Signs
Vital Signs
Temp Pulse Resp BP Pulse Ox
98.6 F 86 18 138/72 98
10/31/24 19:43 10/31/24 20:45 10/31/24 16:01 10/31/24 20:40 10/31/24 16:01
Physical Exam
General: Other (74y F in no acute distress.)
HEENT: Moist Mucous Membranes and PERRLA
Respiratory: Clear; Negative Wheezes, Rales or Rhonchi
Cardiac: S1/S2 and Regular Rhythm; Negative Murmur
GI: Soft, Non Tender, Non Distended and Normal Bowel Sounds
Musculoskeletal: No Clubbing, No Cyanosis and No Edema
Neuro: AO x 3
Hematologic/Lymphatic: Other (Dressing in place R groin without bleeding / strikethrough.)
Laboratory Results
-
Laboratory Results
10/31/24 13:01
10/31/24 13:01
Total Bilirubin 0.6 mg/dl (0.2-1.3) 10/31/24 13:01
AST 18 U/L (14-36) 10/31/24 13:01
ALT 13 U/L (0-35) 10/31/24 13:01
Alkaline Phosphatase 107 U/L (38-126) 10/31/24 13:01
Troponin I Cancelled 10/31/24 20:30
Impression / Plan
-
A/R: Patient is a 74y F with PMH significant for ASCVD, hypertension and DM-II who presented to complaining of chest pain. Taken to cathode washer for STEMI and mid LAD stent placed. Medical service consulted for management of other medical issues.
STEMI
ASCVD
- Post-cath care per Cardiology.
- ASA indefinitely. Plavix for at least 1 year.
- Continue aggressive risk factor modification.
- Strongly encourage smoking cessation.
Benign Hypertension
- Stable. Patient on Lasix, but not specific antihypertensive medications.
- Would likely benefit from additional medications for GDMT as BP allows.
DM-II
- Hyperglycemic at present - likely stress response.
- Hold metformin post-cath.
- Follow glucose and cover with SSI as needed.
- Update A1C.
Restless Leg Syndrome
- Stable. Continue usual pramipexole dosing.
Thank you very much for this consultation.
Medical service will follow along with you.
[2024-10-31 21:58] LABS: Troponin I 5.750 ng/ml
[2024-10-31 22:55] LABS: Glucose - Point of Care 210 mg/dl (70-99)
[2024-11-01 03:10] VITALS: BP 130/77
[2024-11-01 05:35] LABS: Hematocrit 35.5 % (37.0-47.0); Hemoglobin 12.3 g/dL (12.0-16.0); Mean Corp Hgb Conc. 34.6 g/dL (33.0-37.0); Mean Corpuscular Volume 89.0 fL (81.0-99.0); Platelet Count 201 10^3/uL (130-400); Red Cell Dist. Width 12.3 % (11.5-14.5)
[2024-11-01 05:57] LABS: Blood Urea Nitrogen 18 mg/dl (7-17); Calcium 8.9 mg/dl (8.4-10.2); Carbon Dioxide 27 mmol/L (22-30); Chloride 106 mmol/L (98-107); Estimated Creatinine Clearance 75 ml/min; Glucose 158 mg/dl (70-99); HDL Cholesterol 44 mg/dl; LDL Cholesterol, Calculated 94 mg/dl; Potassium 4.1 mmol/L (3.5-5.1); Sodium 135 mmol/L (135-145); Very Low Density Lipoprotein 21 mg/dl (0-30); eGFR > 60.00
[2024-11-01 06:09] LABS: Troponin I 4.020 ng/ml
[2024-11-01 07:01] VITALS: BP 117/79
[2024-11-01 07:13] VITALS: BMI 25.1
[2024-11-01 08:10] LABS: Glucose - Point of Care 155 mg/dl (70-99)
[2024-11-01] MEDS: FLUSH (NSS) 1 FLUSH IV (08:48)
[2024-11-01] MEDS: NOVOLOG FLEXPEN-MODERATE RESISTANCE 1 UNITS SC ×2 (08:48→11:59)
[2024-11-01] MEDS: LOW STRENGTH ASPIRIN 81 MG PO (08:48)
[2024-11-01] MEDS: WELLBUTRIN XL (24 hour extended release) 150 MG PO (09:30)
--- NOTE | 2024-11-01 09:33 | PTCARENOTE ---
Right groin dressing is dry and intact, groin soft but tender when palpated. Patient seen by Dr. Ramos, will order ultrasound. Patient informed that she will need another stent either tomorrow or as an outpatient next week. Patient is working on
finding someone to watch her dog if she needs to stay over the weekend.
[2024-11-01 10:04] LABS: Glycohemoglobin (HgbA1c) 8.3 % (4.0-5.6)
--- NOTE | 2024-11-01 11:49 | CARDSERVDEF ---
Echocardiogram with Definity completed after protocol screening completed. Allergies verified.
Patent IV site: __Left arm 18 G PC___
IV site flushed with 0.9% NaCl pre and post administration.
Diluted bolus method utilized to enhance visualization of ventricular coles.
Total volume given: __2.5__ mL
Patient tolerated all procedures well without complications.
[2024-11-01 11:52] LABS: Glucose - Point of Care 176 mg/dl (70-99)
[2024-11-01] MEDS: PLAVIX 600 MG PO (11:59)
--- NOTE | 2024-11-01 12:04 | W.PN.CARDCBS ---
Today's Communication / Plan
-
continue post IL care
DAPT ASA/Plavix
groin u/s negative for PSA/HT
poss staged PCI tomorrow vs outpt
Impression / Plan
-
Family Physician: Mimi Keller, DO
Primary Dental Lab Technician: Noel Anne MD
74-year-old female h/o CAD MV PCI LAD x2, RCA x2, HTN, HLD, DM2, depression she is currently living in her car with her Tee. She presents to [facility] ER with ongoing chest pain since yesterday. She had some pain this morning which brought her in.
On arrival her chest pain has subsided. STEMI alert called upon reviewing her EKG with anterior LAVONNE. She was given heparin, asa and Brilinta and brought urgently to rn labor and delivery.
IMPRESSION:
STEMI
IL/CAD prior PCI LAD x2 and RCAx2 09/02/17
HTN
HLD
NIDDM
GERD
Restless leg syndrome
Skin cancer basal cell
Anxiety
Depression
Smoker
PLAN:
Post PCI 95%hazy LAD x 1 ABDOULAYE 10/31/24
residual 80-90%RCA stenosis, poss treat with PCI tomorrow vs outpt in a few weeks
troponin peaked at 5.75 and trended down
tele SR some PVC's, 3b run NSVT
groin with some tenderness, u/s with no PSA or HT
Echo pending
DAPT ASA/Plavix (loaded today 600mg)
LDL 94 - switch simvastatin to rosuvastatin, goal LDL <55
DM - A1c 8.3%, continue SSI, hold metformin post 48hrs post procedure, defer to medicine to help with management
cardiac rehab c/s
f/u Dr. Anne in 2-4 weeks
oob ambulate, she is working on trying to figure out who will be watching her dog if she stays for staged PCI tomorrow
Progress Note - Dental Lab Technician
Subjective
Date of Service: November 01, 2024
no cp, sob, L shoulder pain from lying flat and mild groin tenderness
Objective
Labs:
11/01/24 05:19
11/01/24 05:19
Labs
Hgb 12.3 g/dL (12.0-16.0) 11/01/24 05:19
Hct 35.5 % (37.0-47.0) L 11/01/24 05:19
Plt Count 201 10^3/uL (130-400) 11/01/24 05:19
Sodium 135 mmol/L (135-145) 11/01/24 05:19
Potassium 4.1 mmol/L (3.5-5.1) 11/01/24 05:19
BUN 18 mg/dl (7-17) H 11/01/24 05:19
Creatinine 0.5 mg/dL (0.6-1.0) L 11/01/24 05:19
Glucose 158 mg/dl (70-99) H 11/01/24 05:19
Troponins
10/31/24 10/31/24 10/31/24
13:01 14:30 20:30
Troponin I 0.121 H* Cancelled Cancelled
10/31/24 11/01/24
21:25 05:19
Troponin I 5.750 H* 4.020 H* D
Vital Signs and I&O:
Vital Signs
Temp Pulse Resp BP Pulse Ox
98.4 F 83 20 117/79 98
11/01/24 07:02 11/01/24 07:45 11/01/24 07:02 11/01/24 07:01 11/01/24 07:02
Vital Signs
Temp Pulse Resp BP Pulse Ox
98.4 F 83 20 117/79 98
11/01/24 07:02 11/01/24 07:45 11/01/24 07:02 11/01/24 07:01 11/01/24 07:02
Intake & Output
10/30/24 10/31/24 11/01/24 11/02/24
06:59 06:59 06:59 06:59
Intake Total 480 / 480
Balance 480 / 480
Physical Exam
Physical Exam
NAD, AOX3
s1, s2, RRR
CTAB, non labored, no wheeze
SNTND bsx4
R fem site c/d/i soft, mildly tender
[2024-11-01 12:23] VITALS: BP 151/84
--- NOTE | 2024-11-01 12:47 | W.PN.HOSP.TC ---
Today's Communication/Plan
-
Monitor vital signs see plan
Restart Synthroid
Restart repaglinide
Continue aspirin and Plavix
Echo pending
Assessment / Plan
Assessment / Plan
General: Other (74y F in no acute distress.)
HEENT: Moist Mucous Membranes and PERRLA
Respiratory: Clear; Negative Wheezes, Rales or Rhonchi
Cardiac: S1/S2 and Regular Rhythm; Negative Murmur
GI: Soft, Non Tender, Non Distended and Normal Bowel Sounds
Musculoskeletal:No Edema
Neuro: AO x 3
STEMI
ASCVD
- Post-cath care per Cardiology.
- ASA indefinitely. Continue Plavix per cardiology
- Continue aggressive risk factor modification.
- Strongly encourage smoking cessation.
Echo pending
Benign Hypertension
- Stable. Patient on Lasix, but not specific antihypertensive medications.
- Would likely benefit from additional medications for GDMT as BP allows.
DM-II
- A1c 8.3
- Hold metformin post-cath.
- Follow glucose and cover with SSI as needed.
Restart repaglinide
Hold dupagliide while inpatient
Restless Leg Syndrome
- Stable. Continue usual pramipexole dosing
Hypothyroidism
Continue Synthroid
TSH noted
DVTppx
per primary
Anticipated Discharge: Within 24 hours
Subjective/Interval History
-
Date of Service: November 01, 2024
Denies pain
Objective Data
-
Labs:
Laboratory Results
11/01/24
05:19
WBC 8.9
Hgb 12.3
Hct 35.5 L
Plt Count 201
Sodium 135
Potassium 4.1
Chloride 106
Carbon Dioxide 27
BUN 18 H
Creatinine 0.5 L
Glucose 158 H
Calcium 8.9
Vital Signs:
Vital Signs
Temp Pulse Resp BP Pulse Ox
97.7 F 83 20 151/84 96
11/01/24 12:23 11/01/24 12:30 11/01/24 12:23 11/01/24 12:23 11/01/24 12:23
I&O
10/31/24 11/01/24 11/02/24
06:59 06:59 06:59
Intake Total 480 / 480
Balance 480 / 480
[2024-11-01] MEDS: MIRAPEX, GENERIC 0.5 MG PO (14:57)
[2024-11-01 15:42] VITALS: BP 153/82
--- NOTE | 2024-11-01 16:30 | CM ---
CM following for DC planning needs.
I met w/ patient at bedside to complete initial assessment.
Pt. informs that she is homeless; she resides in her car. She has been residing in her car since January 2024 when she lost her home. Functionally, she is independent with ADLs, mobility. She has a chihuahua that she cares for in her car. This dog
is currently being boarded.
Patient is well aware of all community supports. She notes that she is on a waiting list for Senior low income housing but states that this can be years. She reports that she was involved with [facility] and was on a waiting list
for supports but in order to access these supports she needed to go to the prison in [place], which she refuses to do. She has connected with Liban through [facility] (she notes no psych dx except Depression) and he has been helpful
and she plans to reach him; last known contact was x2 wks. ago. She has been to a number of churches and outreach organizations for assist.
She has a source of finances through a pension and social security. In fact, this has bumped her income up to a place where her income level is too high for some supports. She does have medical insurance and a primary care Dr. (Mimi Keller in
[place]).
She would be open to CM contacting [employer] at time of DC for funds to stay in a hotel for a night. She reports that she has not used this before.
Will provide info. on [email or web address].
Pt. has declined CM to place any calls on her behalf to outreach programs.
Will cont. to follow.
[2024-11-01 16:48] LABS: Glucose - Point of Care 205 mg/dl (70-99)
[2024-11-01] MEDS: CRESTOR 20 MG PO (17:15)
[2024-11-01] MEDS: NOVOLOG FLEXPEN-MODERATE RESISTANCE 3 UNITS SC (17:15)
--- NOTE | 2024-11-01 18:34 | W.PN.CARDCBS ---
Addendum entered and electronically signed by Smiley Ramos MD 11/02/24 17:34:
Of note, patient presented as a high risk NSTEMI in the setting of symptoms concerning for a late presenting [place] and high risk ECG but was chest pain-free on presentation.
Smiley Ramos MD, [facility], [facility]
Original Note:
Today's Communication / Plan
-
PLAN: 1. Patient is status post PCI to 95% hazy LAD in the midportion with a one 2.5 x 34 mm Medtronic Zaire drug-eluting stent, postdilated using IVUS guidance at high pressure.
2. Uninterrupted dual antiplatelet therapy with daily baby aspirin. Given cost of Brilinta as she is now switched over to Plavix with a load of 600 mg this morning and plan to continue 75 mg daily for at least 1 year. High intensity statin and
beta-viktor as tolerated.
3. Troponin peaked at 5.75 and is downtrending.
4. Telemetry with some PVCs and a short run of NSVT.
5. Echocardiogram is pending to assess biventricular function.
6. Aggressive management of cardiovascular risk factors.
7. Educated at length in regards to importance of smoking cessation and a heart healthy Mediterranean type diet.
8. Discussion was had about residual 80 to 90% proximal to mid RCA stenosis with plan for PCI tomorrow as long as patient is agreeable. N.p.o. after midnight tonight.
9. Outpatient cardiac rehab referral.
10. Eventual referral with outpatient film touch up inspector, Dr. Anne who informed yesterday in regards to her presenting event.
11. Given ongoing discomfort at the right common femoral site with some bruising yesterday we performed a groin ultrasound which was negative for pseudoaneurysm or hematoma.
Discussed with nursing at bedside.
Total time spent: 52-minutes
Impression / Plan
-
Family Physician: Mimi Keller DO
Primary Music Theory Teacher: Noel Anne MD
74-year-old female h/o CAD MV PCI LAD x2, RCA x2, HTN, HLD, DM2, depression she is currently living in her car with her Tee. She presents to [facility] ER with ongoing chest pain since yesterday. She had some pain this morning which brought her in.
On arrival her chest pain has subsided. STEMI alert called upon reviewing her EKG with anterior LAVONNE. She was given heparin, asa and Brilinta and brought urgently to lab tech.
IMPRESSION:
STEMI
[place]/CAD prior PCI LAD x2 and RCAx2 09/02/17
HTN
HLD
NIDDM
GERD
Restless leg syndrome
Skin cancer basal cell
Anxiety
Depression
Smoker
PLAN: 1. Patient is status post PCI to 95% hazy LAD in the midportion with a one 2.5 x 34 mm Medtronic [place] drug-eluting stent, postdilated using IVUS guidance at high pressure.
2. Uninterrupted dual antiplatelet therapy with daily baby aspirin. Given cost of Brilinta as she is now switched over to Plavix with a load of 600 mg this morning and plan to continue 75 mg daily for at least 1 year. High intensity statin and
beta-viktor as tolerated.
3. Troponin peaked at 5.75 and is downtrending.
4. Telemetry with some PVCs and a short run of NSVT.
5. Echocardiogram is pending to assess biventricular function.
6. Aggressive management of cardiovascular risk factors.
7. Educated at length in regards to importance of smoking cessation and a heart healthy Mediterranean type diet.
8. Discussion was had about residual 80 to 90% proximal to mid RCA stenosis with plan for PCI tomorrow as long as patient is agreeable. N.p.o. after midnight tonight.
9. Outpatient cardiac rehab referral.
10. Eventual referral with outpatient film touch up inspector, Dr. Anne who informed yesterday in regards to her presenting event.
11. Given ongoing discomfort at the right common femoral site with some bruising yesterday we performed a groin ultrasound which was negative for pseudoaneurysm or hematoma.
Discussed with nursing at bedside.
Progress Note - Music Theory Teacher
Subjective
Date of Service: November 01, 2024
Oozing at the groin site which is stopped now after additional pressure last night. Some discomfort this morning.
Objective
Labs:
11/01/24 05:19
11/01/24 05:19
Labs
Hgb 12.3 g/dL (12.0-16.0) 11/01/24 05:19
Hct 35.5 % (37.0-47.0) L 11/01/24 05:19
Plt Count 201 10^3/uL (130-400) 11/01/24 05:19
Sodium 135 mmol/L (135-145) 11/01/24 05:19
Potassium 4.1 mmol/L (3.5-5.1) 11/01/24 05:19
BUN 18 mg/dl (7-17) H 11/01/24 05:19
Creatinine 0.5 mg/dL (0.6-1.0) L 11/01/24 05:19
Glucose 158 mg/dl (70-99) H 11/01/24 05:19
Troponins
10/31/24 10/31/24 10/31/24
13:01 14:30 20:30
Troponin I 0.121 H* Cancelled Cancelled
10/31/24 11/01/24
21:25 05:19
Troponin I 5.750 H* 4.020 H* D
Vital Signs and I&O:
Vital Signs
Temp Pulse Resp BP Pulse Ox
98.3 F 92 20 153/82 98
11/01/24 15:41 11/01/24 16:15 11/01/24 15:41 11/01/24 15:42 11/01/24 15:42
Vital Signs
Temp Pulse Resp BP Pulse Ox
98.3 F 92 20 153/82 98
11/01/24 15:41 11/01/24 16:15 11/01/24 15:41 11/01/24 15:42 11/01/24 15:42
Intake & Output
10/30/24 10/31/24 11/01/24 11/02/24
06:59 06:59 06:59 06:59
Intake Total 500 / 500 480 / 480
Balance 500 / 500 480 / 480
Physical Exam
Physical Exam
ANO x 3, no acute distress, well-appearing
Regular rate, normal S1 and S2, no murmurs, rubs or gallops
No JVD, lungs are clear to auscultation bilaterally, normal carotid upstrokes, no carotid bruit
Abdomen soft, nontender, nondistended with active bowel sounds, right common femoral groin access site with dressing in place which is clean, dry and intact without evidence of hematoma or bruit however patient remains tender to touch.
Warm extremities without significant edema
[2024-11-01] MEDS: PRANDIN 2 MG PO (18:38)
[2024-11-01 19:44] VITALS: BP 123/75
[2024-11-01 21:24] LABS: Glucose - Point of Care 84 mg/dl (70-99)
[2024-11-01 22:13] VITALS: BP 113/73
--- NOTE | 2024-11-01 22:39 | PTCARENOTE ---
Received patient from change of shift. SR on the monitor, HR in the 80s. R groin dressing intact, soft. NPO at midnight. No complaints from pt at this time, call flores within reach.
[2024-11-02] VITALS (12 sets, daily range): BP systolic 98–144; BP diastolic 56–82; BMI 24.9
[2024-11-02 02:42] LABS: Hematocrit 36.1 % (37.0-47.0); Hemoglobin 12.8 g/dL (12.0-16.0); Mean Corp Hgb Conc. 35.5 g/dL (33.0-37.0); Mean Corpuscular Volume 87.2 fL (81.0-99.0); Platelet Count 226 10^3/uL (130-400); Red Cell Dist. Width 12.1 % (11.5-14.5)
[2024-11-02 03:01] LABS: Blood Urea Nitrogen 17 mg/dl (7-17); Calcium 9.2 mg/dl (8.4-10.2); Carbon Dioxide 28 mmol/L (22-30); Chloride 106 mmol/L (98-107); Estimated Creatinine Clearance 75 ml/min; Glucose 65 mg/dl (70-99); Potassium 4.0 mmol/L (3.5-5.1); Sodium 137 mmol/L (135-145); eGFR > 60.00
[2024-11-02 03:55] LABS: Glucose - Point of Care 81 mg/dl (70-99)
--- NOTE | 2024-11-02 04:26 | PTCARENOTE ---
Blood sugar from morning labs was 65. Fingerstick accucheck 81. No complaints from pt at this time call flores within reach.
[2024-11-02 08:30] LABS: Glucose - Point of Care 92 mg/dl (70-99)
[2024-11-02] MEDS: PRANDIN PO ×3 (09:00→16:24)
[2024-11-02] MEDS: NOVOLOG FLEXPEN-MODERATE RESISTANCE SC ×3 (09:00→16:24)
[2024-11-02] MEDS: VITAMIN D3 (cholecalciferol) 50 MCG PO (09:06)
[2024-11-02] MEDS: PLAVIX 75 MG PO (09:06)
[2024-11-02] MEDS: SYNTHROID 25 MCG PO (09:06)
[2024-11-02] MEDS: NEURONTIN 400 MG PO (09:06)
[2024-11-02] MEDS: WELLBUTRIN XL (24 hour extended release) 150 MG PO (09:06)
[2024-11-02] MEDS: LOW STRENGTH ASPIRIN 81 MG PO (09:06)
[2024-11-02] MEDS: FLUSH (NSS) 1 FLUSH IV (09:07)
--- NOTE | 2024-11-02 10:31 | PTCARENOTE ---
Patient oob in her room this morning, NPO for cardiac cath. Dressing right groin is dry and intact, offers no complaints, anxious to have procedure.
[2024-11-02 12:16] LABS: Glucose - Point of Care 96 mg/dl (70-99)
--- NOTE | 2024-11-02 13:43 | W.PN.HOSP.TC ---
Addendum entered and electronically signed by Demar Mcintosh MD 11/02/24 17:32:
High risk NSTEMI
Original Note:
Today's Communication/Plan
-
Monitor vital signs see plan
Cath today for RCA lesion
Continue aspirin Plavix
Assessment / Plan
Assessment / Plan
General: Other (74y F in no acute distress.)
HEENT: Moist Mucous Membranes and PERRLA
Respiratory: Clear; Negative Wheezes, Rales or Rhonchi
Cardiac: S1/S2 and Regular Rhythm; Negative Murmur
GI: Soft, Non Tender, Non Distended and Normal Bowel Sounds
Musculoskeletal:No Edema
Neuro: AO x 3
STEMI
ASCVD
- Post-cath care per Cardiology. status post PCI to 95% hazy LAD in the midportion
- ASA indefinitely. Continue Plavix per cardiology
- Continue aggressive risk factor modification.
- Strongly encourage smoking cessation.
Echo pending
Per cardiology n.p.o. for cath today for residual 80 to 90% proximal to mid RCA stenosis with plan for PCI
Groin ultrasound negative for pseudoaneurysm
Benign Hypertension
- Stable. Patient on Lasix, but not specific antihypertensive medications.
- Would likely benefit from additional medications for GDMT as BP allows.
DM-II
- A1c 8.3
- Hold metformin post-cath.
- Follow glucose and cover with SSI as needed.
Restarted repaglinide
Hold dupagliide while inpatient
Restless Leg Syndrome
- Stable. Continue usual pramipexole dosing
Hypothyroidism
Continue Synthroid
TSH noted
DVTppx
per primary
Anticipated Discharge: Within 24 hours
Subjective/Interval History
-
Date of Service: November 02, 2024
Denies chest pain
Objective Data
-
Labs:
Laboratory Results
11/02/24
02:28
WBC 9.0
Hgb 12.8
Hct 36.1 L
Plt Count 226
Sodium 137
Potassium 4.0
Chloride 106
Carbon Dioxide 28
BUN 17
Creatinine 0.6
Glucose 65 L
Calcium 9.2
Vital Signs:
Vital Signs
Temp Pulse Resp BP Pulse Ox
98.5 F 85 20 120/65 97
11/02/24 12:01 11/02/24 12:30 11/02/24 12:01 11/02/24 12:01 11/02/24 12:01
I&O
11/01/24 11/02/24 11/03/24
06:59 06:59 06:59
Intake Total 500 / 500 960 / 960
Balance 500 / 500 960 / 960
[2024-11-02 14:59] LABS: ACT-LR - POC 202 Seconds (116-155)
[2024-11-02 15:13] LABS: ACT-LR - POC 348 Seconds (116-155)
[2024-11-02] MEDS: MIRAPEX, GENERIC 0.5 MG PO (15:56)
[2024-11-02] MEDS: TOPROL XL 12.5 MG PO (15:59)
--- NOTE | 2024-11-02 16:09 | PTCARENOTE ---
Patient returned from the car barn laborer at 1540, AAO but sleepy. Lying flat in bed, dressing left groin is dry and intact with DP pulse weak but palpable. Reinforced importance of maintaining post cath activity restrictions and she is being cooperative.
Ordered dinner for her and monitoring VS, call flores in reach, post EKG done- patient drifting off to sleep.
[2024-11-02 16:19] LABS: Glucose - Point of Care 69 mg/dl (70-99)
[2024-11-02 16:44] LABS: Glucose - Point of Care 83 mg/dl (70-99)
[2024-11-02] MEDS: CRESTOR 20 MG PO (18:24)
[2024-11-02] MEDS: COZAAR 25 MG PO (18:25)
--- NOTE | 2024-11-02 18:26 | ITS.CL.CATH ---
[facility] - Catheterization
Cardiac Catheterization
Procedure Report:
LEFT HEART CATHETERIZATION AND CORONARY INTERVENTION
Date of Procedure: November 02, 2024
Referring: Smiley Ramos MD, [facility], [facility]
PROCEDURES:
1. Left heart catheterization, selective right coronary angiogram
2. Moderate sedation.
3. Successful percutaneous coronary artery intervention of diffuse up to 90% mid RCA stenosis with one 2.5 x 34 mm Medtronic Zaire drug-eluting stent, postdilated using IVUS guidance with a 2.5 x 25 mm NC balloon at 18 brent distally and a 2.75 x 15
mm NC balloon at 18 brent proximally with an excellent angiographic and IVUS based result.
4. Intravascular Ultrasound (IVUS).
INDICATION: Schedule staged RCA PCI for complete revascularization
ACCESS: Left common femoral artery, 6Fr. sheath, under US guidance using micropuncture kit.
HEMODYNAMICS : (mmHg)
AO (s/d) : 96/55
LVEDP : 16 (recheck given previously elevated to make sure patient is adequately diuresed and to help guide postprocedure fluid management)
No significant gradient across the aortic valve to suggest aortic stenosis.
CORONARY FINDINGS
Dominance: Right.�
RCA: Large caliber dominant vessel that gives off a long small caliber right posterior descending artery. The ostial RCA has a widely patent stent. The RCA is severely diffusely disease with proximal to mid-vessel long area of 90% stenosis. The RPDA
is a small caliber vessel with a mid-vessel 95% stenosis in a location where it is < 2mm.
CORONARY INTERVENTION: The right coronary artery was selectively engaged using a 6 Nepali JR4 guide catheter. A 0.014 run-through wire was carefully navigated across the proximal to mid RCA stenosis into the distal vessel. The lesion was
predilated using a 2.5 x 20 mm semicompliant balloon with full expansion. The lesion was subsequently stented using a 2.5 x 34 mm Medtronic Zaire drug-eluting stent and postdilated using IVUS guidance with a 2.5 x 25 mm NC balloon at 18 brent distally
and a 2.75 x 15 mm NC balloon at 18 brent proximally with an excellent angiographic and IVUS based result. Patient tolerated the procedure well with no acute complications.
SEDATION: 47 minutes of procedural sedation was utilized. IV Midazolam and IV Fentanyl were administered. An independent medical assistant cardiology was present to assist with and help manage the patient's level of consciousness and physiologic status.
RADIATION SUMMARY: Fluoro Time (min): 7.6, Dose (mGy): 270.7, DAP (Gy.cm2) : 21 point
Closure Device: Femoral angiography demonstrated arteriotomy in the left common femoral artery before the bifurcation and below the inferior epigastric artery.�There were no intra-procedural complications. �The sheath was removed with Perclose for
groin hemostasis. �
CONCLUSIONS
1. Successful percutaneous coronary artery intervention of diffuse up to 90% mid RCA stenosis with one 2.5 x 34 mm Medtronic [place] drug-eluting stent, postdilated using IVUS guidance with a 2.5 x 25 mm NC balloon at 18 brent distally and a 2.75 x 15 mm
NC balloon at 18 brent proximally with an excellent angiographic and IVUS based result.
2. LVEDP 16mmHG.
RECOMMENDATIONS
1. Bedrest per protocol.
2. Continue aggressive medical therapy and risk factor modification for secondary CAD prevention.
3. Continue ASA 81 mg daily for life.
4. Continue Plavix for at least 12 months of uninterrupted dual anti-platelet therapy given drug-eluting stent (ABDOULAYE) implantation to mitigate the risk of stent thrombosis. This is not to be stopped for any reason without the guidance of a
stripper black and white.
5. Hydrate with normal saline to mitigate the risk of contrast-induced acute kidney injury.
6. Referral for outpatient cardiac rehab.
7. Follow-up with Dr. Anne.
Copy to: Dr. Noel Anne ([facility] Cardiology)
Smiley Ramos MD, [facility], [facility]
[2024-11-02 21:23] LABS: Glucose - Point of Care 196 mg/dl (70-99)
[2024-11-03 03:39] VITALS: BP 136/66
[2024-11-03 04:02] LABS: Glucose - Point of Care 121 mg/dl (70-99)
[2024-11-03 04:15] LABS: Hematocrit 37.7 % (37.0-47.0); Hemoglobin 13.0 g/dL (12.0-16.0); Mean Corp Hgb Conc. 34.5 g/dL (33.0-37.0); Mean Corpuscular Volume 89.8 fL (81.0-99.0); Platelet Count 217 10^3/uL (130-400); Red Cell Dist. Width 12.1 % (11.5-14.5)
[2024-11-03 04:40] LABS: Blood Urea Nitrogen 15 mg/dl (7-17); Calcium 9.4 mg/dl (8.4-10.2); Carbon Dioxide 25 mmol/L (22-30); Chloride 105 mmol/L (98-107); Estimated Creatinine Clearance 75 ml/min; Glucose 116 mg/dl (70-99); Potassium 4.5 mmol/L (3.5-5.1); Sodium 136 mmol/L (135-145); eGFR > 60.00
--- NOTE | 2024-11-03 05:41 | PTCARENOTE ---
Pt NSR on monitor, VSS. Pt denies any pain or discomfort. post cath left groin dsg CDI. Pt independent in the room. Call flores within reach
[2024-11-03 07:41] LABS: Glucose - Point of Care 275 mg/dl (70-99)
[2024-11-03] MEDS: NOVOLOG FLEXPEN-MODERATE RESISTANCE 5 UNITS SC (07:45)
[2024-11-03] MEDS: PRANDIN 2 MG PO (07:45)
[2024-11-03] MEDS: TOPROL XL 12.5 MG PO (07:45)
[2024-11-03] MEDS: NEURONTIN 400 MG PO (07:46)
[2024-11-03] MEDS: LASIX 40 MG PO (07:46)
[2024-11-03] MEDS: WELLBUTRIN XL (24 hour extended release) 150 MG PO (07:46)
[2024-11-03] MEDS: PLAVIX 75 MG PO (07:46)
[2024-11-03] MEDS: LOW STRENGTH ASPIRIN 81 MG PO (07:47)
[2024-11-03] MEDS: SYNTHROID 25 MCG PO (07:47)
[2024-11-03] MEDS: VITAMIN D3 (cholecalciferol) 50 MCG PO (07:47)
[2024-11-03 07:49] VITALS: BP 114/53
--- NOTE | 2024-11-03 09:23 | W.PN.CARDCBS ---
Addendum entered and electronically signed by Solis Tong MD 11/03/24 10:15:
Patient seen, interviewed and examined by me.
Well-appearing, no acute distress
Regular rate and rhythm with normal S1 and S2, no S3 no S4. There is a grade 1/6 apical holosystolic murmur and no rubs. PMI is normally placed.
Lungs are clear to auscultation bilaterally without wheezes rales or rhonchi.
Abdomen soft nontender nondistended with normoactive bowel sounds
Extremities show trace pretibial edema bilaterally no clubbing or cyanosis.
Neurologic exam is grossly nonfocal.
She remains hemodynamically stable after PCI LAD x2, RCA x2. No chest pain or shortness of breath.
EKG today sinus rhythm with anterolateral T wave abnormality but no significant change from yesterday's EKG.
She has a difficult social situation as she is essentially homeless and lives out of her car. She will follow with Dr Ramos as an outpatient.
We are having physical therapy see her. I did discuss with her recommendation for outpatient cardiac rehab. She tells me she does have a membership at [facility] and will plan to continue long-term cardiac rehab/exercise program there after
her initial visit with cardiac rehab.
All of her questions answered.
Stable for discharge to home
Original Note:
Today's Communication / Plan
-
Plan for discharge today
Impression / Plan
-
Family Physician: Mimi Keller, DO
Primary Application Architect Manager: Noel Anne MD
74-year-old female h/o CAD MV PCI LAD x2, RCA x2, HTN, HLD, DM2, depression she is currently living in her car with her [facility]. She presents to [facility] ER with ongoing chest pain since yesterday. She had some pain this morning which brought her in.
On arrival her chest pain has subsided. STEMI alert called upon reviewing her EKG with anterior LAVONNE. She was given heparin, asa and Brilinta and brought urgently to blood and plasma laboratory assistant.
IMPRESSION:
STEMI s/p LAD PCI 10/31/24 and RCA PCI 11/02/24
[place]/CAD prior PCI LAD x2 and RCAx2 09/02/17
HTN
HLD
NIDDM
GERD
Restless leg syndrome
Skin cancer basal cell
Anxiety
Depression
Smoker
Echo 11/01/2024: EF 50%, akinesis of mid anteroseptum, mid septum, mid anterior, apical septum, MAC, mitral sclerosis, trace MR, aortic sclerosis, trace AR
PLAN:
- Patient presented with chest pain and EKG was consistent with STEMI resulting in urgent cardiac catheterization on 10/31/2024 resulting in LAD PCI. She then returned to the [facility] on 11/02/2024 for staged RCA PCI
- Troponin peaked at 5.7
- Feeling well overnight. No chest pain
- Continue aspirin, Plavix. Hemoglobin stable at 13. She does have some bruising and tenderness of right groin status post ultrasound 11/01 which was negative for pseudoaneurysm or hematoma
- Echo with results as above, discussed with patient on 11/03/2024, EF 50% with akinesis of anteroseptal region
- In sinus rhythm on review of telemetry overnight
- LDL 94. She had been on simvastatin as an outpatient which she states she had been tolerating well. She questions the transition to Crestor due to concerns she will not tolerate, however on simvastatin 40 mg daily LDL was suboptimal. Would
attempt to continue Crestor, and if she has intolerance as an outpatient to let us know
- Smoking cessation encouraged
- Hemoglobin A1c 8.3%. Need strict diabetic control moving forward
- She reports she is unhoused, living in her car and cannot afford cardiac rehab. She does have a membership to [facility]. We will give her information for cardiac rehab and suggested she call and speak to someone about initiating exercise
post [place]
- She had previously followed with Dr. Anne, who she says she has not seen in several years. She has requested follow-up with Dr. Ramos moving forward, I have encouraged compliance with outpatient follow-up
- Plan for discharge to home today. Discussed activity limitations for next week with patient
-Discussed with nursing
[id number]
Progress Note - Application Architect Manager
Subjective
Date of Service: November 03, 2024
No chest pain or shortness of breath. Eager for discharge
Objective
Labs:
11/03/24 03:46
11/03/24 03:47
Labs
Hgb 13.0 g/dL (12.0-16.0) 11/03/24 03:46
Hct 37.7 % (37.0-47.0) 11/03/24 03:46
Plt Count 217 10^3/uL (130-400) 11/03/24 03:46
Sodium 136 mmol/L (135-145) 11/03/24 03:47
Potassium 4.5 mmol/L (3.5-5.1) 11/03/24 03:47
BUN 15 mg/dl (7-17) 11/03/24 03:47
Creatinine 0.6 mg/dL (0.6-1.0) 11/03/24 03:47
Glucose 116 mg/dl (70-99) H 11/03/24 03:47
Troponins
10/31/24 10/31/24 10/31/24
13:01 14:30 20:30
Troponin I 0.121 H* Cancelled Cancelled
10/31/24 11/01/24
21:25 05:19
Troponin I 5.750 H* 4.020 H* D
Vital Signs and I&O:
Vital Signs
Temp Pulse Resp BP Pulse Ox
98.2 F 74 16 136/66 96
11/03/24 07:50 11/03/24 03:39 11/03/24 07:50 11/03/24 03:39 11/03/24 07:50
Vital Signs
Temp Pulse Resp BP Pulse Ox
98.2 F 74 16 136/66 96
11/03/24 07:50 11/03/24 03:39 11/03/24 07:50 11/03/24 03:39 11/03/24 07:50
Intake & Output
11/01/24 11/02/24 11/03/24 11/04/24
07:59 07:59 07:59 07:59
Intake Total 500 / 980 960 / 960 1220 / 1220
Balance 500 / 980 960 / 960 1220 / 1220
Physical Exam
Physical Exam
GEN: No distress, awake, alert, oriented x3
HEENT: supple, anicteric, mmm, EOMI
LUNGS: CTA bilaterally, no wheezes/rales
CV: Reg, S1/S2, no murmur
ABD: soft, BS+, NT/ND
EXT: No cyanosis, clubbing, edema
NEURO: Gross non-focal
SKIN: Warm, pink, dry. No rash. Right groin site with lauren-incisional ecchymoses, mildly tender to palpation however no firm areas. Left groin soft, nontender to palpation with dressing in place
--- NOTE | 2024-11-03 09:38 | W.DS.TRANS ---
DC Summary - Database Operator
-
Discharge Instructions:
Discharge Diagnosis/Procedures STEMI
Angioplasty with stent to Left Anterior
Descending artery (10/31/24),
Angioplasty and stent to Right Coronary artery (
11/02/24)
Diet Low Cholesterol,Diabetic, Carb Controlled,Low
Sodium
Driving Restrictions No driving for 24 hours
Other Services Cardiac Rehab
Instructions:
Stand-Alone Forms: DC Instructions- Cath/EP Lab
Changes to Home Medications: Yes
Discharge Medications:
DC Medications w/original date entered in [employer]
aspirin 81 mg chewable tablet (Aspirin Childrens) 81 mg PO DAILY 08/29/17
nitroglycerin 0.4 mg sublingual tablet 0.4 mg sublingual [id number] PRN chest pain #25 tabs 08/29/17
gabapentin 400 mg tablet 400 mg PO DAILY 02/16/23
repaglinide 2 mg tablet 2 mg PO AC 02/16/23
albuterol sulfate 90 mcg/actuation aerosol inhaler 2 puff inhalation R Q6HPRN PRN sob 09/04/24
bupropion HCl 150 mg 24 hr tablet, extended release (Wellbutrin XL) 150 mg PO DAILY 09/04/24
dulaglutide 4.5 mg/0.5 mL subcutaneous pen injector 4.5 mg SC QWEEK 09/04/24
lorazepam 0.5 mg tablet (Ativan) 0.5 mg PO BIDPRN PRN anxiety 09/04/24
methylphenidate HCl 5 mg tablet (Ritalin) 5 mg PO BID PRN to focus 09/04/24
cholecalciferol (vitamin D3) 50 mcg (2,000 unit) tablet (Vitamin D3) 50 mcg PO DAILY 10/31/24
furosemide 40 mg tablet (Lasix) 40 mg PO DAILY 10/31/24
metformin 1,000 mg tablet 1,000 mg PO DAILY 10/31/24
pramipexole 0.5 mg tablet 0.5 mg PO QPMPRN PRN restless leg 10/31/24
levothyroxine 25 mcg tablet (Synthroid) 25 mcg PO DAILY 11/01/24
clopidogrel 75 mg tablet 75 mg PO DAILY #30 tabs 11/02/24
metoprolol succinate 25 mg tablet,extended release 24 hr 12.5 mg (1/2 x 25 mg) PO DAILY #30 tabs 11/02/24
rosuvastatin 20 mg tablet 20 mg PO QPM #30 tabs 11/02/24
Home Medication Changes
plavix, toprol are new.
simvastatin changed to crestor
Pending Results: No
--- NOTE | 2024-11-03 09:45 | W.DS.TRANS ---
DC Summary - Can Striper
-
Discharge Instructions:
Discharge Diagnosis/Procedures STEMI
Angioplasty with stent to Left Anterior
Descending artery (10/31/24),
Angioplasty and stent to Right Coronary artery (
11/02/24)
Diet Low Cholesterol,Diabetic, Carb Controlled,Low
Sodium
Driving Restrictions No driving for 24 hours
Other Services Cardiac Rehab
Instructions:
Stand-Alone Forms: DC Instructions- Cath/EP Lab
Changes to Home Medications: Yes
Discharge Medications:
DC Medications w/original date entered in [employer]
aspirin 81 mg chewable tablet (Aspirin Childrens) 81 mg PO DAILY 08/29/17
nitroglycerin 0.4 mg sublingual tablet 0.4 mg sublingual [id number] PRN chest pain #25 tabs 08/29/17
gabapentin 400 mg tablet 400 mg PO DAILY 02/16/23
repaglinide 2 mg tablet 2 mg PO AC 02/16/23
albuterol sulfate 90 mcg/actuation aerosol inhaler 2 puff inhalation R Q6HPRN PRN sob 09/04/24
bupropion HCl 150 mg 24 hr tablet, extended release (Wellbutrin XL) 150 mg PO DAILY 09/04/24
dulaglutide 4.5 mg/0.5 mL subcutaneous pen injector 4.5 mg SC QWEEK 09/04/24
lorazepam 0.5 mg tablet (Ativan) 0.5 mg PO BIDPRN PRN anxiety 09/04/24
methylphenidate HCl 5 mg tablet (Ritalin) 5 mg PO BID PRN to focus 09/04/24
cholecalciferol (vitamin D3) 50 mcg (2,000 unit) tablet (Vitamin D3) 50 mcg PO DAILY 10/31/24
furosemide 40 mg tablet (Lasix) 40 mg PO DAILY 10/31/24
metformin 1,000 mg tablet 1,000 mg PO DAILY 10/31/24
pramipexole 0.5 mg tablet 0.5 mg PO QPMPRN PRN restless leg 10/31/24
levothyroxine 25 mcg tablet (Synthroid) 25 mcg PO DAILY 11/01/24
clopidogrel 75 mg tablet 75 mg PO DAILY #30 tabs 11/02/24
metoprolol succinate 25 mg tablet,extended release 24 hr 12.5 mg (1/2 x 25 mg) PO DAILY #30 tabs 11/02/24
rosuvastatin 20 mg tablet 20 mg PO QPM #30 tabs 11/02/24
Home Medication Changes
plavix and toprol are new.
simvastatin was changed to crestor
Pending Results: No
--- NOTE | 2024-11-03 11:12 | PTCARENOTE ---
Assumed care this morning. patient comfortable at rest. NSR, denies pain. Patient discharged to home, IV removed, teaching provided and new prescriptions called into her pharmacy. Walked to her car in the parking lot
== END 2024-11-03 10:59 | disposition home or self-care (01) | DRG 322 ==
LOC: IVU 14:29
PROVIDERS: Nurse Practitioner Adult Health; ADMITTING PHYSICIAN Internal Medicine Interventional Cardiology; EMERGENCY PHYSICIAN Emergency Medicine; OTHER PHYSICIAN Hospitalist
PROC: B2111ZZ Fluoroscopy of Multiple Coronary Arteries using Low Osmolar Contrast (ICD-10-PCS; 2024-10-31)
PROC: B240ZZ3 Ultrasonography of Single Coronary Artery, Intravascular (ICD-10-PCS; 2024-10-31)
PROC: 4A023N7 Measurement of Cardiac Sampling and Pressure, Left Heart, Percutaneous Approach (ICD-10-PCS; 2024-10-31)
PROC: 027034Z Dilation of Coronary Artery, One Artery with Drug-eluting Intraluminal Device, Percutaneous Approach (ICD-10-PCS; 2024-10-31)
DX: I21.4 Non-ST elevation (NSTEMI) myocardial infarction (principal); I50.32 Chronic diastolic (congestive) heart failure; Z59.02 Unsheltered homelessness; I47.20 Ventricular tachycardia, unspecified; E78.00 Pure hypercholesterolemia, unspecified; F32.A Depression, unspecified; F41.9 Anxiety disorder, unspecified; G25.81 Restless legs syndrome; I11.0 Hypertensive heart disease with heart failure; F17.200 Nicotine dependence, unspecified, uncomplicated; I25.10 Atherosclerotic heart disease of native coronary artery without angina pectoris; M54.9 Dorsalgia, unspecified; E03.9 Hypothyroidism, unspecified; E11.65 Type 2 diabetes mellitus with hyperglycemia; K21.9 Gastro-esophageal reflux disease without esophagitis; I49.3 Ventricular premature depolarization; Z60.8 Other problems related to social environment; Z59.41 Food insecurity; Z59.86 Financial insecurity; I25.2 Old myocardial infarction; Z85.828 Personal history of other malignant neoplasm of skin; Z87.01 Personal history of pneumonia (recurrent); Z90.711 Acquired absence of uterus with remaining cervical stump; Z90.49 Acquired absence of other specified parts of digestive tract; Z98.82 Breast implant status; Z95.5 Presence of coronary angioplasty implant and graft; Z79.82 Long term (current) use of aspirin; Z79.890 Hormone replacement therapy; Z79.84 Long term (current) use of oral hypoglycemic drugs; Z82.41 Family history of sudden cardiac death; Z88.6 Allergy status to analgesic agent; Z91.041 Radiographic dye allergy status; Z88.5 Allergy status to narcotic agent; Z88.8 Allergy status to other drugs, medicaments and biological substances; Z91.048 Other nonmedicinal substance allergy status
CPT/HCPCS: 80048; 80053; 80061; 82962; 83036; 83880; 84443; 84484; 85025; 85027; 85347; 92978; 93005; 93306; 93458; 93926; 99152; 99153; 99285; C1725; C1753; C1760; C1769; C1874; C1894; C9600; C9606; Q9957; Q9967

== ENCOUNTER → 2024-11-14 06:34 | Outpatient (REF) | payer OTHER, SELFPAY | LOC: RAD 06:34 | PROVIDERS: ATTENDING PHYSICIAN Internal Medicine Interventional Cardiology; FAMILY PHYSICIAN Internal Medicine | DX: I72.9 Aneurysm of unspecified site (principal) | CPT/HCPCS: 93926 ==

== ENCOUNTER 2025-01-13 14:01 | Emergency (ER) | payer OTHER, SELFPAY ==
[2025-01-13 14:08] VITALS: BP 123/84
--- NOTE | 2025-01-13 15:33 | ED.SKININJ ---
HPI-Injury
General
Chief Complaint: Skin Problem
Source: patient
Exam Limitations: none
Time Seen by Provider: 01/13/25 14:53
Nursing documentation reviewed up to this point in time: agreed with
History of Present Illness-Injury
Is this injury a work related problem?: No
Is pt an associate of [facility]?: No
Initial Injury comments:
Patient to ED with report of draining abscess to right groin. States she had a similar situation approx 1 year ago. She was seen by PCP and snuff blender and treated with oral antibiotics. SHe reports the pain and swelling resolved but site
remained hard. 3 days ago pain and swelling returned. TOday site began to drain. SHe denies fever/chills. Brought self to ED for eval.
Past History
Past History
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
followed by Dr. Freire)
ED Past Surgical History: Cardiac (Stents x 4 2018), Cholecystectomy, Gynecological (Partial hysterectomy), Orthopedic (Foot surgery, Carpal tunnel, Knee surgery X 3), Tonsilectomy and Other (Basal cell removal, breast augmentation, Abd adhesions )
Social History
Tobacco: Smoker
Alcohol: Occasional
Drug: None
Personal:
Living: alone
Employment: Employed
Family History
Family History: Other (Noncontributory)
Review of Systems
Review of Systems
Allergies reviewed?: Yes
All Other Systems: ROS reviewed and negative except as documented in HPI and ROS
Constitutional: Reports no symptoms
EENT: Reports no symptoms
Respiratory: Reports no symptoms
Cardiac: Reports no symptoms
ABD/GI: Reports no symptoms
: Reports no symptoms
Musculoskeletal: Reports no symptoms
Skin: Reports other (abscess right groin.)
Neurological: Reports no symptoms
Psychiatric: Reports no symptoms
Skin Exam
Abscess
right groin:
Description of abscess: draining
Surrounding skin:: inflammed at abscess site
Phy Exam
General Physical Exam
General Presentation: well appearing and no apparent distress
General age: appears stated age
General Skin: warm and dry
General Habitus: normal
General Mental: alert
General Hydration: appears well hydrated
Musculoskeletal Exam
Musculoskeletal Exam: full ROM and neuro vasc intact
Skin Exam
Skin Exam: normal color, warm/dry and no rash
Psychiatric Exam
Psychiatric Exam: normal mood/affect
Course
Orders/Labs/Results
Orders:
Orders
01/13/25 15:32
Wound Culture [Wound/Abscess/Other Culture] Urgent
JOHNY Source: Groin
Specimen Description: Right
Vital Signs
Initial and Last Documented VS:
Initial Vital Signs
Temp Pulse Resp BP Pulse Ox
98.8 F 83 18 123/84 96
01/13/25 14:08 01/13/25 14:08 01/13/25 14:08 01/13/25 14:08 01/13/25 14:08
Last Documented Vital Signs
Temp Pulse Resp BP Pulse Ox
98.8 F 83 18 123/84 96
01/13/25 14:08 01/13/25 14:08 01/13/25 14:08 01/13/25 14:08 01/13/25 14:08
Procedures
Incision/Drainage/Joint Aspiration
Right Groin:
Anethesia: 1% Lidocaine with Epi
Nature of site: abscess
Description of abscess: less than 3cm
How much fluid was obtained?: small amount (Began draining this AM)
Fluid description: cloudy
Treatment: antibiotics started
*Pulse Oximetry
SaO2: 96
Oxygen Mode of Delivery: Room air
Patient hypoxic: no
*Critical Care Note
Total Time (30-74mins, 75-104mins- exclusive of procedures): Not Applicable
Update Note
Update Note:
Patient to ED for eval of draining abscess to right groin. Reports large amt of drainage [employer]. Still draining on exam, culture obtained. Minimal surrounding erythema. VSS, she remains afebrile. Willplace on Keflex and discharge home. Warm
compresses 4-5 times daily Given number for general surgery follow up. SHe was given instructions on s/s to return to ED and she is agreeable to plan
ED Attending Note
-
Portions of this chart may have been created with voice recognition software.� Occasional wrong word or��sound alike� substitutions may have occurred due to the inherent limitations of voice recognition software.
Discharge Plan
Departure
Patient Disposition: Home (Routine Discharge)
Date of Disposition: 01/13/25
Time of Disposition: 15:42
Patient with high blood pressure during this ER visit?: No
Condition: Good
Covid-19: Not Applicable
Discharge Problem:
Abscess of skin
Instructions: Wound Care (DC), Abscess incision and drainage - ED (DC), Skin Abscess
Prescriptions:
New
cephalexin 500 mg capsule
500 mg PO Q6H 10 Days Qty: 40 0RF
No Action
aspirin [Aspirin Childrens] 81 MG tablet,chewable
81 mg PO DAILY
nitroglycerin 0.4 MG tablet, sublingual
0.4 mg sublingual [id number] PRN (Reason: chest pain) Qty: 25 2RF
repaglinide 2 mg Tablet
2 mg PO AC
gabapentin 400 mg Tablet
400 mg PO DAILY
methylphenidate HCl [Ritalin] 5 mg Tablet
5 mg PO BID PRN (Reason: to focus)
albuterol sulfate 90 mcg/actuation Hfa Aerosol Inhaler
2 puff INHALATION R Q6HPRN PRN (Reason: sob)
bupropion HCl [Wellbutrin XL] 150 mg Tablet Extended Release 24 Hr
150 mg PO DAILY
dulaglutide 4.5 mg/0.5 mL Pen Injector
4.5 mg SC QWEEK
lorazepam [Ativan] 0.5 mg tablet
0.5 mg PO BIDPRN PRN (Reason: anxiety)
pramipexole 0.5 mg Tablet
0.5 mg PO QPMPRN PRN (Reason: restless leg)
cholecalciferol (vitamin D3) [Vitamin D3] 50 mcg (2,000 unit) Tablet
50 mcg PO DAILY
metformin 1,000 MG tablet
1,000 mg PO DAILY
furosemide [Lasix] 40 mg Tablet
40 mg PO DAILY
levothyroxine [Synthroid] 25 mcg Tablet
25 mcg PO DAILY
rosuvastatin 20 mg Tablet
20 mg PO QPM Qty: 30 11RF
clopidogrel 75 mg Tablet
75 mg PO DAILY Qty: 30 11RF
metoprolol succinate 25 mg Tablet Extended Release 24 Hr
12.5 mg PO DAILY Qty: 30 5RF
Referrals:
Mimi Keller DO [Family Provider, Internal Medicine]
Afshin Reed MD [Active, Surgical] - Next open appointment
Activity Restrictions/Additional Instructions:
Return to the emergency department immediately for fever/chills, increasing pain/redness/swelling to site, or for any further concerns.
Interventions
Interventions:
*Risk Screen - Suicide Last Done: 01/13/25 14:08
Discharge Date and Time
Print Language: BELARUSIAN
[2025-01-13 15:40] VITALS: BMI 23.5
== END 2025-01-13 16:04 | disposition home or self-care (01) ==
LOC: EMR 14:01
PROVIDERS: EMERGENCY PHYSICIAN Emergency Medicine; FAMILY PHYSICIAN Internal Medicine
DX: L02.214 Cutaneous abscess of groin (principal); E11.9 Type 2 diabetes mellitus without complications; I25.10 Atherosclerotic heart disease of native coronary artery without angina pectoris; I10 Essential (primary) hypertension; E78.00 Pure hypercholesterolemia, unspecified; I25.2 Old myocardial infarction; K21.9 Gastro-esophageal reflux disease without esophagitis; G25.81 Restless legs syndrome; F41.9 Anxiety disorder, unspecified; F32.A Depression, unspecified; F17.200 Nicotine dependence, unspecified, uncomplicated; Z79.82 Long term (current) use of aspirin; Z79.02 Long term (current) use of antithrombotics/antiplatelets; Z79.84 Long term (current) use of oral hypoglycemic drugs; Z79.85 Long-term (current) use of injectable non-insulin antidiabetic drugs; Z95.5 Presence of coronary angioplasty implant and graft; Z85.828 Personal history of other malignant neoplasm of skin
CPT/HCPCS: 99282; 10060; 87070; 87205

== ENCOUNTER 2025-02-10 20:47 | Emergency (ER) | payer OTHER, SELFPAY ==
[2025-02-10 20:50] VITALS: BP 123/76
[2025-02-10 21:19] LABS: Urine Character Cloudy (Clear)
[2025-02-10 21:27] LABS: Urine Squamous Cell 0-2 /LPF (Few)
[2025-02-10 21:28] LABS: Urine Red Blood Cell 90-100 /HPF (0-2); Urine White Cell 50-60 /HPF (0-5)
[2025-02-10] MEDS: KEFLEX 500 MG PO (22:29)
--- NOTE | 2025-02-10 22:40 | ED.GENMED ---
History of Present Illness
General
Chief Complaint: Urinary Symptoms
Time Seen by Provider: 02/10/25 21:55
History of Present Illness
History of Present Illness:
74-year-old female with history of diabetes, CAD on Plavix, hypertension, hyperlipidemia, peripheral artery disease presenting to the emergency department for urinary symptoms. Patient reports dysuria and urinary frequency. Notes his symptoms
started yesterday. When she wiped, noticed blood. Reports history of UTI in the past. Denies any significant tenderness to the abdomen or to the back. Denies any fever. Denies chest pain, difficulty breathing, or additional acute medical
complaints
Past History
Past History
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
followed by Dr. Freire)
ED Past Surgical History: Cardiac (Stents x 4 2018), Cholecystectomy, Gynecological (Partial hysterectomy), Orthopedic (Foot surgery, Carpal tunnel, Knee surgery X 3), Tonsilectomy and Other (Basal cell removal, breast augmentation, Abd adhesions )
Social History
Tobacco: Smoker
Alcohol: Occasional
Drug: None
Personal:
Living: alone
Employment: Employed
Family History
Family History: Other (Noncontributory)
Phy Exam
Physical Exam
Physical Exam:
General: Well-appearing, no clinical signs of dehydration, nontoxic and in no acute distress
HEENT: protecting airway
Neck: appears supple
CV: Normal heart rate, regular rhythm
Resp: No accessory muscle use, no increased work of breathing, lungs clear to auscultation bilaterally
Abd: Soft and non-distended, no tenderness to palpation. No CVA tenderness
Extremities: No deformities, no swelling
Neuro: alert, no focal neurologic deficit
: deferred
Rectal: deferred
Psych: Normal affect
Skin: Intact
Course
Orders/Labs/Results
Orders:
Orders
02/10/25 21:11
Urinalysis Reflex To Culture Urgent
Date Specimen was Collected: 02/10/25
Time Specimen was Collected: 21:08
Urine Microscopic Reflex Cult Urgent
Urine Culture Urgent
JOHNY Source: U
Specimen Description:
Date Specimen was Collected: 02/10/25
Time Specimen was Collected: 21:08
02/10/25 22:20
Cephalexin Monohydrate [Keflex] 500 mg PO NOW STA
Abnormal Lab Results
02/10/25
21:11
Urine Ketones 1+ A
(Negative)
Ur Occult Blood Reflex 4+ A
(Negative)
Urine Nitrite (Reflex) Positive A
(Negative)
Urine Bilirubin 1+ A
(Negative)
Urine Urobilinogen 2+ A
(Neg - 1+)
Leukocyte Esterase Rfl 3+ A
(Negative)
Urine RBC 90-100 A /HPF
(0-2)
Urine WBC (Reflex) 50-60 A /HPF
(0-5)
Urine Bacteria (Reflex) Few A
(Negative)
Urine Albumin (Reflex) 4+ A
(Neg - Trace)
Vital Signs
Initial and Last Documented VS:
Initial Vital Signs
Temp Pulse Resp BP Pulse Ox
98.5 F 87 20 123/76 95
02/10/25 20:50 02/10/25 20:50 02/10/25 20:50 02/10/25 20:50 02/10/25 20:50
Last Documented Vital Signs
Temp Pulse Resp BP Pulse Ox
98.5 F 87 20 123/76 95
02/10/25 20:50 02/10/25 20:50 02/10/25 20:50 02/10/25 20:50 10/26/25 20:50
MDM/Problems Addressed
MDM/Problems Addressed:
74-year-old female presenting to the emergency department for urinary complaints. Vital signs on arrival are normal.
On exam, patient is resting comfortably, no acute distress. Patient is afebrile, nontoxic. Reassuring examination. No tenderness to abdomen, no tenderness to the flank. Without present concern for pyelonephritis or kidney stone. Urine is
grossly positive infection. Patient however is hemodynamically stable. Feel candidate for discharge with outpatient treatment with antibiotic. Will start patient on cephalexin. Urine culture sent. Return precautions discussed and patient
verbalized understanding
*Pulse Oximetry
SaO2: 95
Oxygen Mode of Delivery: Room air
Patient hypoxic: no
*Critical Care Note
Total Time (30-74mins, 75-104mins- exclusive of procedures): Not Applicable
ED Attending Note
-
Portions of this chart may have been created with voice recognition software.� Occasional wrong word or��sound alike� substitutions may have occurred due to the inherent limitations of voice recognition software.
Discharge Plan
Departure
Patient Disposition: Home (Routine Discharge)
Date of Disposition: 02/10/25
Time of Disposition: 22:37
Patient with high blood pressure during this ER visit?: No
Condition: Good
Discharge Problem:
Urinary tract infection
Instructions: Urinary Tract Infection, Adult (DC)
Prescriptions:
New
cephalexin 500 mg capsule
500 mg PO Q12H 7 Days Qty: 14 0RF
No Action
aspirin [Aspirin Childrens] 81 MG tablet,chewable
81 mg PO DAILY
nitroglycerin 0.4 MG tablet, sublingual
0.4 mg sublingual [id number] PRN (Reason: chest pain) Qty: 25 2RF
repaglinide 2 mg Tablet
2 mg PO AC
gabapentin 400 mg Tablet
400 mg PO DAILY
methylphenidate HCl [Ritalin] 5 mg Tablet
5 mg PO BID PRN (Reason: to focus)
albuterol sulfate 90 mcg/actuation Hfa Aerosol Inhaler
2 puff INHALATION R Q6HPRN PRN (Reason: sob)
bupropion HCl [Wellbutrin XL] 150 mg Tablet Extended Release 24 Hr
150 mg PO DAILY
dulaglutide 4.5 mg/0.5 mL Pen Injector
4.5 mg SC QWEEK
lorazepam [Ativan] 0.5 mg tablet
0.5 mg PO BIDPRN PRN (Reason: anxiety)
pramipexole 0.5 mg Tablet
0.5 mg PO QPMPRN PRN (Reason: restless leg)
cholecalciferol (vitamin D3) [Vitamin D3] 50 mcg (2,000 unit) Tablet
50 mcg PO DAILY
metformin 1,000 MG tablet
1,000 mg PO DAILY
furosemide [Lasix] 40 mg Tablet
40 mg PO DAILY
levothyroxine [Synthroid] 25 mcg Tablet
25 mcg PO DAILY
rosuvastatin 20 mg Tablet
20 mg PO QPM Qty: 30 11RF
clopidogrel 75 mg Tablet
75 mg PO DAILY Qty: 30 11RF
metoprolol succinate 25 mg Tablet Extended Release 24 Hr
12.5 mg PO DAILY Qty: 30 5RF
cephalexin 500 mg capsule
500 mg PO Q6H 10 Days Qty: 40 0RF
Referrals:
UNKNOWN - PT DOES,NOT KNOW [Family Provider]
Activity Restrictions/Additional Instructions:
You were seen in the emergency department for urinary symptoms
You were found to have a urinary tract infection. You were started on antibiotics. Please take as directed
Please follow-up closely with your primary care physician.
Return to the emergency department for any worsening of your symptoms, or any development of chest pain, difficulty breathing, abdominal pain with persistent vomiting and inability to tolerate food or liquid by mouth (concern for dehydration),
weakness, headache or confusion, fever greater than 100.4, or any additional symptoms that are concerning to you.
Thank you for choosing [facility].
Interventions
Interventions:
*Risk Screen - Suicide Last Done: 02/10/25 20:50
*General Assessment Last Done: 02/10/25 20:50
*Neglect/Abuse Screening Last Done: 02/10/25 20:50
*ED- Fall Risk Assessment Last Done: 02/10/25 22:15
*ED COVID-19 Vaccine History Last Done: 02/10/25 22:15
*ED Influenza Vaccine History Last Done: 02/10/25 22:15
ED-Female Genitourinary Assessment Last Done: 02/10/25 22:03
Discharge Date and Time
Print Language: GEORGIAN
== END 2025-02-10 22:48 | disposition home or self-care (01) ==
LOC: EMR 20:47
PROVIDERS: EMERGENCY PHYSICIAN Student in an Organized Health Care Education/Training Program
DX: N39.0 Urinary tract infection, site not specified (principal); B96.4 Proteus (mirabilis) (morganii) as the cause of diseases classified elsewhere; E11.51 Type 2 diabetes mellitus with diabetic peripheral angiopathy without gangrene; I25.10 Atherosclerotic heart disease of native coronary artery without angina pectoris; I10 Essential (primary) hypertension; E78.00 Pure hypercholesterolemia, unspecified; F41.9 Anxiety disorder, unspecified; F32.A Depression, unspecified; K21.9 Gastro-esophageal reflux disease without esophagitis; G25.81 Restless legs syndrome; F17.200 Nicotine dependence, unspecified, uncomplicated; Z79.02 Long term (current) use of antithrombotics/antiplatelets; Z79.82 Long term (current) use of aspirin; Z79.84 Long term (current) use of oral hypoglycemic drugs; Z87.440 Personal history of urinary (tract) infections; Z95.5 Presence of coronary angioplasty implant and graft; Z85.828 Personal history of other malignant neoplasm of skin
CPT/HCPCS: 99283; 81003; 81015; 87077; 87086; 87186

== ENCOUNTER 2025-02-15 10:16 | Emergency (ER) | payer OTHER, SELFPAY ==
[2025-02-15 10:19] VITALS: BP 117/72
[2025-02-15 11:44] LABS: Hematocrit 40.7 % (37.0-47.0); Hemoglobin 13.5 g/dL (12.0-16.0); Mean Corp Hgb Conc. 33.2 g/dL (33.0-37.0); Mean Corpuscular Volume 90.0 fL (81.0-99.0); Nucleated Red Blood Cells % 0 %; Platelet Count 210 10^3/uL (130-400); Red Cell Dist. Width 13.2 % (11.5-14.5)
--- NOTE | 2025-02-15 11:57 | ED.GENMED ---
History of Present Illness
General
Chief Complaint: Nose Bleed
Source: patient
Exam Limitations: none
Time Seen by Provider: 02/15/25 11:06
Nursing documentation reviewed up to this point in time: agreed with
History of Present Illness
History of Present Illness:
74-year-old female with past medical history of heart disease status post multiple stents currently on Plavix also history of diabetes presenting to the emergency department with concerns of intermittent nosebleed since yesterday is on Plavix and
aspirin. Also recently started Effexor. Denies any lightheadedness numbness weakness nausea vomiting no trauma to the nose.
Past History
Past History
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
followed by Dr. Freire)
ED Past Surgical History: Cardiac (Stents x 4 2018), Cholecystectomy, Gynecological (Partial hysterectomy), Orthopedic (Foot surgery, Carpal tunnel, Knee surgery X 3), Tonsilectomy and Other (Basal cell removal, breast augmentation, Abd adhesions )
Social History
Tobacco: Smoker
Alcohol: Occasional
Drug: None
Personal:
Living: alone
Employment: Employed
Family History
Family History: Other (Noncontributory)
Review of Systems
Review of Systems
Allergies reviewed?: Yes
All Other Systems: ROS reviewed and negative except as documented in HPI and ROS
Phy Exam
Physical Exam
Physical Exam:
GENERAL: Alert , in no apparent distress
EYE: pupils equal and reactive
NECK: Supple, no significant adenopathy.
ENT: Areas of previous bleeding to the right sided nasal septum no active bleeding, no blood to the left nasal septum or nare o/p clr, mmm.
CARDIAC: Regular rate and rhythm .
LUNGS: Clear breath sounds bilaterally, no acute respiratory distress, no wheezes/rales/rhonchi
ABDOMEN: Soft, without focal tenderness, no r/g, no cvat
NEUROLOGICAL: Alert and oriented, no focal neuro deficits
SKIN: Warm and dry, skin intact.
MUSCULOSKELETAL: No edema, well perfused.
PSYCH: Normal and appropriate interaction.
Course
Orders/Labs/Results
Orders:
Orders
02/15/25 11:25
CBC/With Diff [Complete Blood Count/With Diff] Urgent
Abnormal Lab Results
02/15/25
11:25
Absolute Neuts (auto) 6.8 H 10^3/uL
(1.4-6.5)
Neutrophils % 76.5 H %
(42.2-75.2)
Lymphocytes % 15.1 L %
(20.5-51.1)
02/15/25 11:25
Vital Signs
Initial and Last Documented VS:
Initial Vital Signs
Temp Pulse Resp BP Pulse Ox
98.2 F 95 18 117/72 74
02/15/25 10:19 02/15/25 10:19 02/15/25 10:19 02/15/25 10:19 02/15/25 10:19
Last Documented Vital Signs
Temp Pulse Resp BP Pulse Ox
98.2 F 95 18 117/72 74
02/15/25 10:19 02/15/25 10:19 02/15/25 10:19 02/15/25 10:19 02/15/25 10:19
Procedures
Nosebleed
Drug treatment: Lidocaine and Epinephrine
Treatment: Silver nitrate cautery
Post treatment bleeding: none- good control
MDM/Problems Addressed
MDM/Problems Addressed:
74-year-old female presenting to the emergency department today with concerns of right sided nasal bleed starting yesterday. Denies any trauma. Vital signs normal on arrival labs unremarkable normal platelet count normal hemoglobin. Patient was
cauterized to the right nare otherwise no ongoing bleeding stable for discharge. Return precautions given.
*Pulse Oximetry
SaO2: 74
Oxygen Mode of Delivery: Room air
Patient hypoxic: no (95)
*Critical Care Note
Total Time (30-74mins, 75-104mins- exclusive of procedures): Not Applicable
ED Attending Note
-
Portions of this chart may have been created with voice recognition software.� Occasional wrong word or��sound alike� substitutions may have occurred due to the inherent limitations of voice recognition software.
Discharge Plan
Departure
Patient Disposition: Home (Routine Discharge)
Date of Disposition: 02/15/25
Time of Disposition: 12:02
Patient with high blood pressure during this ER visit?: No
Condition: Good
Covid-19: Not Applicable
Discharge Problem:
Acute anterior epistaxis
Instructions: Nosebleeds (DC)
Prescriptions:
No Action
aspirin [Aspirin Childrens] 81 MG tablet,chewable
81 mg PO DAILY
nitroglycerin 0.4 MG tablet, sublingual
0.4 mg sublingual [id number] PRN (Reason: chest pain) Qty: 25 2RF
repaglinide 2 mg Tablet
2 mg PO AC
gabapentin 400 mg Tablet
400 mg PO DAILY
methylphenidate HCl [Ritalin] 5 mg Tablet
5 mg PO BID PRN (Reason: to focus)
albuterol sulfate 90 mcg/actuation Hfa Aerosol Inhaler
2 puff INHALATION R Q6HPRN PRN (Reason: sob)
bupropion HCl [Wellbutrin XL] 150 mg Tablet Extended Release 24 Hr
150 mg PO DAILY
dulaglutide 4.5 mg/0.5 mL Pen Injector
4.5 mg SC QWEEK
lorazepam [Ativan] 0.5 mg tablet
0.5 mg PO BIDPRN PRN (Reason: anxiety)
pramipexole 0.5 mg Tablet
0.5 mg PO QPMPRN PRN (Reason: restless leg)
cholecalciferol (vitamin D3) [Vitamin D3] 50 mcg (2,000 unit) Tablet
50 mcg PO DAILY
metformin 1,000 MG tablet
1,000 mg PO DAILY
furosemide [Lasix] 40 mg Tablet
40 mg PO DAILY
levothyroxine [Synthroid] 25 mcg Tablet
25 mcg PO DAILY
rosuvastatin 20 mg Tablet
20 mg PO QPM Qty: 30 11RF
clopidogrel 75 mg Tablet
75 mg PO DAILY Qty: 30 11RF
metoprolol succinate 25 mg Tablet Extended Release 24 Hr
12.5 mg PO DAILY Qty: 30 5RF
cephalexin 500 mg capsule
500 mg PO Q6H 10 Days Qty: 40 0RF
cephalexin 500 mg capsule
500 mg PO Q12H 7 Days Qty: 14 0RF
Referrals:
Mimi Keller DO [Family Provider, Internal Medicine]
Activity Restrictions/Additional Instructions:
You came to the emergency department today with concerns of a nosebleed. This was treated with silver nitrate cauterization. Please use ointment to the area to help protect the area in the future. Return for any worsening, new or concerning
symptoms.
Interventions
Interventions:
*Risk Screen - Suicide Last Done: 02/15/25 10:19
*General Assessment Last Done: 02/15/25 10:59
*Neglect/Abuse Screening Last Done: 02/15/25 10:19
*ED- Fall Risk Assessment Last Done: 02/15/25 10:59
*ED COVID-19 Vaccine History Last Done: 02/15/25 10:59
*ED Influenza Vaccine History Last Done: 02/15/25 10:59
Discharge Date and Time
Print Language: THAI
[2025-02-15 12:09] VITALS: BP 120/78
== END 2025-02-15 12:10 | disposition home or self-care (01) ==
LOC: EMR 10:16
PROVIDERS: Physician Assistant; EMERGENCY PHYSICIAN Emergency Medicine; FAMILY PHYSICIAN Internal Medicine
DX: R04.0 Epistaxis (principal); E11.9 Type 2 diabetes mellitus without complications; E78.00 Pure hypercholesterolemia, unspecified; F41.8 Other specified anxiety disorders; G25.81 Restless legs syndrome; I11.9 Hypertensive heart disease without heart failure; I25.10 Atherosclerotic heart disease of native coronary artery without angina pectoris; F17.200 Nicotine dependence, unspecified, uncomplicated; Z79.02 Long term (current) use of antithrombotics/antiplatelets; Z79.82 Long term (current) use of aspirin; Z87.01 Personal history of pneumonia (recurrent); Z90.49 Acquired absence of other specified parts of digestive tract; Z90.711 Acquired absence of uterus with remaining cervical stump; Z95.5 Presence of coronary angioplasty implant and graft
CPT/HCPCS: 99282; 30901; 85025

== ENCOUNTER 2025-02-15 13:32 | Emergency (ER) | payer OTHER, SELFPAY ==
[2025-02-15 13:45] VITALS: BP 100/68
[2025-02-15 14:06] VITALS: BMI 23.3
[2025-02-15 14:08] VITALS: BP 133/54
--- NOTE | 2025-02-15 15:41 | ED.GENMED ---
History of Present Illness
General
Chief Complaint: Nose Bleed
Source: patient
Exam Limitations: none
Time Seen by Provider: 02/15/25 15:04
Nursing documentation reviewed up to this point in time: agreed with
History of Present Illness
History of Present Illness:
Patient is a 74-year-old female with past medical history of heart disease, stents on Plavix and ASA hypertension diabetes presents back to the ER for recurrent nosebleed. Patient has had intermittent nosebleeds since yesterday. She is on Plavix
and aspirin. She was seen here earlier today and had right nares cauterized. She reports prior to arrival a blood on them but then stopped. She currently has no complaints. She denies any associated headaches.
Past History
Past History
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
followed by Dr. Freire)
ED Past Surgical History: Cardiac (Stents x 4 2018), Cholecystectomy, Gynecological (Partial hysterectomy), Orthopedic (Foot surgery, Carpal tunnel, Knee surgery X 3), Tonsilectomy and Other (Basal cell removal, breast augmentation, Abd adhesions )
Social History
Tobacco: Smoker
Alcohol: Occasional
Drug: None
Personal:
Living: alone
Employment: Employed
Family History
Family History: Other (Noncontributory)
Phy Exam
General Physical Exam
General Presentation: no apparent distress
General age: appears stated age
General Skin: warm and dry
General Habitus: normal
General Mental: alert
General Hydration: appears well hydrated
ENT Exam
ENT Exam: other (right nares with dried blood I can visualize the area that was cauterized from earlier visit no active bleeding left nares clear )
Neurological Exam
Neurological Exam: alert and oriented x3
Musculoskeletal Exam
Musculoskeletal Exam: full ROM
Skin Exam
Skin Exam: normal color and warm/dry
Psychiatric Exam
Psychiatric Exam: normal mood/affect
Course
Vital Signs
Initial and Last Documented VS:
Initial Vital Signs
Temp Pulse Resp BP Pulse Ox
98 F 86 16 100/68 98
02/15/25 13:45 02/15/25 13:45 02/15/25 13:45 02/15/25 13:45 02/15/25 13:45
Last Documented Vital Signs
Temp Pulse Resp BP Pulse Ox
98.1 F 70 16 133/54 97
02/15/25 14:08 02/15/25 14:08 02/15/25 14:08 02/15/25 14:08 02/15/25 15:43
MDM/Problems Addressed
Differential Diagnosis Includes:
not limited to : nosebleed
MDM/Problems Addressed:
Patient was seen here earlier had areas cauterized complaint bleeding again prior to arrival however bleeding has since resolved. We discussed options possible packing she would like to hold off at this time and this is reasonable as there is no
further bleeding. Did discuss with her holding pressure if bleeding does recur and obviously to return to the ER for any worsening of symptoms. She was given ENT if needed.
*Pulse Oximetry
SaO2: 97
Oxygen Mode of Delivery: Room air
Patient hypoxic: no
*Critical Care Note
Total Time (30-74mins, 75-104mins- exclusive of procedures): Not Applicable
ED Attending Note
-
Portions of this chart may have been created with voice recognition software.� Occasional wrong word or��sound alike� substitutions may have occurred due to the inherent limitations of voice recognition software.
Discharge Plan
Departure
Patient Disposition: Home (Routine Discharge)
Date of Disposition: 02/15/25
Time of Disposition: 15:55
Patient with high blood pressure during this ER visit?: No
Condition: Fair
Covid-19: Not Applicable
Discharge Problem:
Epistaxis
Instructions: Nosebleeds (DC)
Prescriptions:
No Action
aspirin [Aspirin Childrens] 81 MG tablet,chewable
81 mg PO DAILY
nitroglycerin 0.4 MG tablet, sublingual
0.4 mg sublingual [id number] PRN (Reason: chest pain) Qty: 25 2RF
repaglinide 2 mg Tablet
2 mg PO AC
gabapentin 400 mg Tablet
400 mg PO DAILY
methylphenidate HCl [Ritalin] 5 mg Tablet
5 mg PO BID PRN (Reason: to focus)
albuterol sulfate 90 mcg/actuation Hfa Aerosol Inhaler
2 puff INHALATION R Q6HPRN PRN (Reason: sob)
bupropion HCl [Wellbutrin XL] 150 mg Tablet Extended Release 24 Hr
150 mg PO DAILY
dulaglutide 4.5 mg/0.5 mL Pen Injector
4.5 mg SC QWEEK
lorazepam [Ativan] 0.5 mg tablet
0.5 mg PO BIDPRN PRN (Reason: anxiety)
pramipexole 0.5 mg Tablet
0.5 mg PO QPMPRN PRN (Reason: restless leg)
cholecalciferol (vitamin D3) [Vitamin D3] 50 mcg (2,000 unit) Tablet
50 mcg PO DAILY
metformin 1,000 MG tablet
1,000 mg PO DAILY
furosemide [Lasix] 40 mg Tablet
40 mg PO DAILY
levothyroxine [Synthroid] 25 mcg Tablet
25 mcg PO DAILY
rosuvastatin 20 mg Tablet
20 mg PO QPM Qty: 30 11RF
clopidogrel 75 mg Tablet
75 mg PO DAILY Qty: 30 11RF
metoprolol succinate 25 mg Tablet Extended Release 24 Hr
12.5 mg PO DAILY Qty: 30 5RF
cephalexin 500 mg capsule
500 mg PO Q6H 10 Days Qty: 40 0RF
cephalexin 500 mg capsule
500 mg PO Q12H 7 Days Qty: 14 0RF
Referrals:
Mimi Keller DO [Family Provider, Internal Medicine]
Sherman Moss MD [Active, Otology]
Activity Restrictions/Additional Instructions:
Do not blow your nose. Avoid putting anything in your nose. If bleeding reoccurs you may apply pressure to the area for about 10 to 15 minutes. If no improvement return to the ER for any concerning bleeding.
Follow-up with ENT as needed Next week for reevaluation.
Interventions
Interventions:
*Risk Screen - Suicide Last Done: 02/15/25 13:45
*General Assessment Last Done: 02/15/25 14:09
*Neglect/Abuse Screening Last Done: 02/15/25 13:45
*ED- Fall Risk Assessment Last Done: 02/15/25 14:09
*ED COVID-19 Vaccine History Last Done: 02/15/25 14:09
*ED Influenza Vaccine History Last Done: 02/15/25 14:09
*Nursing Disposition Last Done: 02/15/25 16:25
ED-EENT Assessment Last Done: 02/15/25 14:08
Discharge Date and Time
Discharge Date/Time: 02/15/25 16:26
Print Language: [place]LAND[place]
== END 2025-02-15 16:26 | disposition home or self-care (01) ==
LOC: EMR 13:32
PROVIDERS: EMERGENCY PHYSICIAN Emergency Medicine; FAMILY PHYSICIAN Internal Medicine
DX: R04.0 Epistaxis (principal); E11.9 Type 2 diabetes mellitus without complications; E78.00 Pure hypercholesterolemia, unspecified; F41.8 Other specified anxiety disorders; G25.81 Restless legs syndrome; I11.9 Hypertensive heart disease without heart failure; I25.10 Atherosclerotic heart disease of native coronary artery without angina pectoris; F17.200 Nicotine dependence, unspecified, uncomplicated; Z79.02 Long term (current) use of antithrombotics/antiplatelets; Z79.82 Long term (current) use of aspirin; Z87.01 Personal history of pneumonia (recurrent); Z90.49 Acquired absence of other specified parts of digestive tract; Z90.711 Acquired absence of uterus with remaining cervical stump; Z95.5 Presence of coronary angioplasty implant and graft
CPT/HCPCS: 99282

== ENCOUNTER 2025-03-14 19:43 | Emergency (ER) | payer OTHER, SELFPAY ==
[2025-03-14 19:45] VITALS: BP 140/75
--- NOTE | 2025-03-14 20:51 | ED.GENMED ---
History of Present Illness
General
Chief Complaint: Musculo-Skeletal Complaint
Source: patient
Time Seen by Provider: 03/14/25 19:54
History of Present Illness
History of Present Illness:
74-year-old female past medical history of hypertension, hyperlipidemia, previous LA, known PAD, [id number] diabetes presenting to the ER for evaluation of left-sided generalized rib pain after she was given a tight hug 1 week ago,
continued pain since. No shortness of breath but patient states it does cause her increased pain to take deep inspiration. Denies any fevers or infectious symptoms. No other concerns or injuries. Patient states she has taken Tylenol but without
any relief.
Past History
Past History
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
followed by Dr. Freire)
ED Past Surgical History: Cardiac (Stents x 4 2018), Cholecystectomy, Gynecological (Partial hysterectomy), Orthopedic (Foot surgery, Carpal tunnel, Knee surgery X 3), Tonsilectomy and Other (Basal cell removal, breast augmentation, Abd adhesions )
Social History
Tobacco: Smoker
Alcohol: Occasional
Drug: None
Personal:
Living: alone
Employment: Employed
Family History
Family History: Other (Noncontributory)
Review of Systems
Review of Systems
All Other Systems: ROS reviewed and negative except as documented in HPI and ROS
Phy Exam
Physical Exam
Physical Exam:
GENERAL: Alert , in no apparent distress
HEAD: Normocephalic atraumatic
EYE: conjunctiva clear
NECK: Supple
ENT: o/p clr, mmm.
CARDIAC: Regular rate and rhythm
LUNGS: Clear breath sounds bilaterally, no acute respiratory distress, no wheezes/rales/rhonchi
NEUROLOGICAL: Alert and oriented
SKIN: Warm and dry, skin intact.
MUSCULOSKELETAL: well perfused.
PSYCH: Normal and appropriate interaction.
Scores
Heart Failure Risk
Heart Failure Risk Score: Not Applicable
Heart Score for Chest Pain Patients
STEMI patient?: Not applicable
Withdrawal Assessment of Alcohol
Withdrawal Assessment Completed?: Not applicable
Course
Orders/Labs/Results
Orders:
Orders
03/14/25 19:54
CR Ribs-left 3 Vw W/pa Chest Urgent
Comment:
Reason For Exam: pain
Vital Signs
Initial and Last Documented VS:
Initial Vital Signs
Temp Pulse Resp BP Pulse Ox
98.1 F 86 18 140/75 99
03/14/25 19:45 03/14/25 19:45 03/14/25 19:45 03/14/25 19:45 03/14/25 19:45
Last Documented Vital Signs
Temp Pulse Resp BP Pulse Ox
98.1 F 86 18 140/75 99
03/14/25 19:45 03/14/25 19:45 03/14/25 19:45 03/14/25 19:45 03/14/25 20:52
MDM/Problems Addressed
Differential Diagnosis Includes:
Rib Fracture
Contusion
Cartilaginous injury
PTX
MDM/Problems Addressed:
74-year-old female presenting to the ER with left rib pain after she was given a tight hug 1 week ago. No other injury sustained. Hemodynamically stable. No signs of hypoxia. Rib series x-ray ordered shows no acute abnormalities, no
pneumothorax. Given patient's past medical history unable to treat with anti-inflammatories. Will give short-term course of oxycodone for pain relief. Advised side effects including constipation and drowsiness. Patient understanding. Stable for
discharge.
*Radiology
Radiology exam reviewed: preliminary read by ED provider (no PTX, no obvious rib fx)
*Pulse Oximetry
SaO2: 99
Oxygen Mode of Delivery: Room air
Patient hypoxic: no
*Critical Care Note
Total Time (30-74mins, 75-104mins- exclusive of procedures): Not Applicable
ED Attending Note
-
Portions of this chart may have been created with voice recognition software.� Occasional wrong word or��sound alike� substitutions may have occurred due to the inherent limitations of voice recognition software.
Discharge Plan
Departure
Patient Disposition: Home (Routine Discharge)
Date of Disposition: 03/14/25
Time of Disposition: 20:51
Patient with high blood pressure during this ER visit?: Yes
Discharge Problem:
Rib pain on left side
Instructions: Rib fracture or bruised rib - ED (DC)
Prescriptions:
New
oxycodone-acetaminophen [Percocet] 5-325 mg tablet
1 tab PO Q6HPRN PRN (Reason: pain) Qty: 5 0RF
No Action
aspirin [Aspirin Childrens] 81 MG tablet,chewable
81 mg PO DAILY
nitroglycerin 0.4 MG tablet, sublingual
0.4 mg sublingual [id number] PRN (Reason: chest pain) Qty: 25 2RF
repaglinide 2 mg Tablet
2 mg PO AC
gabapentin 400 mg Tablet
400 mg PO DAILY
methylphenidate HCl [Ritalin] 5 mg Tablet
5 mg PO BID PRN (Reason: to focus)
albuterol sulfate 90 mcg/actuation Hfa Aerosol Inhaler
2 puff INHALATION R Q6HPRN PRN (Reason: sob)
bupropion HCl [Wellbutrin XL] 150 mg Tablet Extended Release 24 Hr
150 mg PO DAILY
dulaglutide 4.5 mg/0.5 mL Pen Injector
4.5 mg SC QWEEK
lorazepam [Ativan] 0.5 mg tablet
0.5 mg PO BIDPRN PRN (Reason: anxiety)
pramipexole 0.5 mg Tablet
0.5 mg PO QPMPRN PRN (Reason: restless leg)
cholecalciferol (vitamin D3) [Vitamin D3] 50 mcg (2,000 unit) Tablet
50 mcg PO DAILY
metformin 1,000 MG tablet
1,000 mg PO DAILY
furosemide [Lasix] 40 mg Tablet
40 mg PO DAILY
levothyroxine [Synthroid] 25 mcg Tablet
25 mcg PO DAILY
rosuvastatin 20 mg Tablet
20 mg PO QPM Qty: 30 11RF
clopidogrel 75 mg Tablet
75 mg PO DAILY Qty: 30 11RF
metoprolol succinate 25 mg Tablet Extended Release 24 Hr
12.5 mg PO DAILY Qty: 30 5RF
cephalexin 500 mg capsule
500 mg PO Q6H 10 Days Qty: 40 0RF
cephalexin 500 mg capsule
500 mg PO Q12H 7 Days Qty: 14 0RF
Referrals:
Mimi Keller DO [Family Provider, Internal Medicine]
Interventions
Interventions:
*Risk Screen - Suicide Last Done: 03/14/25 19:45
*General Assessment Last Done: 03/14/25 19:45
*Neglect/Abuse Screening Last Done: 03/14/25 19:45
*ED- Fall Risk Assessment Last Done: 03/14/25 20:24
*ED COVID-19 Vaccine History Last Done: 03/14/25 20:24
*ED Influenza Vaccine History Last Done: 03/14/25 20:24
*Nursing Disposition Last Done: 03/14/25 21:03
ED-Musculoskeletal Assessment Last Done: 03/14/25 20:24
Discharge Date and Time
Discharge Date/Time: 03/14/25 21:07
Print Language: GREEK
== END 2025-03-14 21:07 | disposition home or self-care (01) ==
LOC: EMR 19:43
PROVIDERS: EMERGENCY PHYSICIAN Emergency Medicine; FAMILY PHYSICIAN Internal Medicine
DX: R07.89 Other chest pain (principal); E11.9 Type 2 diabetes mellitus without complications; E78.00 Pure hypercholesterolemia, unspecified; I10 Essential (primary) hypertension; I25.2 Old myocardial infarction; I25.10 Atherosclerotic heart disease of native coronary artery without angina pectoris; G25.81 Restless legs syndrome; F41.8 Other specified anxiety disorders; F17.200 Nicotine dependence, unspecified, uncomplicated; Z87.01 Personal history of pneumonia (recurrent); Z90.49 Acquired absence of other specified parts of digestive tract; Z90.711 Acquired absence of uterus with remaining cervical stump; Z95.5 Presence of coronary angioplasty implant and graft
CPT/HCPCS: 99283; 71101